=== PATIENT | female | born 1940 | race Caucasian/White ===

== ENCOUNTER 2018-02-08 18:50 | Inpatient (IN) ==
[2018-02-08] MEDS ORDERED: Naloxone 0.4 MG/ML INJ IVP PRN ×2 (23:55)
--- NOTE | 2018-02-09 00:05 | Internal Med History&Physical ---
Date of Encounter: 02/08/18 Time of Encounter: 23:00 Internal Medicine - H&P: HPI Chief complaint: Abdominal pain and vomiting Admitted From: Home Plans for Post Hospital Care: Home History of present illness: Ms. Og is a 77 year old female present to [facility] emergency room for nausea and vomiting and abdominal pain. Past medical history is significant for hypertension, rheumatoid arthritis. Patient said started from this afternoon patient suddenly started vomiting, vomiting was stomach content, no blood. Patient also started to have abdominal pain after vomiting. The pain located on epigastric area, radiates to the back. Patient denies fever, shortness of breath, or chest pain. Patient has one-time diarrhea this afternoon, after that no further diarrhea. In the [facility] emergency room, she was found elevated lipase and CT abdomen consistent with acute pancreatitis. Patient was transferred to our hospital for acute pancreatitis. Past Med Surg Social Fam HX - Past Medical History Medical history: COPD, hypertension, osteoporosis, RA Psychiatric history: no psych history - Past Surgical History Surgical History: cataract - Social History Smoking Status: Former smoker Smokeless Tobacco Status: No Alcohol use: none Drug use: none - Family History Mother History Unknown: Yes Internal Medicine - H&P: Meds Calcium Carbonate/Vitamin D3 [Calcium 600 with Vit D Chew Tb] 1 tab PO BID 06/01 [History] Denosumab [Prolia (For Outpatient Infusion)] 60 mg IJ Q6M 06/01/17 [History] Lisinopril [Zestril] 10 mg PO DAILY 06/01/17 [History] Hydroxychloroquine [Plaquenuil] 1.5 tab PO DAILY 07/17/17 [History] Sulfasalazine [Azulfidine] 500 mg PO BID 07/17/17 [History] Folic Acid 1 mg PO DAILY #30 tablet 01/18/18 [Rx] Adalimumab [Humira] 40 mg SQ Q2W 02/08/18 [History] Ferrous Sulfate [Iron] 325 mg PO BID 02/08/18 [History] 3 Allergy/AdvReac Type Severity Reaction Status Date / Time alendronate sodium Allergy Vomiting Verified 11/10/17 13:26 Penicillins [PCN] Allergy Anaphylaxis Verified 11/10/17 13:26 All Systems PM: A 10-system review of systems was performed and is negative for pertinent findings except as documented above in the HPI. - Constitutional Vitals: Temp Pulse Resp BP Pulse Ox 98.7 F 94 15 125/74 93 02/08/18 22:15 02/08/18 22:15 02/08/18 22:15 02/08/18 22:15 02/08/18 22:22 General appearance: Present: mild distress, A&O X 3, answers questions appropriately - Head Head exam: Present: atraumatic, normocephalic - Eye Eye exam: Present: PERRL, conjuntiva pink, sclera anicteric Pupils: Present: PERRL - Neck Neck exam general surgery: Present: supple, trachea midline. Absent: lymphadenopathy - Respiratory Respiratory exam: Present: CTAB. Absent: accessory muscle use, rales, rhonchi, wheezes - Cardiovascular Cardiovascular exam: Present: RRR, +S1, +S2. Absent: diastolic murmur, gallop, rubs, systolic murmur - GI/Abdominal GI/Abdominal exam: Present: normal bowel sounds, soft, no peritoneal signs. Absent: distended, tenderness - Extremities Exam Extremities exam: Present: warm, radial pulses palpable and symmetrical. Absent : calf tenderness, cyanotic, pedal edema - Neurological Exam Neurological exam: Present: CN II-XII intact, oriented X3, no focal deficits. Absent: pronater drift, facial droop, speech deficit - Skin Skin exam: Present: dry, intact Internal Med - H&P Results - EKG Data -: EKG Interpreted by Myself EKG shows normal: sinus rhythm Rate: tachycardia - Assessment and plan (1) Acute renal failure Current Visit: Yes Status: Acute Assessment and plan: Patient has severe nausea and vomiting. Her creatinine level is elevated from a normal baseline to 1.28. Consider acute renal failure, most likely due to dehydration. - Continue IV fluid to hydrate patient. Follow-up renal function. Qualifiers: Acute renal failure type: unspecified Qualified Code(s): N17.9 - Acute kidney failure, unspecified (2) Leukocytosis Current Visit: Yes Status: Acute Assessment and plan: Patient has elevated WBC to 20K, most likely reactive from acute pancreatitis and dehydration. However, patient has a mild elevated bilirubin, need to rule out acute cholangitis. Will order US liver to rule out gallstone/acute cholangitis. We will continue empirically antibiotic treatment with Cipro and Flagyl at this point. Qualifiers: Leukocytosis type: leukemoid reaction Qualified Code(s): D72.823 - Leukemoid reaction (3) Rheumatoid arthritis Current Visit: Yes Status: Acute Assessment and plan: Continue follow-up as outpatient Qualifiers: Rheumatoid arthritis location: unspecified site Rheumatoid factor presence : unspecified presence Qualified Code(s): M06.9 - Rheumatoid arthritis, unspecified (4) DVT prophylaxis Current Visit: Yes Status: Acute Assessment and plan: Heparin subcutaneously (5) Acute pancreatitis Current Visit: No Status: Acute Assessment and plan: Patient has acute onset abdominal pain with nausea vomiting. Elevated lipase and CT abdomen all suggest acute pancreatitis. - Place patient on nothing by mouth, IV fluid, pain medication and Zofran for nausea - Follow up lipase level - US liver to rule out gallstone - Lipid penal to rule out hypertriglyceridemia. - Patient denies alcohol use Qualifiers: Pancreatitis type: unspecified pancreatitis type Acute pancreatitis complication: no infection or necrosis Qualified Code(s): K85.90 - Acute pancreatitis without necrosis or infection, unspecified - Time Spent With Patient Total time spent is greater than 50% in coordination of care (as documented) at patient's floor/unit and/or counseling patient: 40 minutes Greater than 35 minutes
[2018-02-09] MEDS: OXYCODONE Oral CONC 10 MG/0.5 ML ORAL.SYG SL PRN ×4 (00:18→20:53)
[2018-02-09] MEDS: Ondansetron 4 MG/2 ML VIAL IVP PRN ×2 (00:19→04:20)
[2018-02-09] MEDS: 0.9 % Sodium Chloride 1,000 ML IVC SCH ×5 (00:23→18:10)
[2018-02-09] MEDS ORDERED: Potassium Chloride 40 MEQ, Lidocaine 1% 2 ML in D5% in Water 500 ML IVPB ONE (01:00)
[2018-02-09] MEDS ORDERED: *HR* FentaNYL (PF) 100 MCG/2 ML VIAL IVP ONE ×4 (01:53→14:13)
[2018-02-09] MEDS ORDERED: OXYCODONE Oral CONC 10 MG/0.5 ML ORAL.SYG SL PRN (04:33)
[2018-02-09] MEDS: *HR* Heparin 5,000 UNIT/ML VIAL SQ SCH ×2 (05:00→18:10)
[2018-02-09 06:06] LABS: Basophils % 0.2 %; Hematocrit 44.2 % (35.3-44.9); Immature Granulocytes % 0.4 % (0-4); Lymphocytes # 0.9 K/mcL (0.6-4.6); Lymphocytes % 4.4 %; Mean Corpuscular HGB Conc 31.7 g/dL (31.6-35.5); Mean Corpuscular Hemoglobin 30.1 pg (28.0-33.3); Mean Corpuscular Volume 95.1 fL (83.0-100.0); Mean Platelet Volume 10.7 fL (9.4-12.4); Monocytes # 1.4 K/mcL (0.0-1.3); Monocytes % 6.8 %; Neutrophils # 17.5 K/mcL (1.6-8.9); Platelet Count 152 K/mcL (140-400); Red Blood Count 4.65 M/mcL (3.82-4.97); Red Cell Distribution Width 16.5 % (11.5-14.5); Segmented Neutrophils % 88.2 %
[2018-02-09 06:20] LABS: Chol/HDL Ratio 2.7 (0-4.9)
[2018-02-09 06:33] LABS: BUN/Creatinine Ratio 18 (6-26); Blood Urea Nitrogen 18 mg/dL (8-23); Calcium 7.5 mg/dL (8.6-10.3); Carbon Dioxide 19 mEq/L (23-29); Chloride 111 mEq/L (98-107); Glucose 206 mg/dL (70-105); Lipase 1611 Units/L (11-82); Magnesium 1.5 mg/dL (1.6-2.6); Osmolality,Calculated 294 (280-300); Potassium 4.5 mEq/L (3.5-5.1); Sodium 138 mEq/L (136-145); eGFR For African Americans > 60 (> 60); eGFR For Non-African Americans 55 (> 60)
[2018-02-09] MEDS ORDERED: 0.9 % Sodium Chloride 1,000 ML IVC ONE ×2 (08:33→13:50)
--- NOTE | 2018-02-09 08:35 | Internal Med Progress Note ---
<Janel Yu - Last Filed: 02/09/18 13:35> Date of Encounter: 02/09/18 Time of Encounter: 08:30 - Assessment and plan (1) Acute pancreatitis Current Visit: No Status: Acute Assessment and plan: Patient has acute pancreatitis demonstrated by CT abdomen and elevated lipase. She had sudden onset abdominal pain with nausea and vomiting. Liver ultrasound demonstrated cholelithiasis with no evidence of acute cholecystitis. No alcohol use. No history of pancreatitis. Lipid panel WNL, calcium. Lipase 1611 (>1800) afebrile, tachycardic 110, WBC 19.9 (20.6) triglycerides 101 Ca 7.5 - NPO, IVF, Zofran for nausea -oxycodone for moderate pain and may add Dilaudid for severe pain since fentanyl and oxycodone are not helping much and she reported Dilaudid did help -recheck lipase, AST, ALT levels -G.I. consult with possible ERCP Qualifiers: Pancreatitis type: unspecified pancreatitis type Acute pancreatitis complication: no infection or necrosis Qualified Code(s): K85.90 - Acute pancreatitis without necrosis or infection, unspecified (2) Acute renal failure Current Visit: Yes Status: Acute Assessment and plan: Acute renal failure in setting of nausea, vomiting, dehydration. Most likely prerenal. Cr 0.98 (1.28) improving - Continue IVF -monitor Scr -avoid nephrotoxic agents Qualifiers: Acute renal failure type: unspecified Qualified Code(s): N17.9 - Acute kidney failure, unspecified (3) Leukocytosis Current Visit: Yes Status: Acute Assessment and plan: Patient has elevated WBC 19.9 (20.6), most likely secondary to acute pancreatitis and dehydration. Liver ultrasound demonstrated cholelithiasis without cholecystitis. Patient was empirically treated with Cipro and Flagyl due to concern of cholangitis. Qualifiers: Leukocytosis type: leukemoid reaction Qualified Code(s): D72.823 - Leukemoid reaction (4) Rheumatoid arthritis Current Visit: Yes Status: Acute Assessment and plan: Continue follow-up as outpatient Qualifiers: Rheumatoid arthritis location: unspecified site Rheumatoid factor presence : unspecified presence Qualified Code(s): M06.9 - Rheumatoid arthritis, unspecified (5) DVT prophylaxis Current Visit: Yes Status: Acute Assessment and plan: Heparin subcutaneously (6) Hypertension Current Visit: Yes Status: Acute Assessment and plan: History of hypertension controlled with lisinopril. blood pressure stable will hold blood pressure medication since NPO Qualifiers: Qualified Code(s): I10 - Essential (primary) hypertension - Time Spent With Patient Total time spent is greater than 50% in coordination of care (as documented) at patient's floor/unit and/or counseling patient: - Subjective Interval history: 77-year-old female past medical history of COPD, RA, hypertension who presented as a transfer from [place] ED due to acute pancreatitis demonstrated by CT. She presented initially complaining of 7 epigastric abdominal pain with nausea and vomiting. Upon my examination she is alert and oriented times 3 and appears uncomfortable. She reports her pain is not controlled and she feels nauseous. - Constitutional Vitals: Temp Pulse Resp BP Pulse Ox 98.6 F 110 18 110/67 91 02/09/18 06:36 02/09/18 06:36 02/09/18 06:36 02/09/18 06:36 02/09/18 06:36 General appearance: Present: mild distress, A&O X 3, answers questions appropriately Exam: Gen.: Vitals noted. No acute distress. AAOx3 HEENT: oropharynx clear, Normocephalic, atraumatic Neck: Supple. No adenopathy. Cardiac: RRR, no murmur, +S1/S2 Pulmonary: CTA bilaterally, no wheezes, rales or rhonchi, equal chest expansion Abdomen: soft, diffusely tender, Bowel sounds noted, no guarding Extremities: no BLE edema, nontender calf, no cyanosis or clubbing Neuro: A&Ox3, moves all extremities, no focal deficits Psych: Appropriate mood and behavior Internal Medicine: Result - Labs CBC & Chem 7: 02/09/18 05:37 02/09/18 05:37 Labs: Short CBC 02/09/18 Range/Units 05:37 WBC 19.9 H (4.3-11.1) K/mcL Hgb 14.0 (11.5-15.4) g/dL Hct 44.2 (35.3-44.9) % Plt Count 152 (140-400) K/mcL Neutrophils # 17.5 H (1.6-8.9) K/mcL BMP 02/09/18 05:37 Sodium 138 Potassium 4.5 D Chloride 111 H Carbon Dioxide 19 L BUN 18 Creatinine 0.98 Glucose 206 H Calcium 7.5 L - Impressions Impressions Liver Ultrasound 02/09/18 07:30 IMPRESSION: Findings consistent with pancreatitis. Cholelithiasis with no evidence for acute cholecystitis. D/ / Clark Lozada MD / Clark Lozada MD Interpreting Provider: Clark Lozada MD Consult Discharge Plan - Plan Referrals: Chau Cadena MD [Primary Care Provider] - <Quincy Zheng - Last Filed: 02/09/18 18:01> Date of Encounter: 02/09/18 - Assessment and plan (1) Acute pancreatitis Current Visit: No Status: Acute Qualifiers: Pancreatitis type: unspecified pancreatitis type Acute pancreatitis complication: no infection or necrosis Qualified Code(s): K85.90 - Acute pancreatitis without necrosis or infection, unspecified (2) Acute renal failure Current Visit: Yes Status: Acute Qualifiers: Acute renal failure type: unspecified Qualified Code(s): N17.9 - Acute kidney failure, unspecified (3) Leukocytosis Current Visit: Yes Status: Acute Qualifiers: Leukocytosis type: leukemoid reaction Qualified Code(s): D72.823 - Leukemoid reaction (4) Rheumatoid arthritis Current Visit: Yes Status: Acute Qualifiers: Rheumatoid arthritis location: unspecified site Rheumatoid factor presence : unspecified presence Qualified Code(s): M06.9 - Rheumatoid arthritis, unspecified (5) DVT prophylaxis Current Visit: Yes Status: Acute (6) Hypertension Current Visit: Yes Status: Acute Qualifiers: Qualified Code(s): I10 - Essential (primary) hypertension - Time Spent With Patient Total time spent is greater than 50% in coordination of care (as documented) at patient's floor/unit and/or counseling patient: - Constitutional Vitals: Temp Pulse Resp BP Pulse Ox 98.6 F 122 18 100/68 92 02/09/18 14:30 02/09/18 14:30 02/09/18 14:30 02/09/18 14:30 02/09/18 14:30 Internal Medicine: Result - Labs CBC & Chem 7: 02/09/18 05:37 02/09/18 05:37 Labs: Short CBC 02/09/18 Range/Units 05:37 WBC 19.9 H (4.3-11.1) K/mcL Hgb 14.0 (11.5-15.4) g/dL Hct 44.2 (35.3-44.9) % Plt Count 152 (140-400) K/mcL Neutrophils # 17.5 H (1.6-8.9) K/mcL BMP 02/09/18 05:37 Sodium 138 Potassium 4.5 D Chloride 111 H Carbon Dioxide 19 L BUN 18 Creatinine 0.98 Glucose 206 H Calcium 7.5 L Liver Function 02/09/18 Range/Units 11:57 Total Bilirubin 0.8 (0.3-1.0) mg/dL AST 69 H (13-39) Units/L ALT 91 H (7-52) Units/L - Impressions Impressions Liver Ultrasound 02/09/18 07:30 IMPRESSION: Findings consistent with pancreatitis. Cholelithiasis with no evidence for acute cholecystitis. D/ / Clark Lozada MD / Clark Lozada MD Interpreting Provider: Clark Lozada MD - Attending Attestation I performed a history and physical examination of the patient and discussed his/ her management with the resident. I reviewed the residents note and agree with the documented findings and plan of care.
[2018-02-09] MEDS: MetroNIDAZOLE 500 MG/100 ML 500 MG/100 ML BAG IVPB SCH ×3 (09:15→23:04)
[2018-02-09] MEDS ORDERED: *HR* FentaNYL (PF) 100 MCG/2 ML VIAL EP ONE (11:48)
[2018-02-09] MEDS: *HR* HYDROmorphone 2 MG/ML SYRINGE IVP PRN ×3 (14:44→23:02)
[2018-02-09] MEDS ORDERED: *HR* HYDROmorphone 2 MG/ML SYRINGE IVP PRN (15:25)
[2018-02-09 16:48] LABS: Bilirubin,Total 0.8 mg/dL (0.3-1.0)
[2018-02-10] MEDS: 0.9 % Sodium Chloride 1,000 ML IVC SCH (02:28)
[2018-02-10] MEDS: *HR* HYDROmorphone 2 MG/ML SYRINGE IVP PRN ×5 (04:08→22:01)
[2018-02-10 05:36] LABS: Nucleated Red Blood Cells 0.3 /100 WBC (0)
[2018-02-10 05:38] LABS: Hematocrit 39.6 % (35.3-44.9); Hemoglobin 12.3 g/dL (11.5-15.4); Mean Corpuscular HGB Conc 31.1 g/dL (31.6-35.5); Mean Corpuscular Hemoglobin 30.8 pg (28.0-33.3); Mean Platelet Volume 11.1 fL (9.4-12.4); Platelet Count 117 K/mcL (140-400); Red Cell Distribution Width 17.4 % (11.5-14.5)
[2018-02-10] MEDS: *HR* Heparin 5,000 UNIT/ML VIAL SQ SCH ×2 (05:50→17:50)
[2018-02-10 06:06] LABS: Lymphocytes # 3.7 K/mcL (0.6-4.6); Neutrophils # 22.8 K/mcL (1.6-8.9); Platelet Estimate Slight Decrease (Normal); Polychromasia 1+ (Not Present)
[2018-02-10 06:10] LABS: Anisocytosis 1+ (Not Present); Macrocytosis Present (Not Present)
[2018-02-10 07:15] LABS: Calcium 5.9 mg/dL (8.6-10.3); Potassium 4.7 mEq/L (3.5-5.1)
[2018-02-10] MEDS ORDERED: Calcium Gluconate 2,000 MG in D5% in Water 100 ML IVPB STA (07:27)
[2018-02-10] MEDS ORDERED: Calcium Gluconate 2,000 MG in 0.9 % Sodium Chloride 100 ML IVPB ONE ×2 (07:59→16:31)
--- NOTE | 2018-02-10 08:25 | Internal Med Progress Note ---
<Janel Yu - Last Filed: 02/10/18 08:22> Date of Encounter: 02/10/18 Time of Encounter: 08:15 - Assessment and plan (1) Acute pancreatitis Current Visit: No Status: Inactive Assessment and plan: Patient has acute pancreatitis demonstrated by CT abdomen and elevated lipase. She had sudden onset abdominal pain with nausea and vomiting. Liver ultrasound demonstrated cholelithiasis with no evidence of acute cholecystitis. No alcohol use. No history of pancreatitis. Lipid panel WNL, calcium. Lipase 1093 (>1800) afebrile, tachycardic 117, WBC 25.6 (20.6) triglycerides 101 Ca 7.5 -patient reports abdominal pain has improved but is still uncomfortable. Abdominal exam unchanged from yesterday: soft, diffusely tender, bowel sounds present - NPO, IVF, Zofran for nausea -oxycodone for moderate pain and may add Dilaudid for severe pain since fentanyl and oxycodone are not helping much and she reported Dilaudid did help -G.I. consulted, recommendations appreciated Qualifiers: Pancreatitis type: unspecified pancreatitis type Acute pancreatitis complication: no infection or necrosis Qualified Code(s): K85.90 - Acute pancreatitis without necrosis or infection, unspecified (2) Acute renal failure Current Visit: Yes Status: Acute Assessment and plan: Acute renal failure in setting of nausea, vomiting, dehydration. Most likely prerenal. Cr 1.59 (1.28) - Continue IVF -monitor Scr -avoid nephrotoxic agents Qualifiers: Acute renal failure type: unspecified Qualified Code(s): N17.9 - Acute kidney failure, unspecified (3) Leukocytosis Current Visit: Yes Status: Acute Assessment and plan: Patient has elevated WBC 25.6 (20.6), most likely secondary to acute pancreatitis and dehydration. Liver ultrasound demonstrated cholelithiasis without cholecystitis. -Patient was empirically treated with Cipro and Flagyl. Continue antibiotics -will continue to monitor Qualifiers: Leukocytosis type: leukemoid reaction Qualified Code(s): D72.823 - Leukemoid reaction (4) Hypocalcemia Current Visit: Yes Status: Acute Assessment and plan: Patient takes calcium supplements b.i.d. at home for hypocalcemia Calcium 5.9 -supplement calcium today and as needed -will continue to monitor (5) Hypertension Current Visit: Yes Status: Acute Assessment and plan: History of hypertension controlled with lisinopril. blood pressure stable will hold blood pressure medication since NPO Qualifiers: Qualified Code(s): I10 - Essential (primary) hypertension (6) Rheumatoid arthritis Current Visit: Yes Status: Acute Assessment and plan: Continue follow-up as outpatient Qualifiers: Rheumatoid arthritis location: unspecified site Rheumatoid factor presence : unspecified presence Qualified Code(s): M06.9 - Rheumatoid arthritis, unspecified (7) DVT prophylaxis Current Visit: Yes Status: Acute Assessment and plan: Heparin subcutaneously (8) Hypoxia Current Visit: Yes Status: Acute Assessment and plan: Likely secondary to fluid overload due to treatment with IVF for pancreatitis. But also in differential PE and ARDS. -SPO2 90% on 4L -patient denies chest pain, shortness of breath. -Decreased breath sounds bilaterally at bases. No lower extremity swelling. -Order CXR to evaluate for fluid overloaded. Consider if CXR normal then order chest CT and lower extremity Doppler's -Continue supplemental oxygen - Time Spent With Patient Total time spent is greater than 50% in coordination of care (as documented) at patient's floor/unit and/or counseling patient: - Subjective Interval history: 77-year-old female past medical history of COPD, RA, hypertension who presented as a transfer from [place] [facility] due to acute pancreatitis demonstrated by CT and elevated lipase. She presented initially complaining of sudden epigastric abdominal pain with nausea and vomiting. Upon my examination she is alert and oriented times 3 and appears uncomfortable but more comfortable than yesterday. She reports her pain is more tolerable. She admits to some nausea noted vomiting. She denies chest pain, shortness of breath, change in urination. - Constitutional Vitals: Temp Pulse Resp BP Pulse Ox 99.6 F 117 16 98/53 90 02/10/18 06:58 02/10/18 06:58 02/10/18 06:58 02/10/18 06:58 02/10/18 06:58 General appearance: Present: mild distress, A&O X 3, answers questions appropriately Exam: Gen.: Vitals noted. No acute distress. AAOx3 HEENT: oropharynx clear, Normocephalic, atraumatic Neck: Supple. No adenopathy. Cardiac: RRR, no murmur, +S1/S2 Pulmonary: decreased breath sounds at bases bilaterally, no wheezes, rales or rhonchi, equal chest expansion Abdomen: soft, diffusely tender, Bowel sounds noted, no guarding MSK: ROM intact, no joint swelling noted Extremities: no BLE edema, nontender calf, no cyanosis or clubbing Neuro: A&Ox3, moves all extremities, no focal deficits Psych: Appropriate mood and behavior Internal Medicine: Result - Labs CBC & Chem 7: 02/10/18 05:18 02/10/18 06:36 Labs: Short CBC 02/10/18 Range/Units 05:18 WBC 26.5 H (4.3-11.1) K/mcL Hgb 12.3 D (11.5-15.4) g/dL Hct 39.6 (35.3-44.9) % Plt Count 117 L (140-400) K/mcL Neutrophils # 22.8 H (1.6-8.9) K/mcL BMP 02/10/18 06:36 Sodium 135 L Potassium 4.7 Chloride 111 H Carbon Dioxide 19 L BUN 29 H Creatinine 1.59 H Glucose 134 H Calcium 5.9 L* Liver Function 02/09/18 Range/Units 11:57 Total Bilirubin 0.8 (0.3-1.0) mg/dL AST 69 H (13-39) Units/L ALT 91 H (7-52) Units/L Consult Discharge Plan - Plan Referrals: Chau Cadena MD [Primary Care Provider] - <[facility] lane - Last Filed: 02/10/18 12:43> Date of Encounter: 02/10/18 - Assessment and plan (1) Acute pancreatitis Current Visit: No Status: Inactive Qualifiers: Pancreatitis type: unspecified pancreatitis type Acute pancreatitis complication: no infection or necrosis Qualified Code(s): K85.90 - Acute pancreatitis without necrosis or infection, unspecified (2) Acute renal failure Current Visit: Yes Status: Acute Qualifiers: Acute renal failure type: unspecified Qualified Code(s): N17.9 - Acute kidney failure, unspecified (3) Leukocytosis Current Visit: Yes Status: Acute Qualifiers: Leukocytosis type: leukemoid reaction Qualified Code(s): D72.823 - Leukemoid reaction (4) Rheumatoid arthritis Current Visit: Yes Status: Acute Qualifiers: Rheumatoid arthritis location: unspecified site Rheumatoid factor presence : unspecified presence Qualified Code(s): M06.9 - Rheumatoid arthritis, unspecified (5) DVT prophylaxis Current Visit: Yes Status: Acute (6) Hypertension Current Visit: Yes Status: Acute Qualifiers: Qualified Code(s): I10 - Essential (primary) hypertension (7) Hypocalcemia Current Visit: Yes Status: Acute (8) Hypoxia Current Visit: Yes Status: Acute - Time Spent With Patient Total time spent is greater than 50% in coordination of care (as documented) at patient's floor/unit and/or counseling patient: - Constitutional Vitals: Temp Pulse Resp BP Pulse Ox 99.6 F 117 16 88/59 89 02/10/18 11:13 02/10/18 11:13 02/10/18 10:28 02/10/18 11:13 02/10/18 11:13 Internal Medicine: Result - Labs CBC & Chem 7: 02/10/18 05:18 02/10/18 06:36 Labs: Short CBC 02/10/18 Range/Units 05:18 WBC 26.5 H (4.3-11.1) K/mcL Hgb 12.3 D (11.5-15.4) g/dL Hct 39.6 (35.3-44.9) % Plt Count 117 L (140-400) K/mcL Neutrophils # 22.8 H (1.6-8.9) K/mcL BMP 02/10/18 06:36 Sodium 135 L Potassium 4.7 Chloride 111 H Carbon Dioxide 19 L BUN 29 H Creatinine 1.59 H Glucose 134 H Calcium 5.9 L* Liver Function 02/09/18 02/10/18 Range/Units 11:57 09:55 Total Bilirubin 0.8 1.3 H (0.3-1.0) mg/dL Direct Bilirubin 0.8 H (0.0-0.2) mg/dL AST 69 H 46 H (13-39) Units/L ALT 91 H 51 (7-52) Units/L Alkaline Phosphatase 45 (34-104) Units/L Albumin 2.8 L (3.5-5.7) g/dL - ABG Interpretation ABG results: ABG ABG pH 7.26 pH Units (7.32-7.45) L 02/10/18 10:31 ABG pCO2 37 mmHg (35-45) 02/10/18 10:31 ABG pO2 67 mmHg (85-104) L 02/10/18 10:31 ABG O2 Saturation 90 % (95-98) L 02/10/18 10:31 - Impressions Impressions Chest X-Ray 02/10/18 08:22 IMPRESSION: Small pleural effusions with associated airspace disease, atelectasis versus pneumonia. Findings are new from 02/08/2018. D/ / Clark Sabillon MD / Clark Sabillon MD Interpreting Provider: Clark Sabillon MD - Attending Attestation I performed a history and physical examination of the patient and discussed his/ her management with the resident. I reviewed the residents note and agree with the documented findings and plan of care. Patient continues to require more oxygen and takes only shallow breaths. Chest x-ray shows atelectasis bilaterally. Creatinine has worsened today to 1.59. Blood pressure last 88/50 with HR 117. 1. Acute pancreatitis - lactic acid 2.2, lipase is decreasing, pain is improving though patient still in sever pain. - Continue IV fluids, IV pain medication, symptomatic treatment, NPO. - IV fluids may need held. Patient having severe abdominal pain still but fluid overloaded - GI consulted, recommendations appreciated 2. Acute respiratory failure with hypoxia - Not on O2 at home, currently saturatiing 90% on 4 L O2. ABG consistent with respiratory acidosis also metabolic acidosis as well. - possibly from atelectasis, fluid overload. Chest x-ray today did show small pleural effusions with airspace disease. - Echocardiogram, rule out cardiac etiology - Continue incentive spirometry. - Consult Pulmonology 3. Non-anion gap metabolic acidosis 4. Acute renal failure May be contrast induced nephropathy, patient was given aggressive IV fluid hydration, will recheck. 5. Hypocalcemia - replace as needed 6. Leukocytosis Worsened today to 26k, was 19k. This is likely to pancreatitis. No signs of cholecystitis on liver ultrasound or CT abdomen/pelvis. Continue Cipro/ Flagyl
[2018-02-10] MEDS: MetroNIDAZOLE 500 MG/100 ML 500 MG/100 ML BAG IVPB SCH ×2 (09:48→17:01)
[2018-02-10 10:24] LABS: VBG Ionized Calcium 0.82 mmol/L (1.15-1.35)
[2018-02-10] MEDS: Levalbuterol Neb 1.25 MG/3 ML IH SCH ×3 (10:28→22:56)
[2018-02-10 10:29] LABS: Albumin 2.8 g/dL (3.5-5.7); Albumin/Globulin Ratio 1.4 (1.1-2.2); Bilirubin,Direct 0.8 mg/dL (0.0-0.2); Bilirubin,Indirect 0.5 mg/dL (0.0-1.2); Bilirubin,Total 1.3 mg/dL (0.3-1.0); Total Protein 4.8 g/dL (6.4-8.9)
[2018-02-10 10:35] LABS: ABG Base Excess -10 mEq/L (-2 to 3); ABG HCO3 17 mEq/L (21-27); ABG Oxygen Saturation 90 % (95-98); ABG PCO2 37 mmHg (35-45); ABG PH 7.26 pH Units (7.32-7.45); ABG PO2 67 mmHg (85-104); ABG TCO2 18 mEq/L (20-26)
[2018-02-10] MEDS ORDERED: 0.9 % Sodium Chloride 500 ML IVC ONE (11:53)
[2018-02-10] MEDS ORDERED: 0.9 % Sodium Chloride 500 ML ONE (12:21)
--- NOTE | 2018-02-10 14:27 | Gastroenterology Consult Note ---
<Bianka Reed - Last Filed: 02/10/18 14:20> Date of Encounter: 02/10/18 Time of Encounter: 11:20 - Assessment and plan (1) Acute pancreatitis Current Visit: Yes Status: Acute Assessment and plan: Pt presents with sudden onset of abdominal pain, nausea and vomiting. She has elevated lipase, and CT images consistent with acute pancreatitis. She also has elevated Wbc and persistent pain while NPO. Will order MRCP stat to rule out cholangitis. She may need ERCP dependent on MRCP results. Qualifiers: Pancreatitis type: unspecified pancreatitis type Acute pancreatitis complication: unspecified Qualified Code(s): K85.90 - Acute pancreatitis without necrosis or infection, unspecified - Time Spent With Patient Total time spent is greater than 50% in coordination of care (as documented) at patient's floor/unit and/or counseling patient: GI History of Present Illness - Data of Consult Patient: new to practice Consult date: 02/10/18 Requesting Physician: Elio Ayon MD - Consult Narrative Reason for consult: acute pancreatitis History of present illness: Ms. Og is a 77 year old female present to [place] emergency room for nausea and vomiting and abdominal pain. Past medical history is significant for hypertension, rheumatoid arthritis. Patient said started from this afternoon patient suddenly started vomiting, vomiting was stomach content, no blood. Patient also started to have abdominal pain after vomiting. The pain located on epigastric area, radiates to the back. Patient denies fever, shortness of breath, or chest pain. Patient has one-time diarrhea this afternoon, after that no further diarrhea. In the [place] emergency room, she was found elevated lipase and CT abdomen consistent with acute pancreatitis. Patient was transferred to our hospital for acute pancreatitis.RUQ ultrasound shows enlarged pancreas consistent with the patient' s known history pancreatitis. There is fluid seen around the liver consistent with ascites and the patient's known history of pancreatitis. Cholelithiasis no evidence of acute cholecystitis. She has been NPO and receiving IVF, cipro, flagyl, and pain medications. She has had persistant pain, and her WBC are 36, lipase 1093, and calcium 5.9 this am. She is on sulfasalazine, plaquenil, and humira at home for RA. EGD: denies Colon: 06/04 normal NSAIDS: denies Anticoagulation: heparin 0550 Past Med Surg Social Fam HX - Past Medical History Medical history: COPD, hypertension, osteoporosis, RA Psychiatric history: no psych history - Past Surgical History Surgical History: cataract - Social History Smoking Status: Former smoker Smokeless Tobacco Status: No Alcohol use: none Drug use: none - Family History Mother History Unknown: Yes Review of Systems: GI: as per [facility]: denies fever or chills EYES: denies yellow discoloration ENT: denies pain with swallowing or difficulty swallowing CARDIO: denies chest pain, palpitations RESP: Shortness of breath with exertion : denies change in color of urine NEURO: weakness HEME: Denies any bruising MS: chronic back and joint pain. DERM: denies rash or itching PSYCH: Denies history of anxiety or depression - Constitutional Vitals: Temp Pulse Resp BP Pulse Ox 99.6 F 118 22 110/72 88 02/10/18 11:13 02/10/18 13:09 02/10/18 13:09 02/10/18 13:09 02/10/18 13:09 Exam: CONSTITUTIONAL:~drowsy but able to answer questions,~HEAD:~normocephalic.~EYES:~ no jaundice.~NECK:~no obvious swelling.~HEART:~regular rate and rhythm, no murmurs.~LUNGS:~bilateral fair air entry.~ABDOMEN:~distended, soft, very tender , no masses palpable, no organomegaly.~RECTAL EXAM:~Deferred.~EXTREMITIES:~no clubbing, cyanosis or edema.~SKIN:~pallor noted, no stigmata of chronic liver disease.~NEUROLOGIC:~no obvious focal defect.~~~~ Results - Labs CBC & Chem 7: 02/10/18 05:18 02/10/18 06:36 Labs: Last Result Calcium 5.9 mg/dL (8.6-10.3) L* 02/10/18 06:36 Triglycerides 101 mg/dL (< 150) 02/09/18 05:37 Entire Visit Hgb 12.3 g/dL (11.5-15.4) D 02/10/18 05:18 Hct 39.6 % (35.3-44.9) 02/10/18 05:18 Total Bilirubin 1.3 mg/dL (0.3-1.0) H 02/10/18 09:55 AST 46 Units/L (13-39) H 02/10/18 09:55 ALT 51 Units/L (7-52) 02/10/18 09:55 Lipase 1093 Units/L (11-82) H 02/10/18 06:36 - ABG ABG results: ABG ABG pH 7.26 pH Units (7.32-7.45) L 02/10/18 10:31 ABG pCO2 37 mmHg (35-45) 02/10/18 10:31 ABG pO2 67 mmHg (85-104) L 02/10/18 10:31 ABG O2 Saturation 90 % (95-98) L 02/10/18 10:31 - Impressions Impressions Chest X-Ray 02/10/18 08:22 IMPRESSION: Small pleural effusions with associated airspace disease, atelectasis versus pneumonia. Findings are new from 02/08/2018. D/ / Clark Sabillon MD / Clark Sabillon MD Interpreting Provider: Clark Sabillon MD Consult Discharge Plan - Plan Referrals: Chau Cadena MD [Primary Care Provider] - <Hina Bhatt - Last Filed: 02/10/18 20:49> Date of Encounter: 02/10/18 Time of Encounter: 19:00 - Time Spent With Patient Total time spent is greater than 50% in coordination of care (as documented) at patient's floor/unit and/or counseling patient: GI History of Present Illness - Data of Consult Requesting Physician: Elio Ayon MD - Consult Narrative History of present illness: Ms. Og is a 77 year old female - Constitutional Vitals: Temp Pulse Resp BP Pulse Ox 99.4 F 120 24 106/68 94 02/10/18 16:48 02/10/18 16:48 02/10/18 16:48 02/10/18 16:48 02/10/18 16:48 Results - Labs CBC & Chem 7: 02/10/18 05:18 02/10/18 06:36 Labs: Last Result Calcium 5.9 mg/dL (8.6-10.3) L* 02/10/18 06:36 Triglycerides 101 mg/dL (< 150) 02/09/18 05:37 Entire Visit Hgb 12.3 g/dL (11.5-15.4) D 02/10/18 05:18 Hct 39.6 % (35.3-44.9) 02/10/18 05:18 Total Bilirubin 1.3 mg/dL (0.3-1.0) H 02/10/18 09:55 AST 46 Units/L (13-39) H 02/10/18 09:55 ALT 51 Units/L (7-52) 02/10/18 09:55 Lipase 1093 Units/L (11-82) H 02/10/18 06:36 - ABG ABG results: ABG ABG pH 7.26 pH Units (7.32-7.45) L 02/10/18 10:31 ABG pCO2 37 mmHg (35-45) 02/10/18 10:31 ABG pO2 67 mmHg (85-104) L 02/10/18 10:31 ABG O2 Saturation 90 % (95-98) L 02/10/18 10:31 - Impressions Impressions Chest X-Ray 02/10/18 08:22 IMPRESSION: Small pleural effusions with associated airspace disease, atelectasis versus pneumonia. Findings are new from 02/08/2018. D/ / Clark Sabillon MD / Clark Sabillon MD Interpreting Provider: Clark Sabillon MD Abdomen MRI 02/10/18 09:41 IMPRESSION: 1. This evaluation is moderately limited due to motion, as well as artifact related to body habitus. 2. Pleural effusions, ascites and anasarca are identified. 3. Moderate mesenteric fat stranding around the pancreas. 4. No focal signal abnormality related to the pancreatic parenchyma ; however, this finding is considered limited in sensitivity. 5. Cholelithiasis 6. No obvious choledocholithiasis; however, MRCP images suffer from motion degradation. Dilation of the biliary tree noted with the common bile duct measuring up to 8 mm. Pancreatic duct is not dilated. D/ / Max Barnes / Max Barnes Interpreting Provider: Max Barnes - Attending Attestation I have personally performed a face to face evaluation on this patient. I have reviewed and agree with the care plan. History and Exam by me shows: Patient seen at the bedside currently she has a mask in place. Per patient her abdominal pain is better controlled. Assessment patient with gallstone pancreatitis with pleural effusion/ respiratory distress. MRCP is negative for any CBD obstruction. Recommendation: Pain control IV fluid.
--- NOTE | 2018-02-10 16:07 | Pulmonology Consult Note ---
Date of Encounter: 02/10/18 Time of Encounter: 13:00 Assessment and Plan (1) Acute pancreatitis Status: Acute Patient was evaluated and I suspect her hypoxia is multifactorial mainly from splinting and atelectasis from abdominal pain and encouraged her to participate in the incentive spirometry and pleural effusion is expected with patients with pancreatitis. However reviewing her MRI of her abdomen and the pancreatic findings this is of concern especially with white cell count increasing and electrolytes abnormalities mainly calcium. I have discussed with the primary team for GI consultation and consider transferring patients to [facility]. Limit fluid resuscitation as long as blood pressure is stable and no evidence of hypoperfusion. Patient is being covered with antibiotics appropriately. Patient has history of smoking and bronchodilators is reasonable. Thank you very much for consultation we will continue follow-up. Qualifiers: Pancreatitis type: unspecified pancreatitis type Acute pancreatitis complication: unspecified Qualified Code(s): K85.90 - Acute pancreatitis without necrosis or infection, unspecified (2) Atelectasis of both lungs Status: Acute (3) Hypoxia Status: Acute (4) Rheumatoid arthritis Status: Chronic Qualifiers: Rheumatoid arthritis location: unspecified site Rheumatoid factor presence : unspecified presence Qualified Code(s): M06.9 - Rheumatoid arthritis, unspecified (5) Acute kidney injury Status: Acute History of Present Illness Consult date: 02/10/18 Requesting physician: Quincy Zheng Reason for consult: other (Pancreatitis) Chief complaint: Abdominal pain and nausea and vomiting History of present illness: This is pleasant 77-year-old female with past medical history significant for smoking and she has been transferred from [place] emergency room for nausea and vomiting and abdominal pain and she was diagnosed with pancreatitis. Patient started to have more shortness of breath and requiring oxygen and pulmonary was consult that for evaluation. Patient was evaluated in the presence of her daughter at the bedside. Patient also has history of rheumatoid arthritis. Patient has poor appetite now and she continued to have abdominal pains which radiate to her back and denies any fever or chest pain. Patient has no constipation. Patient had evidence of pleural effusion and atelectasis on the images. Past Med Surg Social Fam HX - Past Medical History Medical history: COPD, hypertension, osteoporosis, RA Psychiatric history: no psych history - Past Surgical History Surgical History: cataract - Social History Smoking Status: Former smoker Smokeless Tobacco Status: No Alcohol use: none Drug use: none - Family History Mother History Unknown: Yes Medications and Allergies Calcium Carbonate/Vitamin D3 [Calcium 600 with Vit D Chew Tb] 1 tab PO BID 06/01 [History] Denosumab [Prolia (For Outpatient Infusion)] 60 mg IJ Q6M 06/01/17 [History] Lisinopril [Zestril] 10 mg PO DAILY 06/01/17 [History] Hydroxychloroquine [Plaquenuil] 300 mg PO [id number] 07/17/17 [History] Sulfasalazine [Azulfidine] 1,000 mg PO BID 07/17/17 [History] Folic Acid 1 mg PO DAILY #30 tablet 01/18/18 [Rx] Adalimumab [Humira] 40 mg SQ Q2W 02/08/18 [History] Ferrous Sulfate [Iron] 325 mg PO BID 02/08/18 [History] Hydroxychloroquine [Plaquenuil] 400 mg PO SUSA 02/09/18 [History] 3 Allergy/AdvReac Type Severity Reaction Status Date / Time alendronate sodium Allergy Vomiting Verified 11/10/17 13:26 Penicillins [PCN] Allergy Anaphylaxis Verified 11/10/17 13:26 All Systems: The remainder of the systems were reviewed and are negative Physical Examination Vital Signs: Vital Signs, Last 4 Hours Pulse Resp BP Pulse Ox 02/10/18 13:09 118 22 110/72 88 General appearance: appears uncomfortable Eyes: nonicteric ENT: oropharynx dry Mallampati (class): 3 Neck: supple Effort: mildly labored Auscultation: bilateral: diminished breath sounds (Mainly in the bases) Percussion: bilateral: dull Cardiovascular: regular rate and rhythm Gastrointestinal: hypoactive bowel sounds, tender Extremities: no cyanosis, edema normal mental status, non-focal exam mood appropriate Results - Laboratory Findings CBC and BMP: 02/10/18 05:18 02/10/18 06:36 ABG ABG pH 7.26 pH Units (7.32-7.45) L 02/10/18 10:31 ABG pCO2 37 mmHg (35-45) 02/10/18 10:31 ABG pO2 67 mmHg (85-104) L 02/10/18 10:31 ABG O2 Saturation 90 % (95-98) L 02/10/18 10:31 Abnormal lab findings: Abnormal lab results WBC 26.5 K/mcL (4.3-11.1) H 02/10/18 05:18 MCHC 31.1 g/dL (31.6-35.5) L 02/10/18 05:18 RDW 17.4 % (11.5-14.5) H 02/10/18 05:18 Plt Count 117 K/mcL (140-400) L 02/10/18 05:18 Band Neutrophils % 6.0 % (0-4) H 02/10/18 05:18 Neutrophils # 22.8 K/mcL (1.6-8.9) H 02/10/18 05:18 Nucleated RBCs/100 WBC 0.3 /100 WBC (0) H 02/10/18 05:18 Platelet Estimate Slight Decrease (Normal) L 02/10/18 05:18 Polychromasia 1+ (Not Present) A 02/10/18 05:18 Anisocytosis 1+ (Not Present) A 02/10/18 05:18 Macrocytosis Present (Not Present) A 02/10/18 05:18 ABG pH 7.26 pH Units (7.32-7.45) L 02/10/18 10:31 ABG pO2 67 mmHg (85-104) L 02/10/18 10:31 ABG HCO3 17 mEq/L (21-27) L 02/10/18 10:31 ABG Total CO2 18 mEq/L (20-26) L 02/10/18 10:31 ABG O2 Saturation 90 % (95-98) L 02/10/18 10:31 ABG Base Excess -10 mEq/L (-2 to 3) L 02/10/18 10:31 Sodium 135 mEq/L (136-145) L 02/10/18 06:36 Chloride 111 mEq/L (98-107) H 02/10/18 06:36 Carbon Dioxide 19 mEq/L (23-29) L 02/10/18 06:36 BUN 29 mg/dL (8-23) H 02/10/18 06:36 Creatinine 1.59 mg/dL (0.60-1.20) H 02/10/18 06:36 Est GFR ( Amer) 38 (> 60) L 02/10/18 06:36 Est GFR (Non-Af Amer) 31 (> 60) L 02/10/18 06:36 Glucose 134 mg/dL (70-105) H 02/10/18 06:36 POC Glucose 107 mg/dL (70-99) H 02/10/18 11:14 Calcium 5.9 mg/dL (8.6-10.3) L* 02/10/18 06:36 Venous Ioniz Calcium 0.82 mmol/L (1.15-1.35) L 02/10/18 10:18 Magnesium 1.5 mg/dL (1.6-2.6) L 02/09/18 05:37 Total Bilirubin 1.3 mg/dL (0.3-1.0) H 02/10/18 09:55 Direct Bilirubin 0.8 mg/dL (0.0-0.2) H 02/10/18 09:55 AST 46 Units/L (13-39) H 02/10/18 09:55 Serum Total Protein 4.8 g/dL (6.4-8.9) L 02/10/18 09:55 Albumin 2.8 g/dL (3.5-5.7) L 02/10/18 09:55 Globulin 2.0 g/dL (2.4-3.5) L 02/10/18 09:55 HDL Cholesterol 62 mg/dL (40-59) H 02/09/18 05:37 Lipase 1093 Units/L (11-82) H 02/10/18 06:36 - Diagnostic Findings Chest x-ray: report reviewed, image reviewed - Clinical Findings Intake & Output: Intake & Output 02/10/18 02/10/18 02/10/18 07:59 15:59 23:59 Intake Total 1100 / 1100 500 / 500 Output Total 0 / 0 350 / 350 Balance 1100 / 1100 150 / 150 Weight 94.2 kg Consult Discharge Plan - Plan Referrals: Chau Cadena MD [Primary Care Provider] -
[2018-02-10] MEDS: Ringers Solution, Lactated 1,000 ML IVC SCH (17:01)
[2018-02-10 23:54] LABS: ABG Base Excess -11 mEq/L (-2 to 3); ABG HCO3 17 mEq/L (21-27); ABG Oxygen Saturation 96 % (95-98); ABG PCO2 49 mmHg (35-45); ABG PH 7.15 pH Units (7.32-7.45); ABG PO2 105 mmHg (85-104); ABG TCO2 19 mEq/L (20-26); Blood Gas Modality NIV
[2018-02-11] MEDS: MetroNIDAZOLE 500 MG/100 ML 500 MG/100 ML BAG IVPB SCH ×4 (00:29→23:55)
[2018-02-11 01:51] LABS: ABG Base Excess -9 mEq/L (-2 to 3); ABG HCO3 18 mEq/L (21-27); ABG Oxygen Saturation 98 % (95-98); ABG PCO2 41 mmHg (35-45); ABG PH 7.25 pH Units (7.32-7.45); ABG PO2 124 mmHg (85-104); ABG TCO2 19 mEq/L (20-26); Blood Gas Modality NIV
[2018-02-11] MEDS: *HR* HYDROmorphone 2 MG/ML SYRINGE IVP PRN ×2 (03:11→19:55)
[2018-02-11] MEDS: Levalbuterol Neb 1.25 MG/3 ML IH SCH ×4 (04:13→23:50)
[2018-02-11 04:57] LABS: Basophils % 0.1 %; Hematocrit 31.5 % (35.3-44.9); Immature Granulocytes % 1.4 % (0-4); Lymphocytes # 0.7 K/mcL (0.6-4.6); Mean Corpuscular HGB Conc 31.4 g/dL (31.6-35.5); Mean Corpuscular Volume 98.7 fL (83.0-100.0); Mean Platelet Volume 10.9 fL (9.4-12.4); Monocytes # 1.4 K/mcL (0.0-1.3); Monocytes % 9.5 %; Neutrophils # 12.3 K/mcL (1.6-8.9); Nucleated Red Blood Cells 0.3 /100 WBC (0); Platelet Count 113 K/mcL (140-400); Red Blood Count 3.19 M/mcL (3.82-4.97); Red Cell Distribution Width 17.6 % (11.5-14.5)
[2018-02-11 05:00] LABS: Hemoglobin 9.9 g/dL (11.5-15.4)
[2018-02-11 05:18] LABS: Calcium 6.1 mg/dL (8.6-10.3); Potassium 4.9 mEq/L (3.5-5.1)
[2018-02-11 05:19] LABS: VBG HCO3 19 mEq/L (21-27); VBG PCO2 53 mmHg (41-51); VBG PH 7.17 pH Units (7.32-7.42); VBG PO2 80 mmHg (25-50)
[2018-02-11] MEDS ORDERED: Ringers Solution, Lactated 500 ML IVC ONE (05:27)
[2018-02-11] MEDS: *HR* Heparin 5,000 UNIT/ML VIAL SQ SCH ×2 (05:42→17:43)
[2018-02-11] MEDS: Ringers Solution, Lactated 1,000 ML IVC SCH ×2 (05:43→16:35)
[2018-02-11 05:53] LABS: Platelet Estimate Slight Decrease (Normal)
[2018-02-11 05:54] LABS: Polychromasia 1+ (Not Present)
--- NOTE | 2018-02-11 08:04 | Internal Med Progress Note ---
<Janel Yu - Last Filed: 02/11/18 13:56> Date of Encounter: 02/11/18 Time of Encounter: 07:45 - Assessment and plan (1) Acute pancreatitis Current Visit: No Status: Inactive Assessment and plan: Patient has acute pancreatitis demonstrated by CT abdomen and elevated lipase. She had sudden onset abdominal pain with nausea and vomiting. Liver ultrasound demonstrated cholelithiasis with no evidence of acute cholecystitis. No alcohol use. No history of pancreatitis. Lipid panel WNL, calcium. Lipase 342 (>1800) afebrile, tachycardic 102 WBC 14.6 (25.6) Ca 6.1 BUN 46 -patient reports abdominal pain has improved and is clinically improving. Abdominal exam unchanged from yesterday: soft, diffusely tender, bowel sounds present -MRCP demonstrated pleural effusions, ascites, anasarca. No CBD obstruction. -Gastroenterology recommends pain control and IV fluids since no CBD obstruction. -High risk due to Reynold criteria 7 -NPO, Zofran for nausea -hold fluids due to pleural effusions and hypoxia, give fluids if hypotensive -dilaudid for pain management -pulmonology consulted and recommendations are appreciated. Recommendations are lux cath for accurate I&O. incentive spirometry. Supplemental oxygen. -if patient worsens may transferred to [facility] -will closely monitor Qualifiers: Pancreatitis type: unspecified pancreatitis type Acute pancreatitis complication: no infection or necrosis Qualified Code(s): K85.90 - Acute pancreatitis without necrosis or infection, unspecified (2) Acute renal failure Current Visit: No Status: Acute Assessment and plan: Acute renal failure in setting of nausea, vomiting, dehydration. Most likely prerenal. Cr 1.68 (1.59) -lux cath for strict I&O -monitor Scr -avoid nephrotoxic agents -consult nephrology about treatment of ТАТЬЯНА, recommendations are appreciated Qualifiers: Acute renal failure type: unspecified Qualified Code(s): N17.9 - Acute kidney failure, unspecified (3) Leukocytosis Current Visit: No Status: Acute Assessment and plan: Patient has elevated WBC 14.6 (25.6), most likely secondary to acute pancreatitis and dehydration. Liver ultrasound demonstrated cholelithiasis without cholecystitis. -Patient was empirically treated with Cipro and Flagyl Day 3. Continue antibiotics -will continue to monitor Qualifiers: Leukocytosis type: leukemoid reaction Qualified Code(s): D72.823 - Leukemoid reaction (4) Hypocalcemia Current Visit: No Status: Acute Assessment and plan: Patient takes calcium supplements b.i.d. at home for hypocalcemia Calcium 6.1 improving -supplement calcium today and as needed -will continue to monitor (5) Hypertension Current Visit: No Status: Acute Qualifiers: Qualified Code(s): I10 - Essential (primary) hypertension (6) Rheumatoid arthritis Current Visit: No Status: Chronic Qualifiers: Rheumatoid arthritis location: unspecified site Rheumatoid factor presence : unspecified presence Qualified Code(s): M06.9 - Rheumatoid arthritis, unspecified (7) DVT prophylaxis Current Visit: No Status: Acute (8) Hypoxia Current Visit: No Status: Acute Assessment and plan: Likely secondary to fluid overload due to treatment with IVF for pancreatitis. But also in differential PE and ARDS. -SPO2 90% on 4L -patient denies chest pain, shortness of breath. -Decreased breath sounds bilaterally at bases. No lower extremity swelling. -Order CXR to evaluate for fluid overloaded. Consider if CXR normal then order chest CT and lower extremity Doppler's -Continue supplemental oxygen - Time Spent With Patient Total time spent is greater than 50% in coordination of care (as documented) at patient's floor/unit and/or counseling patient: - Subjective Interval history: 77-year-old female past medical history of COPD, RA, hypertension who presented as a transfer from [place] ED due to acute pancreatitis demonstrated by CT and elevated lipase. She presented initially complaining of sudden epigastric abdominal pain with nausea and vomiting. Upon my examination she is alert and oriented times 3 and appears uncomfortable but more comfortable than yesterday. She reports her pain has improved from yesterday. She is required supplemental oxygen due to hypoxia and IV fluids due to hypotension. She reports shortness of breath when exerting herself. She denies chest pain, nausea , vomiting, change in urination. - Constitutional Vitals: Temp Pulse Resp BP Pulse Ox 97.8 F 102 11 73/43 96 02/11/18 00:07 02/11/18 00:07 02/11/18 04:13 02/11/18 04:13 02/11/18 04:13 General appearance: Present: mild distress, A&O X 3, answers questions appropriately Exam: Gen.: Vitals noted. No acute distress. AAOx3 HEENT: oropharynx clear, Normocephalic, atraumatic Cardiac: RRR, no murmur, +S1/S2 Pulmonary: decreased breath sounds bilaterally, + bilateral wheezes and rales Abdomen: soft, tender, Bowel sounds noted, no guarding Back: Nontender throughout. ) Left lower quadrant tender MSK: ROM intact, no joint swelling noted Extremities: no BLE edema, nontender calf, no cyanosis or clubbing Neuro: A&Ox3, moves all extremities, no focal deficits Psych: Appropriate mood and behavior Internal Medicine: Result - Labs CBC & Chem 7: 02/11/18 12:00 02/11/18 12:00 Labs: Short CBC 02/11/18 Range/Units 04:48 WBC 14.6 H (4.3-11.1) K/mcL Hgb 9.9 L D (11.5-15.4) g/dL Hct 31.5 L (35.3-44.9) % Plt Count 113 L (140-400) K/mcL Neutrophils # 12.3 H (1.6-8.9) K/mcL BMP 02/11/18 04:48 Sodium 136 Potassium 4.9 Chloride 110 H Carbon Dioxide 20 L BUN 46 H Creatinine 1.68 H Glucose 99 Calcium 6.1 L Liver Function 02/10/18 Range/Units 09:55 Total Bilirubin 1.3 H (0.3-1.0) mg/dL Direct Bilirubin 0.8 H (0.0-0.2) mg/dL AST 46 H (13-39) Units/L ALT 51 (7-52) Units/L Alkaline Phosphatase 45 (34-104) Units/L Albumin 2.8 L (3.5-5.7) g/dL - ABG Interpretation ABG results: ABG ABG pH 7.25 pH Units (7.32-7.45) L 02/11/18 01:48 ABG pCO2 41 mmHg (35-45) 02/11/18 01:48 ABG pO2 124 mmHg (85-104) H 02/11/18 01:48 ABG O2 Saturation 98 % (95-98) 02/11/18 01:48 - Impressions Impressions Chest X-Ray 02/10/18 08:22 IMPRESSION: Small pleural effusions with associated airspace disease, atelectasis versus pneumonia. Findings are new from 02/08/2018. D/ / Clark Sabillon MD / Clark Sabillon MD Interpreting Provider: Clark Sabillon MD Abdomen MRI 02/10/18 09:41 IMPRESSION: 1. This evaluation is moderately limited due to motion, as well as artifact related to body habitus. 2. Pleural effusions, ascites and anasarca are identified. 3. Moderate mesenteric fat stranding around the pancreas. 4. No focal signal abnormality related to the pancreatic parenchyma ; however, this finding is considered limited in sensitivity. 5. Cholelithiasis 6. No obvious choledocholithiasis; however, MRCP images suffer from motion degradation. Dilation of the biliary tree noted with the common bile duct measuring up to 8 mm. Pancreatic duct is not dilated. D/ / Max Barnes / Max Barnes Interpreting Provider: Max Barnes Consult Discharge Plan - Plan Referrals: Chau Cadena MD [Primary Care Provider] - 02/19/18 9:00 am <Quincy Zheng - Last Filed: 02/11/18 17:10> Date of Encounter: 02/11/18 - Assessment and plan (1) Acute pancreatitis Current Visit: No Status: Inactive Qualifiers: Pancreatitis type: unspecified pancreatitis type Acute pancreatitis complication: no infection or necrosis Qualified Code(s): K85.90 - Acute pancreatitis without necrosis or infection, unspecified (2) Acute renal failure Current Visit: No Status: Acute Qualifiers: Acute renal failure type: unspecified Qualified Code(s): N17.9 - Acute kidney failure, unspecified (3) Leukocytosis Current Visit: No Status: Acute Qualifiers: Leukocytosis type: leukemoid reaction Qualified Code(s): D72.823 - Leukemoid reaction (4) Rheumatoid arthritis Current Visit: No Status: Chronic Qualifiers: Rheumatoid arthritis location: unspecified site Rheumatoid factor presence : unspecified presence Qualified Code(s): M06.9 - Rheumatoid arthritis, unspecified (5) DVT prophylaxis Current Visit: No Status: Acute (6) Hypertension Current Visit: No Status: Acute Qualifiers: Qualified Code(s): I10 - Essential (primary) hypertension (7) Hypocalcemia Current Visit: No Status: Acute (8) Hypoxia Current Visit: No Status: Acute - Time Spent With Patient Total time spent is greater than 50% in coordination of care (as documented) at patient's floor/unit and/or counseling patient: - Constitutional Vitals: Temp Pulse Resp BP Pulse Ox 98.8 F 106 24 120/58 94 02/11/18 15:50 02/11/18 15:50 02/11/18 16:25 02/11/18 15:50 02/11/18 16:25 Internal Medicine: Result - Labs CBC & Chem 7: 02/11/18 12:00 02/11/18 12:00 Labs: Short CBC 02/11/18 02/11/18 Range/Units 04:48 12:00 WBC 14.6 H 13.0 H (4.3-11.1) K/mcL Hgb 9.9 L D 9.9 L (11.5-15.4) g/dL Hct 31.5 L 31.1 L (35.3-44.9) % Plt Count 113 L 117 L (140-400) K/mcL Neutrophils # 12.3 H 10.9 H (1.6-8.9) K/mcL BMP 02/11/18 02/11/18 04:48 12:00 Sodium 136 138 Potassium 4.9 4.2 Chloride 110 H 109 H Carbon Dioxide 20 L 21 L BUN 46 H 46 H Creatinine 1.68 H 1.32 H Glucose 99 108 H Calcium 6.1 L 6.6 L Liver Function 02/11/18 02/11/18 Range/Units 04:48 12:00 Total Bilirubin 0.7 0.7 (0.3-1.0) mg/dL Direct Bilirubin 0.3 H (0.0-0.2) mg/dL AST 41 H 39 (13-39) Units/L ALT 38 38 (7-52) Units/L Alkaline Phosphatase 43 48 (34-104) Units/L Albumin 2.5 L 2.7 L (3.5-5.7) g/dL Urine 04/26/18 Range/Units 15:51 Urine Color Yellow (Yellow) Urine Clarity Clear (Clear) Urine pH 5.5 (5.0-8.0) pH Units Ur Specific [place] 1.024 (1.010-1.025) Urine Protein 30 H (Neg-Trace) mg/dL Urine Glucose (UA) Normal (Normal) mg/dL - ABG Interpretation ABG results: ABG ABG pH 7.31 pH Units (7.32-7.45) L 02/11/18 11:02 ABG pCO2 42 mmHg (35-45) 02/11/18 11:02 ABG pO2 62 mmHg (85-104) L 02/11/18 11:02 ABG O2 Saturation 89 % (95-98) L 02/11/18 11:02 - Impressions Impressions Echocardiogram 02/11/18 09:04 Impressions: Technically sub-optimal due to poor echocardiographic windows. LVEF 70%. Normal LV chamber size, wall thickness and function. Mild left ventricular diastolic dysfunction. Right ventricle was not well visualized. Function is grossly normal. No evidence of pulmonary hypertension. No significant valvular dysfunction. Left Ventricular Wall Motion: Rest Echo Findings All wall segments showed normal motion. Findings: Study Quality * Technically sub-optimal due to poor echocardiographic windows. ECG Findings * Sinus tachycardia. Left Ventricle * LVEF 70%. * Normal LV chamber size, wall thickness and function. * Mild left ventricular diastolic dysfunction. Right Ventricle * Right ventricle was not well visualized. Function is grossly normal. Left Atrium * Left atrium is not well visualized. Right Atrium * Right atrium is not well visualized. Interatrial Septum * Interatrial septum not well evaluated. Aortic Valve * Aortic valve not well visualized. * No aortic regurgitation. * No aortic stenosis. Mitral Valve * Mitral valve not well visualized. * No mitral regurgitation. * No mitral stenosis. Tricuspid Valve * Tricuspid valve not well visualized. * Trace tricuspid regurgitation. * No evidence of pulmonary hypertension. Pulmonic Valve * Pulmonic valve not well visualized. Aorta * Normally sized aortic root. Pericardium * The pericardium appears normal. IVC * Normal IVC dimensions and inspiratory collapse. Pulmonary Artery * Pulmonary artery not well visualized. - Attending Attestation I performed a history and physical examination of the patient and discussed his/ her management with the resident. I reviewed the residents note and agree with the documented findings and plan of care. Clinically improving. Had acidosis which repeat labs showing improvement after sodium bicarbinate. Hypotension improved. Discussed case with Pulm/Critical Care, if patient worsens will transfer to [facility].
[2018-02-11] MEDS ORDERED: Calcium Gluconate 2,000 MG in 0.9 % Sodium Chloride 100 ML IVPB ONE (08:14)
[2018-02-11 08:47] LABS: Albumin 2.5 g/dL (3.5-5.7); Albumin/Globulin Ratio 1.1 (1.1-2.2); Bilirubin,Direct 0.3 mg/dL (0.0-0.2); Bilirubin,Indirect 0.4 mg/dL (0.0-1.2); Bilirubin,Total 0.7 mg/dL (0.3-1.0); Globulin 2.3 g/dL (2.4-3.5); Total Protein 4.8 g/dL (6.4-8.9)
--- NOTE | 2018-02-11 09:32 | Pulmonology Progress Note ---
Date of Encounter: 02/11/18 Time of Encounter: 08:00 Assessment and Plan (1) Acute pancreatitis Current Visit: No Status: Acute Discussed with primary team regarding acute pancreatitis for this patient and since clinically she is feeling better and her oxygen needs is less will continue current treatment. Add Symbicort to the current treatment with history of smoking in the past. Gentle hydration and to Chow catheter will be indicated to have close monitoring her urine output. Also we have discussed a low threshold for transferring care to [facility] if her condition deteriorate. We will continue monitoring and she needs a follow-up labs today. Qualifiers: Pancreatitis type: unspecified pancreatitis type Acute pancreatitis complication: unspecified Qualified Code(s): K85.90 - Acute pancreatitis without necrosis or infection, unspecified (2) Atelectasis of both lungs Current Visit: No Status: Acute (3) Hypoxia Current Visit: No Status: Acute (4) Rheumatoid arthritis Current Visit: No Status: Chronic Qualifiers: Rheumatoid arthritis location: unspecified site Rheumatoid factor presence : unspecified presence Qualified Code(s): M06.9 - Rheumatoid arthritis, unspecified (5) Acute kidney injury Current Visit: No Status: Acute Subjective Principal diagnosis: Acute pancreatitis Interval history: Patient is feeling better this morning and her pain has improved and tolerating ice chips Objective PUL Vital signs: Last Vital Signs Temp 99.2 F 02/11/18 08:10 Pulse 108 02/11/18 08:10 Resp 23 02/11/18 08:10 BP 98/63 02/11/18 08:10 Pulse Ox 85 02/11/18 08:10 General appearance: no acute distress Eyes: nonicteric ENT: oropharynx dry Neck: supple Effort: mildly labored Auscultation: bilateral: diminished breath sounds Percussion: bilateral: dull Cardiovascular: regular rate and rhythm Gastrointestinal: soft, tender (However this has improved) Extremities: no cyanosis normal mental status, non-focal exam mood appropriate Results - Laboratory Findings CBC and BMP: 02/11/18 04:48 02/11/18 04:48 ABG ABG pH 7.25 pH Units (7.32-7.45) L 02/11/18 01:48 ABG pCO2 41 mmHg (35-45) 02/11/18 01:48 ABG pO2 124 mmHg (85-104) H 02/11/18 01:48 ABG O2 Saturation 98 % (95-98) 02/11/18 01:48 Abnormal lab findings: Abnormal lab results WBC 14.6 K/mcL (4.3-11.1) H 02/11/18 04:48 RBC 3.19 M/mcL (3.82-4.97) L 02/11/18 04:48 Hgb 9.9 g/dL (11.5-15.4) L D 02/11/18 04:48 Hct 31.5 % (35.3-44.9) L 02/11/18 04:48 MCHC 31.4 g/dL (31.6-35.5) L 02/11/18 04:48 RDW 17.6 % (11.5-14.5) H 02/11/18 04:48 Plt Count 113 K/mcL (140-400) L 02/11/18 04:48 Band Neutrophils % 6.0 % (0-4) H 02/10/18 05:18 Neutrophils # 12.3 K/mcL (1.6-8.9) H 02/11/18 04:48 Monocytes # 1.4 K/mcL (0.0-1.3) H 02/11/18 04:48 Nucleated RBCs/100 WBC 0.3 /100 WBC (0) H 02/11/18 04:48 Platelet Estimate Slight Decrease (Normal) L 02/11/18 04:48 Polychromasia 1+ (Not Present) A 02/11/18 04:48 Anisocytosis 1+ (Not Present) A 02/10/18 05:18 Macrocytosis Present (Not Present) A 02/10/18 05:18 ABG pH 7.25 pH Units (7.32-7.45) L 02/11/18 01:48 ABG pO2 124 mmHg (85-104) H 02/11/18 01:48 ABG HCO3 18 mEq/L (21-27) L 02/11/18 01:48 ABG Total CO2 19 mEq/L (20-26) L 02/11/18 01:48 ABG Base Excess -9 mEq/L (-2 to 3) L 02/11/18 01:48 VBG pH 7.17 pH Units (7.32-7.42) L* 02/11/18 05:07 VBG pCO2 53 mmHg (41-51) H 02/11/18 05:07 VBG pO2 80 mmHg (25-50) H 02/11/18 05:07 VBG HCO3 19 mEq/L (21-27) L 02/11/18 05:07 Chloride 110 mEq/L (98-107) H 02/11/18 04:48 Carbon Dioxide 20 mEq/L (23-29) L 02/11/18 04:48 BUN 46 mg/dL (8-23) H 02/11/18 04:48 Creatinine 1.68 mg/dL (0.60-1.20) H 02/11/18 04:48 Est GFR ( Amer) 36 (> 60) L 02/11/18 04:48 Est GFR (Non-Af Amer) 30 (> 60) L 02/11/18 04:48 BUN/Creatinine Ratio 27 (6-26) H 02/11/18 04:48 Calcium 6.1 mg/dL (8.6-10.3) L 02/11/18 04:48 Venous Ioniz Calcium 0.82 mmol/L (1.15-1.35) L 02/10/18 10:18 Magnesium 1.5 mg/dL (1.6-2.6) L 02/09/18 05:37 Direct Bilirubin 0.3 mg/dL (0.0-0.2) H 02/11/18 04:48 AST 41 Units/L (13-39) H 02/11/18 04:48 Serum Total Protein 4.8 g/dL (6.4-8.9) L 02/11/18 04:48 Albumin 2.5 g/dL (3.5-5.7) L 02/11/18 04:48 Globulin 2.3 g/dL (2.4-3.5) L 02/11/18 04:48 HDL Cholesterol 62 mg/dL (40-59) H 02/09/18 05:37 Lipase 342 Units/L (11-82) H 02/11/18 04:48 - Clinical Findings Intake & Output: Intake & Output 02/10/18 02/11/18 02/11/18 23:59 07:59 15:59 Intake Total 340 / 340 1200 / 1200 Output Total 200 / 200 1000 / 1000 Balance 140 / 140 1200 / 1200 -1000 / -1000 Consult Discharge Plan - Plan Referrals: Chau Cadena MD [Primary Care Provider] - 02/19/18 9:00 am
[2018-02-11] MEDS ORDERED: Perflutren Lipid Microsphere 1.3 ML in 0.9 % Sodium Chloride 8.7 ML IVP ONE (09:40)
[2018-02-11] MEDS: Budesonide/Formoterol 160/4.5 MDI IH SCH ×2 (10:57→23:50)
[2018-02-11 11:06] LABS: ABG Base Excess -5 mEq/L (-2 to 3); ABG HCO3 21 mEq/L (21-27); ABG Oxygen Saturation 89 % (95-98); ABG PCO2 42 mmHg (35-45); ABG PH 7.31 pH Units (7.32-7.45); ABG PO2 62 mmHg (85-104); ABG TCO2 22 mEq/L (20-26)
[2018-02-11 12:24] LABS: Hematocrit 31.1 % (35.3-44.9); Hemoglobin 9.9 g/dL (11.5-15.4); Immature Platelets 4.1 % (1.1-6.1); Mean Corpuscular HGB Conc 31.8 g/dL (31.6-35.5); Mean Corpuscular Hemoglobin 30.7 pg (28.0-33.3); Mean Corpuscular Volume 96.6 fL (83.0-100.0); Mean Platelet Volume 10.5 fL (9.4-12.4); Nucleated Red Blood Cells 0.2 /100 WBC (0); Platelet Count 117 K/mcL (140-400); Red Blood Count 3.22 M/mcL (3.82-4.97); Red Cell Distribution Width 17.3 % (11.5-14.5)
[2018-02-11 12:39] LABS: Albumin 2.7 g/dL (3.5-5.7); Albumin/Globulin Ratio 1.3 (1.1-2.2); Bilirubin,Total 0.7 mg/dL (0.3-1.0); Calcium 6.6 mg/dL (8.6-10.3); Globulin 2.1 g/dL (2.4-3.5); Potassium 4.2 mEq/L (3.5-5.1); Total Protein 4.8 g/dL (6.4-8.9)
[2018-02-11 12:41] LABS: Neutrophils # 10.9 K/mcL (1.6-8.9)
[2018-02-11 12:42] LABS: Platelet Estimate Slight Decrease (Normal)
[2018-02-11 12:45] LABS: Basophilic Stippling 2+ (Not Present)
--- NOTE | 2018-02-11 15:35 | Gastroenterology Progress Note ---
<Bianka Reed - Last Filed: 02/11/18 15:32> Date of Encounter: 02/11/18 Time of Encounter: 10:15 - Assessment and plan (1) Acute pancreatitis Current Visit: No Status: Acute Assessment and plan: MRCP did not show obstruction. Lipase is improved, pain is improved. Continue nPO and IVF. Monitor fluid volumes status. Qualifiers: Pancreatitis type: unspecified pancreatitis type Acute pancreatitis complication: unspecified Qualified Code(s): K85.90 - Acute pancreatitis without necrosis or infection, unspecified - Time Spent With Patient Total time spent is greater than 50% in coordination of care (as documented) at patient's floor/unit and/or counseling patient: - Subjective Interval history: 77 year old female with acute pancreatitis. MRCP did not show obstruction. WBC is improved to 14.6. She was moved to due to hypoxia and placed on bipap overnight. She states her nausea and abdominal pain are improved this morning. She denies fever or chills. - Constitutional Vitals: Temp Pulse Resp BP Pulse Ox 100.0 F H 111 16 116/56 92 02/11/18 11:28 02/11/18 11:28 02/11/18 11:09 02/11/18 11:28 02/11/18 11:28 Exam: CONSTITUTIONAL:~alert, no acute distress.~HEAD:~normocephalic.~EYES:~no jaundice.~NECK:~no obvious swelling.~HEART:~regular rate and rhythm, no murmurs. ~LUNGS:~bilateral fair air entry.~ABDOMEN:~ tender upper quadrants, obese, softly distended.~RECTAL EXAM:~Deferred.~EXTREMITIES:~no clubbing, cyanosis, 1+ ble edema.~SKIN:~pallor noted, no stigmata of chronic liver disease.~NEUROLOGIC: ~no obvious focal defect.~~~~ Results - Labs CBC & Chem 7: 02/11/18 12:00 02/11/18 12:00 Labs: Last Result Calcium 6.6 mg/dL (8.6-10.3) L 02/11/18 12:00 Triglycerides 101 mg/dL (< 150) 02/09/18 05:37 Entire Visit Hgb 9.9 g/dL (11.5-15.4) L 02/11/18 12:00 Hct 31.1 % (35.3-44.9) L 02/11/18 12:00 Total Bilirubin 0.7 mg/dL (0.3-1.0) 02/11/18 12:00 AST 39 Units/L (13-39) 02/11/18 12:00 ALT 38 Units/L (7-52) 02/11/18 12:00 Lipase 342 Units/L (11-82) H 02/11/18 04:48 - ABG ABG results: ABG ABG pH 7.31 pH Units (7.32-7.45) L 02/11/18 11:02 ABG pCO2 42 mmHg (35-45) 02/11/18 11:02 ABG pO2 62 mmHg (85-104) L 02/11/18 11:02 ABG O2 Saturation 89 % (95-98) L 02/11/18 11:02 - Impressions Impressions Echocardiogram 02/11/18 09:04 Impressions: Technically sub-optimal due to poor echocardiographic windows. LVEF 70%. Normal LV chamber size, wall thickness and function. Mild left ventricular diastolic dysfunction. Right ventricle was not well visualized. Function is grossly normal. No evidence of pulmonary hypertension. No significant valvular dysfunction. Left Ventricular Wall Motion: Rest Echo Findings All wall segments showed normal motion. Findings: Study Quality * Technically sub-optimal due to poor echocardiographic windows. ECG Findings * Sinus tachycardia. Left Ventricle * LVEF 70%. * Normal LV chamber size, wall thickness and function. * Mild left ventricular diastolic dysfunction. Right Ventricle * Right ventricle was not well visualized. Function is grossly normal. Left Atrium * Left atrium is not well visualized. Right Atrium * Right atrium is not well visualized. Interatrial Septum * Interatrial septum not well evaluated. Aortic Valve * Aortic valve not well visualized. * No aortic regurgitation. * No aortic stenosis. Mitral Valve * Mitral valve not well visualized. * No mitral regurgitation. * No mitral stenosis. Tricuspid Valve * Tricuspid valve not well visualized. * Trace tricuspid regurgitation. * No evidence of pulmonary hypertension. Pulmonic Valve * Pulmonic valve not well visualized. Aorta * Normally sized aortic root. Pericardium * The pericardium appears normal. IVC * Normal IVC dimensions and inspiratory collapse. Pulmonary Artery * Pulmonary artery not well visualized. Consult Discharge Plan - Plan Referrals: Chau Cadena MD [Primary Care Provider] - 02/19/18 9:00 am <Hina Bhatt - Last Filed: 02/11/18 18:43> Date of Encounter: 02/11/18 Time of Encounter: 18:00 - Time Spent With Patient Total time spent is greater than 50% in coordination of care (as documented) at patient's floor/unit and/or counseling patient: - Constitutional Vitals: Temp Pulse Resp BP Pulse Ox 98.8 F 106 24 120/58 94 02/11/18 15:50 02/11/18 15:50 02/11/18 16:25 02/11/18 15:50 02/11/18 16:25 Results - Labs CBC & Chem 7: 02/11/18 12:00 02/11/18 12:00 Labs: Last Result Calcium 6.6 mg/dL (8.6-10.3) L 02/11/18 12:00 Triglycerides 101 mg/dL (< 150) 02/09/18 05:37 Entire Visit Hgb 9.9 g/dL (11.5-15.4) L 02/11/18 12:00 Hct 31.1 % (35.3-44.9) L 02/11/18 12:00 Total Bilirubin 0.7 mg/dL (0.3-1.0) 02/11/18 12:00 AST 39 Units/L (13-39) 02/11/18 12:00 ALT 38 Units/L (7-52) 02/11/18 12:00 Lipase 342 Units/L (11-82) H 02/11/18 04:48 - ABG ABG results: ABG ABG pH 7.31 pH Units (7.32-7.45) L 02/11/18 11:02 ABG pCO2 42 mmHg (35-45) 02/11/18 11:02 ABG pO2 62 mmHg (85-104) L 02/11/18 11:02 ABG O2 Saturation 89 % (95-98) L 02/11/18 11:02 - Impressions Impressions Echocardiogram 02/11/18 09:04 Impressions: Technically sub-optimal due to poor echocardiographic windows. LVEF 70%. Normal LV chamber size, wall thickness and function. Mild left ventricular diastolic dysfunction. Right ventricle was not well visualized. Function is grossly normal. No evidence of pulmonary hypertension. No significant valvular dysfunction. Left Ventricular Wall Motion: Rest Echo Findings All wall segments showed normal motion. Findings: Study Quality * Technically sub-optimal due to poor echocardiographic windows. ECG Findings * Sinus tachycardia. Left Ventricle * LVEF 70%. * Normal LV chamber size, wall thickness and function. * Mild left ventricular diastolic dysfunction. Right Ventricle * Right ventricle was not well visualized. Function is grossly normal. Left Atrium * Left atrium is not well visualized. Right Atrium * Right atrium is not well visualized. Interatrial Septum * Interatrial septum not well evaluated. Aortic Valve * Aortic valve not well visualized. * No aortic regurgitation. * No aortic stenosis. Mitral Valve * Mitral valve not well visualized. * No mitral regurgitation. * No mitral stenosis. Tricuspid Valve * Tricuspid valve not well visualized. * Trace tricuspid regurgitation. * No evidence of pulmonary hypertension. Pulmonic Valve * Pulmonic valve not well visualized. Aorta * Normally sized aortic root. Pericardium * The pericardium appears normal. IVC * Normal IVC dimensions and inspiratory collapse. Pulmonary Artery * Pulmonary artery not well visualized. Retroperitoneum Ultrasound 02/11/18 17:30 IMPRESSION: Unremarkable ultrasound of the kidneys and urinary bladder before postvoid residual of 75 cc. D/ / Julito Gilbert MD / Julito Gilbert MD Interpreting Provider: Julito Gilbert MD - Attending Attestation I have personally performed a face to face evaluation on this patient. I have reviewed and agree with the care plan. History and Exam by me shows: Pt seen, still in respiratory distress but per patient her abdominal pain is better than yesterday. Patient with gallstone pancreatitis MRCP negative for any CBD obstruction LFTs improving white count is improving. Continue IV fluid nothing by mouth for now
--- NOTE | 2018-02-11 15:47 | Nephrology Consult Note ---
Date of Encounter: 02/11/18 Time of Encounter: 15:37 Assessment and Plan (1) Acute kidney injury Current Visit: No Status: Acute Due to recent IV contrast, home medications, and pancreatitis. Will order ultrasounds, urine levels, and CPK for workoup. Continue LR @ 75. Avoid nephrotoxins. (2) Acute pancreatitis Current Visit: No Status: Acute Per primary team. Qualifiers: Pancreatitis type: unspecified pancreatitis type Acute pancreatitis complication: unspecified Qualified Code(s): K85.90 - Acute pancreatitis without necrosis or infection, unspecified (3) Metabolic acidosis Current Visit: Yes Status: Acute Dilutional due to large amount of IV fluid. Anion gap is 8. Will monitor. History of Present Illness - Reason for Consult Consult date: 02/11/18 Acute Kidney Injury - History of Present Illness Mrs. Lugo is a 77 year old female admitted to hospital for pancreatitis. PMH : RA and HTN. Nephrology on board to manage worsening ТАТЬЯНА. Many factors contribute to ТАТЬЯНА including IV contrast, home medications, and pancreatitis. She has not seen any other nephrologists in the past, and never had any kidney issues. Denies any family history of kidney issues. Chronic use of NSAIDS. Admits to Nausea/Vomiting/Diarrhea. Is a former smoker, quit 2 years ago. Past Med Surg Social Fam HX - Past Medical History Medical history: COPD, hypertension, osteoporosis, RA Psychiatric history: no psych history - Past Surgical History Surgical History: cataract - Social History Smoking Status: Former smoker Smokeless Tobacco Status: No Alcohol use: none Drug use: none - Family History Mother History Unknown: Yes Medications and Allergies Calcium Carbonate/Vitamin D3 [Calcium 600 with Vit D Chew Tb] 1 tab PO BID 06/01 [History] Denosumab [Prolia (For Outpatient Infusion)] 60 mg IJ Q6M 06/01/17 [History] Lisinopril [Zestril] 10 mg PO DAILY 06/01/17 [History] Hydroxychloroquine [Plaquenuil] 300 mg PO [id number] 07/17/17 [History] Sulfasalazine [Azulfidine] 1,000 mg PO BID 07/17/17 [History] Folic Acid 1 mg PO DAILY #30 tablet 01/18/18 [Rx] Adalimumab [Humira] 40 mg SQ Q2W 02/08/18 [History] Ferrous Sulfate [Iron] 325 mg PO BID 02/08/18 [History] Hydroxychloroquine [Plaquenuil] 400 mg PO SUSA 02/09/18 [History] 3 Allergy/AdvReac Type Severity Reaction Status Date / Time alendronate sodium Allergy Vomiting Verified 11/10/17 13:26 Penicillins [PCN] Allergy Anaphylaxis Verified 11/10/17 13:26 Review of Systems Constitutional: anorexia, fever(s), no chills, no night sweats, no weakness Cardiovascular: dyspnea, no chest pain Respiratory: no cough Gastrointestinal: change in bowel habits, diarrhea Exam - Vital Signs Vital signs: Initial Vital Signs Temp Pulse Resp BP Pulse Ox 98.7 F 94 15 125/74 93 02/08/18 22:15 02/08/18 22:15 02/08/18 22:15 02/08/18 22:15 02/08/18 22:15 Vital Signs - Last 8 Hours Temp Pulse Resp BP Pulse Ox 02/11/18 11:28 100.0 F H 111 116/56 92 02/11/18 11:09 16 94 02/11/18 08:10 99.2 F 108 23 98/63 85 Intake and Output 02/10/18 02/11/18 02/11/18 23:59 07:59 15:59 Intake Total 340 / 340 1200 / 1200 120 / 120 Output Total 200 / 200 1500 / 1500 Balance 140 / 140 1200 / 1200 -1380 / -1380 Intake: IV Fluids 340 / 340 1200 / 1200 120 / 120 Lactated Ringers 1,000 ML @ 75 1000 / 1000 mls/hr IVC .[id number] [facility] Rx#: [id number] Calcium Gluconate 2,000 MG In 0 240 / 240 120 / 120 .9 % Sodium Chloride 100 ML @ 220 mls/hr IVPB ONCE ONE Rx#: [id number] Cipro Premix 200 MG/100 ML 200 100 / 100 mg In 100 ml @ 100 mls/hr IVPB Q12HR [facility] Rx#:[id number] Flagyl Premix 500 MG/100 ML 500 100 / 100 100 / 100 mg In 100 ml @ 100 mls/hr IVPB Q8HR [facility] Rx#:[id number] Oral 0 / 0 Output: Urine 200 / 200 75 / 75 Catheter 1425 / 1425 Urethral (Chow) 500 / 500 Other: Meal Dinner NPO Percent of Meal Consumed 0% Blood Glucose* 96 84 100 - General Appearance General appearance: well-developed, well-nourished, fatigue EENT: ATNC, hearing intact, vision intact Neck: supple Respiratory: wheezing Cardiology: no edema, normal S1, normal S2 Gastrointestinal: normoactive bowel sounds, no tenderness (with light palpation. ), distended Integumentary: no rash, warm and dry Neurologic: alert and oriented x3 Psychiatric: mood/affect appropriate Results - Lab Results 02/11/18 12:00 02/11/18 12:00 Most recent lab results ABG pH 7.31 pH Units (7.32-7.45) L 02/11/18 11:02 ABG pCO2 42 mmHg (35-45) 02/11/18 11:02 ABG pO2 62 mmHg (85-104) L 02/11/18 11:02 ABG HCO3 21 mEq/L (21-27) 02/11/18 11:02 ABG O2 Saturation 89 % (95-98) L 02/11/18 11:02 Calcium 6.6 mg/dL (8.6-10.3) L 02/11/18 12:00 Magnesium 1.5 mg/dL (1.6-2.6) L 02/09/18 05:37 Consult Discharge Plan - Plan Referrals: Chau Cadena MD [Primary Care Provider] - 02/19/18 9:00 am
[2018-02-11 16:07] LABS: Bilirubin,Urine Negative (Negative); Blood,Urine Small (Negative); Clarity,Urine Clear (Clear); Color,Urine Yellow (Yellow); Glucose,Urine (UA) Normal (Normal); Ketones,Urine 15 mg/dL (Negative); Leukocyte Esterase,Urine Trace (Negative); Nitrite,Urine Negative (Negative); PH,Urine 5.5 pH Units (5.0-8.0); Protein,Urine 30 mg/dL (Neg-Trace); Specific Gravity,Urine 1.024 (1.010-1.025); Urobilinogen,Urine Normal (Normal)
[2018-02-11 16:33] LABS: Creatinine,Urine 69 mg/dL; Sodium, Urine < 10.0 mEq/L
[2018-02-11 17:21] LABS: Squamous Epithelial Cell,Urine Few per lpf (None-Few)
[2018-02-11 17:22] LABS: Bacteria,Urine Few per hpf (None-Few); RBC,Urine 0-3 per hpf (0-3); WBC,Urine 0-3 per hpf (0-3)
[2018-02-11] MEDS: OXYCODONE Oral CONC 10 MG/0.5 ML ORAL.SYG SL PRN (18:42)
[2018-02-12] MEDS: Levalbuterol Neb 1.25 MG/3 ML IH SCH ×4 (04:31→23:08)
[2018-02-12 04:46] LABS: Basophils % 0.2 %; Hematocrit 31.3 % (35.3-44.9); Hemoglobin 9.8 g/dL (11.5-15.4); Immature Granulocytes % 0.7 % (0-4); Lymphocytes # 0.6 K/mcL (0.6-4.6); Lymphocytes % 4.4 %; Mean Corpuscular HGB Conc 31.3 g/dL (31.6-35.5); Mean Corpuscular Hemoglobin 30.3 pg (28.0-33.3); Mean Corpuscular Volume 96.9 fL (83.0-100.0); Mean Platelet Volume 10.5 fL (9.4-12.4); Monocytes # 1.2 K/mcL (0.0-1.3); Monocytes % 9.7 %; Neutrophils # 10.9 K/mcL (1.6-8.9); Nucleated Red Blood Cells 0.2 /100 WBC (0); Platelet Count 118 K/mcL (140-400); Red Blood Count 3.23 M/mcL (3.82-4.97); Red Cell Distribution Width 17.2 % (11.5-14.5)
[2018-02-12 05:02] LABS: BUN/Creatinine Ratio 42 (6-26); Blood Urea Nitrogen 34 mg/dL (8-23); Calcium 6.2 mg/dL (8.6-10.3); Carbon Dioxide 21 mEq/L (23-29); Chloride 109 mEq/L (98-107); Glucose 97 mg/dL (70-105); Lipase 84 Units/L (11-82); Osmolality,Calculated 294 (280-300); Potassium 4.3 mEq/L (3.5-5.1); Sodium 138 mEq/L (136-145); eGFR For African Americans > 60 (> 60); eGFR For Non-African Americans > 60 (> 60)
[2018-02-12 05:56] LABS: Anisocytosis 1+ (Not Present)
[2018-02-12 05:58] LABS: Smudge Cells Present (Not Present)
[2018-02-12 05:59] LABS: Platelet Estimate Slight Decrease (Normal)
[2018-02-12] MEDS: *HR* Heparin 5,000 UNIT/ML VIAL SQ SCH ×2 (06:52→17:48)
[2018-02-12] MEDS: Ringers Solution, Lactated 1,000 ML IVC SCH (06:52)
[2018-02-12 07:02] LABS: ANA IgG by ELISA NONE DETECTED (None Detected)
[2018-02-12 07:21] LABS: Immunoglobulin G Subclass 1 306 mg/dL (240-1118); Immunoglobulin G Subclass 2 142 mg/dL (124-549); Immunoglobulin G Subclass 3 36 mg/dL (21-134); Immunoglobulin G Subclass 4 56 mg/dL (1-123)
[2018-02-12] MEDS ORDERED: Calcium Gluconate 2,000 MG in 0.9 % Sodium Chloride 100 ML IVPB ONE ×2 (07:33→13:31)
[2018-02-12] MEDS ORDERED: Furosemide 20 MG/2 ML VIAL IVP ONE (07:44)
[2018-02-12] MEDS ORDERED: Calcium Gluconate 2,000 MG in D5% in Water 100 ML IVPB ONE (07:45)
[2018-02-12] MEDS: MetroNIDAZOLE 500 MG/100 ML 500 MG/100 ML BAG IVPB SCH ×2 (07:46→16:20)
[2018-02-12] MEDS ORDERED: Levalbuterol Neb 1.25 MG/3 ML IH PRN (07:59)
[2018-02-12] MEDS ORDERED: Levalbuterol Neb 1.25 MG/3 ML ONE (08:04)
[2018-02-12] MEDS ORDERED: *HR* HYDROcodone/Acet 5/325 mg TABLET PO PRN (08:59)
--- NOTE | 2018-02-12 09:00 | Internal Med Progress Note ---
Date of Encounter: 02/12/18 Time of Encounter: 08:35 - Assessment and plan (1) Acute pancreatitis Current Visit: No Status: Inactive Assessment and plan: Patient has acute pancreatitis demonstrated by CT abdomen and elevated lipase. She had sudden onset abdominal pain with nausea and vomiting. Liver ultrasound demonstrated cholelithiasis with no evidence of acute cholecystitis. No alcohol use. No history of pancreatitis. Lipid panel WNL, calcium. Lipase 84 (>1800) afebrile, tachycardic 105 WBC 12.8 (25.6) Ca 6.1 BUN 46 -MRCP demonstrated pleural effusions, ascites, anasarca. No CBD obstruction. -Gastroenterology recommends pain control and IV fluids since no CBD obstruction. Also recommend surgery consultation for possible cholecystectomy once stable. -High risk due to [place] criteria 7 -patient is clinically improving. She reports abdominal pain has improved and has not required pain medication. Abdominal exam is soft, minimally tender, bowel sounds present -Gastroenterology started clear liquid diet - Zofran for nausea -will consult surgery for possible cholecystectomy once patient is stable -hold fluids due to pleural effusions and hypoxia, give fluids if hypotensive -de-escalate pain medication since she is no longer in acute severe pain, [place] and/or oxycodone for pain -pulmonology consulted and recommendations are appreciated. Recommendations are lux cath for accurate I&O. incentive spirometry. Supplemental oxygen. -if patient worsens may transferred to [facility] -will closely monitor Qualifiers: Pancreatitis type: unspecified pancreatitis type Acute pancreatitis complication: no infection or necrosis Qualified Code(s): K85.90 - Acute pancreatitis without necrosis or infection, unspecified (2) Acute renal failure Current Visit: No Status: Acute Assessment and plan: Acute renal failure in setting of nausea, vomiting, dehydration. Also secondary to recent CT scan with contrast. Most likely prerenal. Cr 0.81 (1.59) improving I/O: 4860/ 6100. Balance of 2360 renal ultrasound demonstrating normal kidneys and bladder -lux cath for strict I&O -monitor Scr -avoid nephrotoxic agents -consult nephrology about treatment of ТАТЬЯНА, recommendations are appreciated. Nephrology recommends Qualifiers: Acute renal failure type: unspecified Qualified Code(s): N17.9 - Acute kidney failure, unspecified (3) Hypoxia Current Visit: No Status: Acute Assessment and plan: Improving. Likely secondary to fluid overload due to treatment with IVF for pancreatitis. But also in differential PE and ARDS. CXR 02/10/2018: small pleural effusions with associated airspace disease indicating atelectasis vs pneumonia -SPO2 97% on 4L -patient reports shortness of breath. -Decreased breath sounds bilaterally and rales at bases. -Continue supplemental oxygen (4) Leukocytosis Current Visit: No Status: Acute Assessment and plan: Improving WBC 12.8 (25.6), most likely secondary to acute pancreatitis and dehydration. Liver ultrasound demonstrated cholelithiasis without cholecystitis. -Patient was empirically treated with Cipro and Flagyl Day 3. Continue antibiotics -will continue to monitor Qualifiers: Leukocytosis type: leukemoid reaction Qualified Code(s): D72.823 - Leukemoid reaction (5) Hypocalcemia Current Visit: No Status: Acute Assessment and plan: Patient takes calcium supplements b.i.d. at home for hypocalcemia Calcium 6.2 improving -supplement calcium today and as needed -will continue to monitor (6) Hypertension Current Visit: No Status: Acute Assessment and plan: History of hypertension controlled with lisinopril. blood pressure stable will hold home medications due to variable blood pressure Qualifiers: Qualified Code(s): I10 - Essential (primary) hypertension (7) Rheumatoid arthritis Current Visit: No Status: Chronic Assessment and plan: Continue follow-up as outpatient -holding home medications Qualifiers: Rheumatoid arthritis location: unspecified site Rheumatoid factor presence : unspecified presence Qualified Code(s): M06.9 - Rheumatoid arthritis, unspecified (8) DVT prophylaxis Current Visit: No Status: Acute Assessment and plan: Heparin subcutaneously - Time Spent With Patient Total time spent is greater than 50% in coordination of care (as documented) at patient's floor/unit and/or counseling patient: - Subjective Interval history: 77-year-old female past medical history of COPD, RA, hypertension who presented as a transfer from [place] [facility] due to acute pancreatitis demonstrated by CT and elevated lipase. She presented initially complaining of sudden epigastric abdominal pain with nausea and vomiting. Upon my examination she is alert and oriented times 3 and appears comfortable in no acute distress. She reports her pain has improved markedly in there is only minimal tenderness. She still requires supplemental oxygen. She has shortness of breath. She denies chest pain, nausea, vomiting, change in urination. She is having bowel movements. - Constitutional Vitals: Temp Pulse Resp BP Pulse Ox 98.3 F 112 18 117/67 94 02/12/18 07:12 02/12/18 07:12 02/12/18 07:12 02/12/18 07:12 02/12/18 07:12 General appearance: Present: mild distress, A&O X 3, answers questions appropriately Exam: Gen.: Vitals noted. No acute distress. AAOx3 HEENT: oropharynx clear, Normocephalic, atraumatic Neck: Supple. No adenopathy. Cardiac: RRR, no murmur, +S1/S2 Pulmonary: decreased breath sounds bilaterally, + rales and wheezing, no rhonchi , equal chest expansion Abdomen: soft, minimal tender epigastric, Bowel sounds noted, no guarding MSK: no joint swelling noted Extremities: +1 BLE pitting edema, nontender calf, no cyanosis or clubbing Neuro: A&Ox3, moves all extremities, no focal deficits Psych: Appropriate mood and behavior Internal Medicine: Result - Labs CBC & Chem 7: 02/12/18 04:20 02/12/18 04:20 Labs: Short CBC 02/11/18 02/12/18 Range/Units 12:00 04:20 WBC 13.0 H 12.8 H (4.3-11.1) K/mcL Hgb 9.9 L 9.8 L (11.5-15.4) g/dL Hct 31.1 L 31.3 L (35.3-44.9) % Plt Count 117 L 118 L (140-400) K/mcL Neutrophils # 10.9 H 10.9 H (1.6-8.9) K/mcL BMP 02/11/18 02/12/18 12:00 04:20 Sodium 138 138 Potassium 4.2 4.3 Chloride 109 H 109 H Carbon Dioxide 21 L 21 L BUN 46 H 34 H Creatinine 1.32 H 0.81 Glucose 108 H 97 Calcium 6.6 L 6.2 L Liver Function 02/11/18 Range/Units 12:00 Total Bilirubin 0.7 (0.3-1.0) mg/dL AST 39 (13-39) Units/L ALT 38 (7-52) Units/L Alkaline Phosphatase 48 (34-104) Units/L Albumin 2.7 L (3.5-5.7) g/dL Urine 02/11/18 Range/Units 15:51 Urine Color Yellow (Yellow) Urine Clarity Clear (Clear) Urine pH 5.5 (5.0-8.0) pH Units Ur Specific [place] 1.024 (1.010-1.025) Urine Protein 30 H (Neg-Trace) mg/dL Urine Glucose (UA) Normal (Normal) mg/dL - ABG Interpretation ABG results: ABG ABG pH 7.31 pH Units (7.32-7.45) L 02/11/18 11:02 ABG pCO2 42 mmHg (35-45) 02/11/18 11:02 ABG pO2 62 mmHg (85-104) L 02/11/18 11:02 ABG O2 Saturation 89 % (95-98) L 02/11/18 11:02 - Impressions Impressions Echocardiogram 02/11/18 09:04 Impressions: Technically sub-optimal due to poor echocardiographic windows. LVEF 70%. Normal LV chamber size, wall thickness and function. Mild left ventricular diastolic dysfunction. Right ventricle was not well visualized. Function is grossly normal. No evidence of pulmonary hypertension. No significant valvular dysfunction. Left Ventricular Wall Motion: Rest Echo Findings All wall segments showed normal motion. Findings: Study Quality * Technically sub-optimal due to poor echocardiographic windows. ECG Findings * Sinus tachycardia. Left Ventricle * LVEF 70%. * Normal LV chamber size, wall thickness and function. * Mild left ventricular diastolic dysfunction. Right Ventricle * Right ventricle was not well visualized. Function is grossly normal. Left Atrium * Left atrium is not well visualized. Right Atrium * Right atrium is not well visualized. Interatrial Septum * Interatrial septum not well evaluated. Aortic Valve * Aortic valve not well visualized. * No aortic regurgitation. * No aortic stenosis. Mitral Valve * Mitral valve not well visualized. * No mitral regurgitation. * No mitral stenosis. Tricuspid Valve * Tricuspid valve not well visualized. * Trace tricuspid regurgitation. * No evidence of pulmonary hypertension. Pulmonic Valve * Pulmonic valve not well visualized. Aorta * Normally sized aortic root. Pericardium * The pericardium appears normal. IVC * Normal IVC dimensions and inspiratory collapse. Pulmonary Artery * Pulmonary artery not well visualized. Retroperitoneum Ultrasound 02/11/18 17:30 IMPRESSION: Unremarkable ultrasound of the kidneys and urinary bladder before postvoid residual of 75 cc. D/ / Julito Gilbert MD / Julito Gilbert MD Interpreting Provider: Julito Gilbert MD Consult Discharge Plan - Plan Referrals: Chau Cadena MD [Primary Care Provider] - 02/19/18 9:00 am
[2018-02-12] MEDS ORDERED: Ringers Solution, Lactated 1,000 ML IVC SCH (09:15)
--- NOTE | 2018-02-12 09:46 | Pulmonology Progress Note ---
Date of Encounter: 02/12/18 Time of Encounter: 07:55 Assessment and Plan (1) Acute pancreatitis Current Visit: No Status: Acute Discussed with primary team regarding acute pancreatitis for this patient and since clinically she is feeling better and her oxygen needs is less will continue current treatment. Add Symbicort to the current treatment with history of smoking in the past. Gentle hydration and to Chow catheter will be indicated to have close monitoring her urine output. Also we have discussed a low threshold for transferring care to [facility] if her condition deteriorate. We will continue monitoring and she needs a follow-up labs today. 02/12 the this seems to be stable Qualifiers: Pancreatitis type: unspecified pancreatitis type Acute pancreatitis complication: unspecified Qualified Code(s): K85.90 - Acute pancreatitis without necrosis or infection, unspecified (2) Atelectasis of both lungs Current Visit: No Status: Acute Patient is doing her best with incentive spirometry and encouraged her to continue (3) Hypoxia Current Visit: No Status: Acute Noninvasive ventilation and there is evidence of bronchospasm with wheezing and at when necessary bronchodilators. I suspect also there is volume overload from previous fluid administration. A trial of gentle diuresis and holding IV fluid for now. (4) Rheumatoid arthritis Current Visit: No Status: Chronic Qualifiers: Rheumatoid arthritis location: unspecified site Rheumatoid factor presence : unspecified presence Qualified Code(s): M06.9 - Rheumatoid arthritis, unspecified (5) Acute kidney injury Current Visit: No Status: Acute Subjective Principal diagnosis: Acute pancreatitis Interval history: Patient was having shortness of breath needed basis ventilation, however she is feeling slightly better now Objective PUL Vital signs: Last Vital Signs Temp 98.3 F 02/12/18 07:12 Pulse 112 02/12/18 07:12 Resp 20 02/12/18 08:06 BP 117/67 02/12/18 08:06 Pulse Ox 89 02/12/18 08:06 General appearance: appears uncomfortable Eyes: nonicteric ENT: oropharynx dry Neck: supple Effort: mildly labored Auscultation: bilateral: wheezes, rales Percussion: bilateral: not dull Cardiovascular: regular rate and rhythm Gastrointestinal: normoactive bowel sounds, non-distended Extremities: no cyanosis, edema normal mental status, non-focal exam mood appropriate Results - Laboratory Findings CBC and BMP: 02/12/18 04:20 02/12/18 04:20 ABG ABG pH 7.31 pH Units (7.32-7.45) L 02/11/18 11:02 ABG pCO2 42 mmHg (35-45) 02/11/18 11:02 ABG pO2 62 mmHg (85-104) L 02/11/18 11:02 ABG O2 Saturation 89 % (95-98) L 02/11/18 11:02 Abnormal lab findings: Abnormal lab results WBC 12.8 K/mcL (4.3-11.1) H 02/12/18 04:20 RBC 3.23 M/mcL (3.82-4.97) L 02/12/18 04:20 Hgb 9.8 g/dL (11.5-15.4) L 02/12/18 04:20 Hct 31.3 % (35.3-44.9) L 02/12/18 04:20 MCHC 31.3 g/dL (31.6-35.5) L 02/12/18 04:20 RDW 17.2 % (11.5-14.5) H 02/12/18 04:20 Plt Count 118 K/mcL (140-400) L 02/12/18 04:20 Neutrophils # 10.9 K/mcL (1.6-8.9) H 02/12/18 04:20 Nucleated RBCs/100 WBC 0.2 /100 WBC (0) H 02/12/18 04:20 Smudge Cells Present (Not Present) A 02/12/18 04:20 Platelet Estimate Slight Decrease (Normal) L 02/12/18 04:20 Polychromasia 1+ (Not Present) A 02/11/18 04:48 Basophilic Stippling 2+ (Not Present) A 02/11/18 12:00 Anisocytosis 1+ (Not Present) A 02/12/18 04:20 Macrocytosis Present (Not Present) A 02/10/18 05:18 ABG pH 7.31 pH Units (7.32-7.45) L 02/11/18 11:02 ABG pO2 62 mmHg (85-104) L 02/11/18 11:02 ABG O2 Saturation 89 % (95-98) L 02/11/18 11:02 ABG Base Excess -5 mEq/L (-2 to 3) L 02/11/18 11:02 VBG pH 7.17 pH Units (7.32-7.42) L* 02/11/18 05:07 VBG pCO2 53 mmHg (41-51) H 02/11/18 05:07 VBG pO2 80 mmHg (25-50) H 02/11/18 05:07 VBG HCO3 19 mEq/L (21-27) L 02/11/18 05:07 Chloride 109 mEq/L (98-107) H 02/12/18 04:20 Carbon Dioxide 21 mEq/L (23-29) L 02/12/18 04:20 BUN 34 mg/dL (8-23) H 02/12/18 04:20 BUN/Creatinine Ratio 42 (6-26) H 02/12/18 04:20 Calcium 6.2 mg/dL (8.6-10.3) L 02/12/18 04:20 Venous Ioniz Calcium 0.82 mmol/L (1.15-1.35) L 02/10/18 10:18 Magnesium 1.5 mg/dL (1.6-2.6) L 02/09/18 05:37 Direct Bilirubin 0.3 mg/dL (0.0-0.2) H 02/11/18 04:48 Creatine Kinase 1305 Units/L (30-223) H 02/11/18 16:30 Serum Total Protein 4.8 g/dL (6.4-8.9) L 02/11/18 12:00 Albumin 2.7 g/dL (3.5-5.7) L 02/11/18 12:00 Globulin 2.1 g/dL (2.4-3.5) L 02/11/18 12:00 HDL Cholesterol 62 mg/dL (40-59) H 02/09/18 05:37 Lipase 84 Units/L (11-82) H 02/12/18 04:20 Urine Protein 30 mg/dL (Neg-Trace) H 02/11/18 15:51 Urine Ketones 15 mg/dL (Negative) H 02/11/18 15:51 Urine Blood Small (Negative) H 02/11/18 15:51 Ur Leukocyte Esterase Trace (Negative) H 02/11/18 15:51 Ur Culture Indicated? YES (NO) A 02/11/18 15:51 - Clinical Findings Intake & Output: Intake & Output 02/11/18 02/12/18 02/12/18 23:59 07:59 15:59 Intake Total 1100 / 1100 1250 / 1250 Output Total 850 / 850 600 / 600 200 / 200 Balance 250 / 250 650 / 650 -200 / -200 Consult Discharge Plan - Plan Referrals: Chau Cadena MD [Primary Care Provider] - 02/19/18 9:00 am
[2018-02-12] MEDS: Budesonide/Formoterol 160/4.5 MDI IH SCH ×2 (10:29→23:08)
--- NOTE | 2018-02-12 10:46 | Gastroenterology Progress Note ---
<Bianka Reed - Last Filed: 02/12/18 10:43> Date of Encounter: 02/12/18 Time of Encounter: 09:10 - Assessment and plan (1) Acute pancreatitis Current Visit: No Status: Acute Assessment and plan: MRCP did not show obstruction. Pain and nausea are improved. Repeat LFTs. iVFs stopped due to increased shortness of breath. Will attempt clear liquid diet, advance slowly as tolerated. Would recommend surgical consult for possible cholecystectomy once pt is stable. Qualifiers: Pancreatitis type: unspecified pancreatitis type Acute pancreatitis complication: unspecified Qualified Code(s): K85.90 - Acute pancreatitis without necrosis or infection, unspecified - Time Spent With Patient Total time spent is greater than 50% in coordination of care (as documented) at patient's floor/unit and/or counseling patient: - Subjective Interval history: Pt is awake in bed. She has some increased dyspnea this morning. IVF have been stopped and she has received lasix. She states abdominal pain is improved. She denies nausea or vomiting. - Constitutional Vitals: Temp Pulse Resp BP Pulse Ox 98.3 F 112 20 117/67 96 02/12/18 07:12 02/12/18 07:12 02/12/18 10:33 02/12/18 08:06 02/12/18 10:33 Exam: CONSTITUTIONAL:~alert, no acute distress.~HEAD:~normocephalic.~EYES:~no jaundice.~NECK:~no obvious swelling.~HEART:~regular rate and rhythm, no murmurs. ~LUNGS:~bilateral fair air entry, wheezes noted bilaterally, accessory muscle use.~ABDOMEN:~softly distended, tender to upper quadrants, no masses pulpable, no organomegaly.~RECTAL EXAM:~Deferred.~EXTREMITIES:~no clubbing, cyanosis, 1+ blE edema.~SKIN:~no stigmata of chronic liver disease.~NEUROLOGIC:~no obvious focal defect.~~~~ Results - Labs CBC & Chem 7: 02/12/18 04:20 02/12/18 04:20 Labs: Last Result Calcium 6.2 mg/dL (8.6-10.3) L 02/12/18 04:20 Triglycerides 101 mg/dL (< 150) 02/09/18 05:37 Entire Visit Hgb 9.8 g/dL (11.5-15.4) L 02/12/18 04:20 Hct 31.3 % (35.3-44.9) L 02/12/18 04:20 Total Bilirubin 0.7 mg/dL (0.3-1.0) 02/11/18 12:00 AST 39 Units/L (13-39) 02/11/18 12:00 ALT 38 Units/L (7-52) 02/11/18 12:00 Lipase 84 Units/L (11-82) H 02/12/18 04:20 - ABG ABG results: ABG ABG pH 7.31 pH Units (7.32-7.45) L 02/11/18 11:02 ABG pCO2 42 mmHg (35-45) 02/11/18 11:02 ABG pO2 62 mmHg (85-104) L 02/11/18 11:02 ABG O2 Saturation 89 % (95-98) L 02/11/18 11:02 - Impressions Impressions Echocardiogram 02/11/18 09:04 Impressions: Technically sub-optimal due to poor echocardiographic windows. LVEF 70%. Normal LV chamber size, wall thickness and function. Mild left ventricular diastolic dysfunction. Right ventricle was not well visualized. Function is grossly normal. No evidence of pulmonary hypertension. No significant valvular dysfunction. Left Ventricular Wall Motion: Rest Echo Findings All wall segments showed normal motion. Findings: Study Quality * Technically sub-optimal due to poor echocardiographic windows. ECG Findings * Sinus tachycardia. Left Ventricle * LVEF 70%. * Normal LV chamber size, wall thickness and function. * Mild left ventricular diastolic dysfunction. Right Ventricle * Right ventricle was not well visualized. Function is grossly normal. Left Atrium * Left atrium is not well visualized. Right Atrium * Right atrium is not well visualized. Interatrial Septum * Interatrial septum not well evaluated. Aortic Valve * Aortic valve not well visualized. * No aortic regurgitation. * No aortic stenosis. Mitral Valve * Mitral valve not well visualized. * No mitral regurgitation. * No mitral stenosis. Tricuspid Valve * Tricuspid valve not well visualized. * Trace tricuspid regurgitation. * No evidence of pulmonary hypertension. Pulmonic Valve * Pulmonic valve not well visualized. Aorta * Normally sized aortic root. Pericardium * The pericardium appears normal. IVC * Normal IVC dimensions and inspiratory collapse. Pulmonary Artery * Pulmonary artery not well visualized. Retroperitoneum Ultrasound 02/11/18 17:30 IMPRESSION: Unremarkable ultrasound of the kidneys and urinary bladder before postvoid residual of 75 cc. D/ / Julito Gilbert MD / Julito Gilbert MD Interpreting Provider: Julito Gilbert MD Consult Discharge Plan - Plan Referrals: Chau Cadena MD [Primary Care Provider] - 02/19/18 9:00 am <ChuyadrianHina - Last Filed: 02/12/18 13:11> Date of Encounter: 02/12/18 Time of Encounter: 09:00 - Time Spent With Patient Total time spent is greater than 50% in coordination of care (as documented) at patient's floor/unit and/or counseling patient: - Constitutional Vitals: Temp Pulse Resp BP Pulse Ox 98.3 F 105 18 134/76 97 02/12/18 11:16 02/12/18 11:16 02/12/18 11:16 02/12/18 11:16 02/12/18 11:16 Results - Labs CBC & Chem 7: 02/12/18 04:20 02/12/18 04:20 Labs: Last Result Calcium 6.2 mg/dL (8.6-10.3) L 02/12/18 04:20 Triglycerides 101 mg/dL (< 150) 02/09/18 05:37 Entire Visit Hgb 9.8 g/dL (11.5-15.4) L 02/12/18 04:20 Hct 31.3 % (35.3-44.9) L 02/12/18 04:20 Total Bilirubin 0.5 mg/dL (0.3-1.0) 02/12/18 04:20 AST 33 Units/L (13-39) 02/12/18 04:20 ALT 33 Units/L (7-52) 02/12/18 04:20 Lipase 84 Units/L (11-82) H 02/12/18 04:20 - ABG ABG results: ABG ABG pH 7.31 pH Units (7.32-7.45) L 02/11/18 11:02 ABG pCO2 42 mmHg (35-45) 02/11/18 11:02 ABG pO2 62 mmHg (85-104) L 02/11/18 11:02 ABG O2 Saturation 89 % (95-98) L 02/11/18 11:02 - Impressions Impressions Echocardiogram 02/11/18 09:04 Impressions: Technically sub-optimal due to poor echocardiographic windows. LVEF 70%. Normal LV chamber size, wall thickness and function. Mild left ventricular diastolic dysfunction. Right ventricle was not well visualized. Function is grossly normal. No evidence of pulmonary hypertension. No significant valvular dysfunction. Left Ventricular Wall Motion: Rest Echo Findings All wall segments showed normal motion. Findings: Study Quality * Technically sub-optimal due to poor echocardiographic windows. ECG Findings * Sinus tachycardia. Left Ventricle * LVEF 70%. * Normal LV chamber size, wall thickness and function. * Mild left ventricular diastolic dysfunction. Right Ventricle * Right ventricle was not well visualized. Function is grossly normal. Left Atrium * Left atrium is not well visualized. Right Atrium * Right atrium is not well visualized. Interatrial Septum * Interatrial septum not well evaluated. Aortic Valve * Aortic valve not well visualized. * No aortic regurgitation. * No aortic stenosis. Mitral Valve * Mitral valve not well visualized. * No mitral regurgitation. * No mitral stenosis. Tricuspid Valve * Tricuspid valve not well visualized. * Trace tricuspid regurgitation. * No evidence of pulmonary hypertension. Pulmonic Valve * Pulmonic valve not well visualized. Aorta * Normally sized aortic root. Pericardium * The pericardium appears normal. IVC * Normal IVC dimensions and inspiratory collapse. Pulmonary Artery * Pulmonary artery not well visualized. Retroperitoneum Ultrasound 02/11/18 17:30 IMPRESSION: Unremarkable ultrasound of the kidneys and urinary bladder before postvoid residual of 75 cc. D/ / Julito Gilbert MD / Julito Gilbert MD Interpreting Provider: Julito Gilbert MD - Attending Attestation I have personally performed a face to face evaluation on this patient. I have reviewed and agree with the care plan. History and Exam by me shows: Patient seen at the bedside. Abdominal pain is better. Breathing is also better today. Patient with gallstone pancreatitis. Recommendation: Gentle hydration. Will start clear. Patient will need her gallbladder removed after being stable clinically and respiratory anna
[2018-02-12 11:14] LABS: Alanine Aminotransferase 33 Units/L (7-52); Albumin 2.8 g/dL (3.5-5.7); Albumin/Globulin Ratio 1.3 (1.1-2.2); Alkaline Phosphatase 49 Units/L (34-104); Aspartate Amino Transferase 33 Units/L (13-39); Bilirubin,Direct 0.2 mg/dL (0.0-0.2); Bilirubin,Indirect 0.3 mg/dL (0.0-1.2); Bilirubin,Total 0.5 mg/dL (0.3-1.0); Globulin 2.2 g/dL (2.4-3.5)
--- NOTE | 2018-02-12 14:23 | Nephrology Progress Note ---
Date of Encounter: 02/12/18 Time of Encounter: 14:21 - Assessment and Plan (1) Acute kidney injury Current Visit: No Status: Acute Patient with acute kidney injury this injury is secondary to dehydration from pancreatitis. Her renal functions returned to normal. I will sign off. Please feel free to reconsult if renal function worsens or if there are any other concerns. Subjective Principal diagnosis: Acute pancreatitis Interval history: Patient seen. Family is at her bedside. She reports that she is feeling better. Objective - Vital Signs Vital signs: Vital Signs Temp Pulse Resp BP Pulse Ox 02/12/18 11:16 98.3 F 105 18 134/76 97 02/12/18 10:33 20 96 02/12/18 08:06 20 117/67 89 02/12/18 07:12 98.3 F 112 18 117/67 94 02/12/18 05:05 26 125/59 94 02/12/18 04:31 20 93 02/12/18 03:33 98.4 F 108 19 125/59 92 02/12/18 03:30 97 02/11/18 23:30 97 02/11/18 22:34 97.9 F 101 16 116/52 93 02/11/18 20:37 98.3 F 111 16 112/57 95 02/11/18 19:50 104 02/11/18 16:25 24 94 02/11/18 15:50 98.8 F 106 25 120/58 93 Intake and Output 02/11/18 02/12/18 02/12/18 23:59 07:59 15:59 Intake Total 1100 / 1100 1250 / 1250 0 / 0 Output Total 850 / 850 600 / 600 2450 / 2450 Balance 250 / 250 650 / 650 -2450 / -2450 Intake: IV Fluids 1100 / 1100 1200 / 1200 Lactated Ringers 1,000 ML @ 75 1000 / 1000 1000 / 1000 mls/hr IVC .[id number] GRETA Rx#: [id number] Cipro Premix 200 MG/100 ML 200 100 / 100 mg In 100 ml @ 100 mls/hr IVPB Q12HR GRETA Rx#:[id number] Flagyl Premix 500 MG/100 ML 500 100 / 100 100 / 100 mg In 100 ml @ 100 mls/hr IVPB Q8HR GRETA Rx#:[id number] Oral 50 / 50 0 / 0 Output: Urine 200 / 200 1600 / 1600 Catheter 850 / 850 400 / 400 850 / 850 Urethral (Chow) 500 / 500 150 / 150 Other: Meal Lunch Percent of Meal Consumed 0% Stool Size Moderate Copious Stool Consistency loose Stool Characteristics Normal for Patient Stool Color Green Brown Yellow # Bowel Movements 1 # Bowel Movement Diapers 1 1 Blood Glucose* 111 99 157 - General Appearance General appearance: Present: well-developed, well-nourished EENT: Present: ATNC Neurologic: Present: alert and oriented x3 Psychiatric: Present: mood/affect appropriate - Lab 02/12/18 04:20 02/12/18 04:20 Most recent lab results ABG pH 7.31 pH Units (7.32-7.45) L 02/11/18 11:02 ABG pCO2 42 mmHg (35-45) 02/11/18 11:02 ABG pO2 62 mmHg (85-104) L 02/11/18 11:02 ABG HCO3 21 mEq/L (21-27) 02/11/18 11:02 ABG O2 Saturation 89 % (95-98) L 02/11/18 11:02 Calcium 6.2 mg/dL (8.6-10.3) L 02/12/18 04:20 Magnesium 1.5 mg/dL (1.6-2.6) L 02/09/18 05:37 Urine Creatinine 69 mg/dL 02/11/18 15:51 Urine Sodium < 10.0 mEq/L 02/11/18 15:51 Consult Discharge Plan - Plan Referrals: Chau Cadena MD [Primary Care Provider] - 02/19/18 9:00 am
--- NOTE | 2018-02-12 15:01 | General Surgery Consult Note ---
<Cherrie Pro Ketan - Last Filed: 02/12/18 15:51> Date of Encounter: 02/12/18 Time of Encounter: 14:51 Assessment and Plan (1) Cholelithiasis Current Visit: Yes Status: Acute -CT abd pelvis 02/08/2018 findings consistent with acute pancreatitis. No pancreatic pseudo-assist seen. Otherwise no acute abnormality seen in the abdomen and pelvis. -02/10/2018 MRCP did note cholelithiasis but did not not show obstruction. No evidence of choledocolithiasis. Noteable acute pancreatitis, ARF, hypoxia, leukocytosis, management per primary team. -Patient will need to recover from her acute conditions (pancreatitis and ТАТЬЯНА) No surgical intervention this admission. Pt can follow-up in the office with Dr. Quinn in 4-6 weeks to discuss interval cholecystectomy as an outpatient ( @0820). Thank you for allowing us to participate in Ms. Og's care. Surgery will sign off at this time. Please reconsult if questions or needs arise, Qualifiers: Cholelithiasis location: gallbladder Cholecystitis presence: without cholecystitis Biliary obstruction: without biliary obstruction Qualified Code(s): K80.20 - Calculus of gallbladder without cholecystitis without obstruction (2) SOB (shortness of breath) Current Visit: Yes Status: Acute Pt is SOB at rest. Speaking 1-2 word sentences. RN notified. Pt states this is similar to her SOB earlier and was relieved by lasix. Management per primary team. History of Present Illness Consult date: 02/12/18 (Dr. Eliud Quinn) Reason for consult: gallstones Requesting physician: Janel Yu History of present illness: Maria D is a 77-year-old female who presents for abdominal discomfort. She was noted to have acute pancreatitis per imaging and laboratory studies. No obstruction was identified. During this admission she was also noted to have an acute kidney injury, acute respiratory failure, and leukocytosis. She has been evaluated by nephrology, pulmonology, and gastroenterology. Surgery has been asked to evaluate this patient for possible cholecystectomy. She presented on 02/08/2018 for complaints of a one day history of abdominal discomfort, nausea, and vomiting. She denied fever, chills, changes in bowel habits, alcohol use, or bloody vomiting/feces. She was supported with discomfort management, IVF, and imaging. Her WBC has decreased to 12.8 and lipase decreased to 84. Her IVFs had to be stopped due to acute SOB and she has been given lasix. Presently, she states her nausea and pain are improving, she is being trialed on clear liquids. Her daughter is at bedside and participates in the subjective review. Patient states she is short of breath and is reluctant to participate in conversation. Past Med Surg Social Fam HX - Past Medical History Medical history: COPD, hypertension, osteoporosis, RA Psychiatric history: no psych history - Past Surgical History Surgical History: cataract - Social History Smoking Status: Former smoker Smokeless Tobacco Status: No Alcohol use: none Drug use: none - Family History Mother History Unknown: Yes Medications and Allergies Calcium Carbonate/Vitamin D3 [Calcium 600 with Vit D Chew Tb] 1 tab PO BID 06/01 [History] Denosumab [Prolia (For Outpatient Infusion)] 60 mg IJ Q6M 06/01/17 [History] Lisinopril [Zestril] 10 mg PO DAILY 06/01/17 [History] Hydroxychloroquine [Plaquenuil] 300 mg PO [id number] 07/17/17 [History] Sulfasalazine [Azulfidine] 1,000 mg PO BID 07/17/17 [History] Folic Acid 1 mg PO DAILY #30 tablet 01/18/18 [Rx] Adalimumab [Humira] 40 mg SQ Q2W 02/08/18 [History] Ferrous Sulfate [Iron] 325 mg PO BID 02/08/18 [History] Hydroxychloroquine [Plaquenuil] 400 mg PO SUSA 02/09/18 [History] 3 Allergy/AdvReac Type Severity Reaction Status Date / Time alendronate sodium Allergy Vomiting Verified 11/10/17 13:26 Penicillins [PCN] Allergy Anaphylaxis Verified 11/10/17 13:26 Review of Systems All systems PM: reviewed and no additional remarkable complaints except as stated All systems PM: The remainder of the systems were reviewed and are negative General Surgery Exam Initial Vital Signs Temp Pulse Resp BP Pulse Ox 98.7 F 94 15 125/74 93 02/08/18 22:15 02/08/18 22:15 02/08/18 22:15 02/08/18 22:15 02/08/18 22:15 VITAL SIGNS: Reviewed. See [facility] GENERAL: In mild apparent distress, able to speak in 1-2 word sentences. HEENT: [Normocephalic, atraumatic, pupils are equal and reactive, extraocular motions intact, oropharynx is pink and moist, there is some JVD noted.] CHEST/RESPIRATORY: The thorax is free from signs of trauma. Lung sounds: [SOB at rest and is only able to speak in 1-2 word sentences.] CARDIAC: [Regular rate and rhythm. ] VASCULAR: [No Edema. 2+ peripheral pulses.] ABDOMEN: [ soft, nontender, hypoactive bowel sounds ] MUSCULOSKELETAL: [ROM not evaluated.] NEUROLOGIC EXAM: [Alert and oriented x 3. Labored speech given respirations. Follows commands.] PSYCHIATRIC: [Mood normal.] SKIN: [No rash or lesions.] Exam Initial Vital Signs Temp Pulse Resp BP Pulse Ox 98.7 F 94 15 125/74 93 02/08/18 22:15 02/08/18 22:15 02/08/18 22:15 02/08/18 22:15 02/08/18 22:15 Results - Labs 02/12/18 04:20 02/12/18 04:20 Abnormal lab results WBC 12.8 K/mcL (4.3-11.1) H 02/12/18 04:20 RBC 3.23 M/mcL (3.82-4.97) L 02/12/18 04:20 Hgb 9.8 g/dL (11.5-15.4) L 02/12/18 04:20 Hct 31.3 % (35.3-44.9) L 02/12/18 04:20 MCHC 31.3 g/dL (31.6-35.5) L 02/12/18 04:20 RDW 17.2 % (11.5-14.5) H 02/12/18 04:20 Plt Count 118 K/mcL (140-400) L 02/12/18 04:20 Neutrophils # 10.9 K/mcL (1.6-8.9) H 02/12/18 04:20 Nucleated RBCs/100 WBC 0.2 /100 WBC (0) H 02/12/18 04:20 Smudge Cells Present (Not Present) A 02/12/18 04:20 Platelet Estimate Slight Decrease (Normal) L 02/12/18 04:20 Polychromasia 1+ (Not Present) A 02/11/18 04:48 Basophilic Stippling 2+ (Not Present) A 02/11/18 12:00 Anisocytosis 1+ (Not Present) A 02/12/18 04:20 Macrocytosis Present (Not Present) A 02/10/18 05:18 ABG pH 7.31 pH Units (7.32-7.45) L 02/11/18 11:02 ABG pO2 62 mmHg (85-104) L 02/11/18 11:02 ABG O2 Saturation 89 % (95-98) L 02/11/18 11:02 ABG Base Excess -5 mEq/L (-2 to 3) L 02/11/18 11:02 VBG pH 7.17 pH Units (7.32-7.42) L* 02/11/18 05:07 VBG pCO2 53 mmHg (41-51) H 02/11/18 05:07 VBG pO2 80 mmHg (25-50) H 02/11/18 05:07 VBG HCO3 19 mEq/L (21-27) L 02/11/18 05:07 Chloride 109 mEq/L (98-107) H 02/12/18 04:20 Carbon Dioxide 21 mEq/L (23-29) L 02/12/18 04:20 BUN 34 mg/dL (8-23) H 02/12/18 04:20 BUN/Creatinine Ratio 42 (6-26) H 02/12/18 04:20 Calcium 6.2 mg/dL (8.6-10.3) L 02/12/18 04:20 Venous Ioniz Calcium 0.82 mmol/L (1.15-1.35) L 02/10/18 10:18 Magnesium 1.5 mg/dL (1.6-2.6) L 02/09/18 05:37 Creatine Kinase 1305 Units/L (30-223) H 02/11/18 16:30 Serum Total Protein 5.0 g/dL (6.4-8.9) L 02/12/18 04:20 Albumin 2.8 g/dL (3.5-5.7) L 02/12/18 04:20 Globulin 2.2 g/dL (2.4-3.5) L 02/12/18 04:20 HDL Cholesterol 62 mg/dL (40-59) H 02/09/18 05:37 Lipase 84 Units/L (11-82) H 02/12/18 04:20 Urine Protein 30 mg/dL (Neg-Trace) H 02/11/18 15:51 Urine Ketones 15 mg/dL (Negative) H 02/11/18 15:51 Urine Blood Small (Negative) H 02/11/18 15:51 Ur Leukocyte Esterase Trace (Negative) H 02/11/18 15:51 Ur Culture Indicated? YES (NO) A 02/11/18 15:51 Diabetes panel 02/12/18 Range/Units 04:20 Sodium 138 (136-145) mEq/L Potassium 4.3 (3.5-5.1) mEq/L Chloride 109 H (98-107) mEq/L Carbon Dioxide 21 L (23-29) mEq/L BUN 34 H (8-23) mg/dL Creatinine 0.81 (0.60-1.20) mg/dL Glucose 97 (70-105) mg/dL Calcium 6.2 L (8.6-10.3) mg/dL AST 33 (13-39) Units/L ALT 33 (7-52) Units/L Alkaline Phosphatase 49 (34-104) Units/L Albumin 2.8 L (3.5-5.7) g/dL Calcium panel 02/12/18 Range/Units 04:20 Calcium 6.2 L (8.6-10.3) mg/dL Albumin 2.8 L (3.5-5.7) g/dL Pituitary panel 02/12/18 Range/Units 04:20 Sodium 138 (136-145) mEq/L Potassium 4.3 (3.5-5.1) mEq/L Chloride 109 H (98-107) mEq/L Carbon Dioxide 21 L (23-29) mEq/L BUN 34 H (8-23) mg/dL Creatinine 0.81 (0.60-1.20) mg/dL Glucose 97 (70-105) mg/dL Calcium 6.2 L (8.6-10.3) mg/dL Adrenal panel 02/12/18 Range/Units 04:20 Sodium 138 (136-145) mEq/L Potassium 4.3 (3.5-5.1) mEq/L Chloride 109 H (98-107) mEq/L Carbon Dioxide 21 L (23-29) mEq/L BUN 34 H (8-23) mg/dL Creatinine 0.81 (0.60-1.20) mg/dL Glucose 97 (70-105) mg/dL Calcium 6.2 L (8.6-10.3) mg/dL Total Bilirubin 0.5 (0.3-1.0) mg/dL AST 33 (13-39) Units/L ALT 33 (7-52) Units/L Alkaline Phosphatase 49 (34-104) Units/L Albumin 2.8 L (3.5-5.7) g/dL All other labs normal. - Imaging CT scan - abdomen: report reviewed CT scan - pelvis: report reviewed US - kidney/bladder: report reviewed Consult Discharge Plan - Plan Referrals: Chau Cadena MD [Primary Care Provider] - 02/19/18 9:00 am Eliud Quinn MD [Partnered Physician] - 03/12/18 8:15 am <Eliud Quinn - Last Filed: 02/12/18 18:57> Date of Encounter: 02/12/18 Review of Systems All systems PM: The remainder of the systems were reviewed and are negative General Surgery Exam Initial Vital Signs Temp Pulse Resp BP Pulse Ox 98.7 F 94 15 125/74 93 02/08/18 22:15 02/08/18 22:15 02/08/18 22:15 02/08/18 22:15 02/08/18 22:15 Exam Initial Vital Signs Temp Pulse Resp BP Pulse Ox 98.7 F 94 15 125/74 93 02/08/18 22:15 02/08/18 22:15 02/08/18 22:15 02/08/18 22:15 02/08/18 22:15 Results - Labs 02/12/18 04:20 02/12/18 04:20 Abnormal lab results WBC 12.8 K/mcL (4.3-11.1) H 02/12/18 04:20 RBC 3.23 M/mcL (3.82-4.97) L 02/12/18 04:20 Hgb 9.8 g/dL (11.5-15.4) L 02/12/18 04:20 Hct 31.3 % (35.3-44.9) L 02/12/18 04:20 MCHC 31.3 g/dL (31.6-35.5) L 02/12/18 04:20 RDW 17.2 % (11.5-14.5) H 02/12/18 04:20 Plt Count 118 K/mcL (140-400) L 02/12/18 04:20 Neutrophils # 10.9 K/mcL (1.6-8.9) H 02/12/18 04:20 Nucleated RBCs/100 WBC 0.2 /100 WBC (0) H 02/12/18 04:20 Smudge Cells Present (Not Present) A 02/12/18 04:20 Platelet Estimate Slight Decrease (Normal) L 02/12/18 04:20 Polychromasia 1+ (Not Present) A 02/11/18 04:48 Basophilic Stippling 2+ (Not Present) A 02/11/18 12:00 Anisocytosis 1+ (Not Present) A 02/12/18 04:20 Macrocytosis Present (Not Present) A 02/10/18 05:18 ABG pH 7.31 pH Units (7.32-7.45) L 02/11/18 11:02 ABG pO2 62 mmHg (85-104) L 02/11/18 11:02 ABG O2 Saturation 89 % (95-98) L 02/11/18 11:02 ABG Base Excess -5 mEq/L (-2 to 3) L 02/11/18 11:02 VBG pH 7.17 pH Units (7.32-7.42) L* 02/11/18 05:07 VBG pCO2 53 mmHg (41-51) H 02/11/18 05:07 VBG pO2 80 mmHg (25-50) H 02/11/18 05:07 VBG HCO3 19 mEq/L (21-27) L 02/11/18 05:07 Chloride 109 mEq/L (98-107) H 02/12/18 04:20 Carbon Dioxide 21 mEq/L (23-29) L 02/12/18 04:20 BUN 34 mg/dL (8-23) H 02/12/18 04:20 BUN/Creatinine Ratio 42 (6-26) H 02/12/18 04:20 POC Glucose 157 mg/dL (70-99) H 02/12/18 11:16 Calcium 6.2 mg/dL (8.6-10.3) L 02/12/18 04:20 Venous Ioniz Calcium 0.82 mmol/L (1.15-1.35) L 02/10/18 10:18 Magnesium 1.5 mg/dL (1.6-2.6) L 02/09/18 05:37 Creatine Kinase 1305 Units/L (30-223) H 02/11/18 16:30 Serum Total Protein 5.0 g/dL (6.4-8.9) L 02/12/18 04:20 Albumin 2.8 g/dL (3.5-5.7) L 02/12/18 04:20 Globulin 2.2 g/dL (2.4-3.5) L 02/12/18 04:20 HDL Cholesterol 62 mg/dL (40-59) H 02/09/18 05:37 Lipase 84 Units/L (11-82) H 02/12/18 04:20 Urine Protein 30 mg/dL (Neg-Trace) H 02/11/18 15:51 Urine Ketones 15 mg/dL (Negative) H 02/11/18 15:51 Urine Blood Small (Negative) H 02/11/18 15:51 Ur Leukocyte Esterase Trace (Negative) H 02/11/18 15:51 Ur Culture Indicated? YES (NO) A 02/11/18 15:51 Diabetes panel 02/12/18 Range/Units 04:20 Sodium 138 (136-145) mEq/L Potassium 4.3 (3.5-5.1) mEq/L Chloride 109 H (98-107) mEq/L Carbon Dioxide 21 L (23-29) mEq/L BUN 34 H (8-23) mg/dL Creatinine 0.81 (0.60-1.20) mg/dL Glucose 97 (70-105) mg/dL Calcium 6.2 L (8.6-10.3) mg/dL AST 33 (13-39) Units/L ALT 33 (7-52) Units/L Alkaline Phosphatase 49 (34-104) Units/L Albumin 2.8 L (3.5-5.7) g/dL Calcium panel 02/12/18 Range/Units 04:20 Calcium 6.2 L (8.6-10.3) mg/dL Albumin 2.8 L (3.5-5.7) g/dL Pituitary panel 02/12/18 Range/Units 04:20 Sodium 138 (136-145) mEq/L Potassium 4.3 (3.5-5.1) mEq/L Chloride 109 H (98-107) mEq/L Carbon Dioxide 21 L (23-29) mEq/L BUN 34 H (8-23) mg/dL Creatinine 0.81 (0.60-1.20) mg/dL Glucose 97 (70-105) mg/dL Calcium 6.2 L (8.6-10.3) mg/dL Adrenal panel 02/12/18 Range/Units 04:20 Sodium 138 (136-145) mEq/L Potassium 4.3 (3.5-5.1) mEq/L Chloride 109 H (98-107) mEq/L Carbon Dioxide 21 L (23-29) mEq/L BUN 34 H (8-23) mg/dL Creatinine 0.81 (0.60-1.20) mg/dL Glucose 97 (70-105) mg/dL Calcium 6.2 L (8.6-10.3) mg/dL Total Bilirubin 0.5 (0.3-1.0) mg/dL AST 33 (13-39) Units/L ALT 33 (7-52) Units/L Alkaline Phosphatase 49 (34-104) Units/L Albumin 2.8 L (3.5-5.7) g/dL All other labs normal. - Attending Attestation I have personally performed a face to face evaluation on this patient. I have reviewed and agree with the care plan. History and Exam by me shows: The patient is seen and evaluated. Her abdominal examination is negative. She appears to have had an episode of gallstone pancreatitis. Her abdominal pain is resolved and her lipase has normalized. She continues to have a slight leukocytosis. Unfortunately, she has tremendous breathing problems and other comorbid conditions. I would recommend that she receive further treatment prior to cholecystectomy area I would prefer that we perform cholecystectomy during the convalescent period after this hospital admission, however, if her condition changes in this is related to gallstone pancreatitis recurrence she may require cholecystectomy prior to discharge. My preference is medical treatment of comorbid conditions at this point Eliud Quinn MD FACS
[2018-02-12] MEDS: OXYCODONE Oral CONC 10 MG/0.5 ML ORAL.SYG SL PRN (16:35)
[2018-02-12] MEDS ORDERED: Furosemide 40 MG/4 ML VIAL IVP ONE (17:44)
[2018-02-13] MEDS: MetroNIDAZOLE 500 MG/100 ML 500 MG/100 ML BAG IVPB SCH ×3 (00:09→15:28)
[2018-02-13 04:06] LABS: Basophils % 0.2 %; Hematocrit 30.3 % (35.3-44.9); Hemoglobin 9.7 g/dL (11.5-15.4); Lymphocytes # 0.7 K/mcL (0.6-4.6); Lymphocytes % 5.9 %; Mean Corpuscular Hemoglobin 30.7 pg (28.0-33.3); Mean Corpuscular Volume 95.9 fL (83.0-100.0); Mean Platelet Volume 10.3 fL (9.4-12.4); Monocytes # 1.5 K/mcL (0.0-1.3); Monocytes % 12.4 %; Neutrophils # 9.8 K/mcL (1.6-8.9); Nucleated Red Blood Cells 0.6 /100 WBC (0); Platelet Count 120 K/mcL (140-400); Red Blood Count 3.16 M/mcL (3.82-4.97); Segmented Neutrophils % 79.5 %
[2018-02-13] MEDS: Levalbuterol Neb 1.25 MG/3 ML IH SCH ×4 (04:18→21:45)
[2018-02-13 04:33] LABS: BUN/Creatinine Ratio 31 (6-26); Blood Urea Nitrogen 20 mg/dL (8-23); Calcium 6.5 mg/dL (8.6-10.3); Carbon Dioxide 26 mEq/L (23-29); Chloride 106 mEq/L (98-107); Glucose 120 mg/dL (70-105); Lipase 45 Units/L (11-82); Osmolality,Calculated 288 (280-300); Potassium 3.5 mEq/L (3.5-5.1); Sodium 137 mEq/L (136-145); eGFR For African Americans > 60 (> 60); eGFR For Non-African Americans > 60 (> 60)
[2018-02-13] MEDS: *HR* Heparin 5,000 UNIT/ML VIAL SQ SCH ×2 (05:54→18:01)
[2018-02-13] MEDS ORDERED: methylPREDNISolone 125 MG/2 ML VIAL ONE (06:17)
[2018-02-13] MEDS: methylPREDNISolone 125 MG/2 ML VIAL IVP SCH ×2 (06:22→15:29)
[2018-02-13] MEDS ORDERED: Furosemide 20 MG/2 ML VIAL IVP ONE (07:24)
[2018-02-13] MEDS ORDERED: Calcium Gluconate 2,000 MG in 0.9 % Sodium Chloride 100 ML IVPB ONE (07:32)
--- NOTE | 2018-02-13 07:58 | Pulmonology Progress Note ---
<Thaddeus Starkey - Last Filed: 02/13/18 08:25> Date of Encounter: 02/13/18 Time of Encounter: 07:56 Assessment and Plan (1) Hypoxia Current Visit: No Status: Acute Improved this time. Patient on nasal cannula this morning 4 L saturating 95%. Continue Xopenex, Symbicort as well as Solu-Medrol. Chest x-ray reviewed with continued left pleural effusion. Plan to add Precedex today to improve toleration of NIPPV (2) Atelectasis of both lungs Current Visit: No Status: Acute Likely secondary to splinting from abdominal pain secondary to pancreatitis. Continue incentive spirometry. NIPPV as tolerated. (3) Acute pancreatitis Current Visit: No Status: Resolved As per primary team. Lipase is normal this morning. Abdominal exam without peritoneal features. Continue IV fluids as per primary team with close I/Os monitoring. Qualifiers: Pancreatitis type: unspecified pancreatitis type Acute pancreatitis complication: unspecified Qualified Code(s): K85.90 - Acute pancreatitis without necrosis or infection, unspecified Subjective Principal diagnosis: Acute pancreatitis Interval history: No acute events overnight. Review 24 hour vitals with intermittent tachypnea. Patient reports she feels tired this morning. Family at bedside updated on plan for patient's care. Objective PUL Vital signs: Last Vital Signs Temp 97.7 F 02/13/18 00:03 Pulse 105 02/13/18 00:03 Resp 16 02/13/18 04:13 BP 135/72 02/13/18 00:03 Pulse Ox 93 02/13/18 04:13 General appearance: other (Mild respiratory distress) Eyes: nonicteric ENT: oropharynx dry Effort: mildly labored Auscultation: bilateral: diminished breath sounds, wheezes (Faint end expiratory wheezing) Cardiovascular: other (Tachycardic. Regular rhythm.) Gastrointestinal: soft, non-distended Integumentary: normal Extremities: no cyanosis, other (Mild 1+ bilateral lower extremity pitting edema ) Musculoskeletal: no deformities normal mental status, non-focal exam mood appropriate Results - Laboratory Findings CBC and BMP: 02/13/18 03:46 02/13/18 03:46 ABG ABG pH 7.31 pH Units (7.32-7.45) L 02/11/18 11:02 ABG pCO2 42 mmHg (35-45) 02/11/18 11:02 ABG pO2 62 mmHg (85-104) L 02/11/18 11:02 ABG O2 Saturation 89 % (95-98) L 02/11/18 11:02 Abnormal lab findings: Abnormal lab results WBC 12.3 K/mcL (4.3-11.1) H 02/13/18 03:46 RBC 3.16 M/mcL (3.82-4.97) L 02/13/18 03:46 Hgb 9.7 g/dL (11.5-15.4) L 02/13/18 03:46 Hct 30.3 % (35.3-44.9) L 02/13/18 03:46 RDW 17.0 % (11.5-14.5) H 02/13/18 03:46 Plt Count 120 K/mcL (140-400) L 02/13/18 03:46 Neutrophils # 9.8 K/mcL (1.6-8.9) H 02/13/18 03:46 Monocytes # 1.5 K/mcL (0.0-1.3) H 02/13/18 03:46 Nucleated RBCs/100 WBC 0.6 /100 WBC (0) H 02/13/18 03:46 Smudge Cells Present (Not Present) A 02/12/18 04:20 Platelet Estimate Slight Decrease (Normal) L 02/12/18 04:20 Polychromasia 1+ (Not Present) A 02/11/18 04:48 Basophilic Stippling 2+ (Not Present) A 02/11/18 12:00 Anisocytosis 1+ (Not Present) A 02/12/18 04:20 Macrocytosis Present (Not Present) A 02/10/18 05:18 ABG pH 7.31 pH Units (7.32-7.45) L 02/11/18 11:02 ABG pO2 62 mmHg (85-104) L 02/11/18 11:02 ABG O2 Saturation 89 % (95-98) L 02/11/18 11:02 ABG Base Excess -5 mEq/L (-2 to 3) L 02/11/18 11:02 VBG pH 7.17 pH Units (7.32-7.42) L* 02/11/18 05:07 VBG pCO2 53 mmHg (41-51) H 02/11/18 05:07 VBG pO2 80 mmHg (25-50) H 02/11/18 05:07 VBG HCO3 19 mEq/L (21-27) L 02/11/18 05:07 BUN/Creatinine Ratio 31 (6-26) H 02/13/18 03:46 Glucose 120 mg/dL (70-105) H 02/13/18 03:46 POC Glucose 115 mg/dL (70-99) H 02/12/18 17:25 Calcium 6.5 mg/dL (8.6-10.3) L 02/13/18 03:46 Venous Ioniz Calcium 0.82 mmol/L (1.15-1.35) L 02/10/18 10:18 Magnesium 1.5 mg/dL (1.6-2.6) L 02/09/18 05:37 Creatine Kinase 1305 Units/L (30-223) H 02/11/18 16:30 Serum Total Protein 5.0 g/dL (6.4-8.9) L 02/12/18 04:20 Albumin 2.8 g/dL (3.5-5.7) L 02/12/18 04:20 Globulin 2.2 g/dL (2.4-3.5) L 02/12/18 04:20 HDL Cholesterol 62 mg/dL (40-59) H 02/09/18 05:37 Urine Protein 30 mg/dL (Neg-Trace) H 02/11/18 15:51 Urine Ketones 15 mg/dL (Negative) H 02/11/18 15:51 Urine Blood Small (Negative) H 02/11/18 15:51 Ur Leukocyte Esterase Trace (Negative) H 02/11/18 15:51 Ur Culture Indicated? YES (NO) A 02/11/18 15:51 - Microbiology Findings Microbiology Findings: Microbiology, Last 48 Hours 02/11/18 15:51 Urine Culture - Preliminary Urine,Clean Catch No growth. - Clinical Findings Intake & Output: Intake & Output 02/12/18 02/12/18 02/13/18 15:59 23:59 07:59 Intake Total 100 / 100 200 / 200 450 / 450 Output Total 2550 / 2550 1650 / 1650 300 / 300 Balance -2450 / -2450 -1450 / -1450 150 / 150 Weight 94.4 kg Consult Discharge Plan - Plan Referrals: Eliud Quinn MD [Partnered Physician] - 03/12/18 8:15 am Chau Cadena MD [Primary Care Provider] - 02/19/18 9:00 am <BeccaKellenjohn John - Last Filed: 02/13/18 08:42> Date of Encounter: 02/13/18 Assessment and Plan (1) Acute pancreatitis Current Visit: No Status: Resolved Qualifiers: Pancreatitis type: unspecified pancreatitis type Acute pancreatitis complication: unspecified Qualified Code(s): K85.90 - Acute pancreatitis without necrosis or infection, unspecified (2) Atelectasis of both lungs Current Visit: No Status: Acute (3) Hypoxia Current Visit: No Status: Acute (4) Rheumatoid arthritis Current Visit: No Status: Chronic Qualifiers: Rheumatoid arthritis location: unspecified site Rheumatoid factor presence : unspecified presence Qualified Code(s): M06.9 - Rheumatoid arthritis, unspecified (5) Acute kidney injury Current Visit: No Status: Acute Objective PUL Vital signs: Last Vital Signs Temp 97.7 F 02/13/18 00:03 Pulse 105 02/13/18 00:03 Resp 16 02/13/18 04:13 BP 135/72 02/13/18 00:03 Pulse Ox 93 02/13/18 04:13 Results - Laboratory Findings CBC and BMP: 02/13/18 03:46 02/13/18 03:46 ABG ABG pH 7.31 pH Units (7.32-7.45) L 02/11/18 11:02 ABG pCO2 42 mmHg (35-45) 02/11/18 11:02 ABG pO2 62 mmHg (85-104) L 02/11/18 11:02 ABG O2 Saturation 89 % (95-98) L 02/11/18 11:02 Abnormal lab findings: Abnormal lab results WBC 12.3 K/mcL (4.3-11.1) H 02/13/18 03:46 RBC 3.16 M/mcL (3.82-4.97) L 02/13/18 03:46 Hgb 9.7 g/dL (11.5-15.4) L 02/13/18 03:46 Hct 30.3 % (35.3-44.9) L 02/13/18 03:46 RDW 17.0 % (11.5-14.5) H 02/13/18 03:46 Plt Count 120 K/mcL (140-400) L 02/13/18 03:46 Neutrophils # 9.8 K/mcL (1.6-8.9) H 02/13/18 03:46 Monocytes # 1.5 K/mcL (0.0-1.3) H 02/13/18 03:46 Nucleated RBCs/100 WBC 0.6 /100 WBC (0) H 02/13/18 03:46 Smudge Cells Present (Not Present) A 02/12/18 04:20 Platelet Estimate Slight Decrease (Normal) L 02/12/18 04:20 Polychromasia 1+ (Not Present) A 02/11/18 04:48 Basophilic Stippling 2+ (Not Present) A 02/11/18 12:00 Anisocytosis 1+ (Not Present) A 02/12/18 04:20 Macrocytosis Present (Not Present) A 02/10/18 05:18 ABG pH 7.31 pH Units (7.32-7.45) L 02/11/18 11:02 ABG pO2 62 mmHg (85-104) L 02/11/18 11:02 ABG O2 Saturation 89 % (95-98) L 02/11/18 11:02 ABG Base Excess -5 mEq/L (-2 to 3) L 02/11/18 11:02 VBG pH 7.17 pH Units (7.32-7.42) L* 02/11/18 05:07 VBG pCO2 53 mmHg (41-51) H 02/11/18 05:07 VBG pO2 80 mmHg (25-50) H 02/11/18 05:07 VBG HCO3 19 mEq/L (21-27) L 02/11/18 05:07 BUN/Creatinine Ratio 31 (6-26) H 02/13/18 03:46 Glucose 120 mg/dL (70-105) H 02/13/18 03:46 POC Glucose 115 mg/dL (70-99) H 02/12/18 17:25 Calcium 6.5 mg/dL (8.6-10.3) L 02/13/18 03:46 Venous Ioniz Calcium 0.82 mmol/L (1.15-1.35) L 02/10/18 10:18 Magnesium 1.5 mg/dL (1.6-2.6) L 02/09/18 05:37 Creatine Kinase 1305 Units/L (30-223) H 02/11/18 16:30 Serum Total Protein 5.0 g/dL (6.4-8.9) L 02/12/18 04:20 Albumin 2.8 g/dL (3.5-5.7) L 02/12/18 04:20 Globulin 2.2 g/dL (2.4-3.5) L 02/12/18 04:20 HDL Cholesterol 62 mg/dL (40-59) H 02/09/18 05:37 Urine Protein 30 mg/dL (Neg-Trace) H 02/11/18 15:51 Urine Ketones 15 mg/dL (Negative) H 02/11/18 15:51 Urine Blood Small (Negative) H 02/11/18 15:51 Ur Leukocyte Esterase Trace (Negative) H 02/11/18 15:51 Ur Culture Indicated? YES (NO) A 02/11/18 15:51 - Microbiology Findings Microbiology Findings: Microbiology, Last 48 Hours 02/11/18 15:51 Urine Culture - Preliminary Urine,Clean Catch No growth. - Clinical Findings Intake & Output: Intake & Output 02/12/18 02/13/18 02/13/18 23:59 07:59 15:59 Intake Total 200 / 200 450 / 450 Output Total 1650 / 1650 300 / 300 Balance -1450 / -1450 150 / 150 Weight 94.4 kg - Attending Attestation I examined this patient and my medical decision-making was reviewed with the Resident Physician. I agree with the documented findings, disposition and treatment plan as described except to the extent set forth below. Patient seen and examined. Labs, radiology, chart personally reviewed. 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 Systemic steroid added. Explained to patient and the family condition worsen she will need to invasive mechanical ventilation. Does not tolerate, we will transfer patient to ICU. Cardiovascular: stable GI: Nutrition per dietary and GI prophylaxis per routine Heme: DVT prophylaxis per routine ID: Continue antibiotics and plan to de-escalation Renal; urine out put and renal funtion reviewed Endorcine: blood glucose is monitored Lines: all lines checked and no evidence of infections Skin: skin care to prevent pressure ulcers per nursing routine care I spent 32 min of Critical Care time with this patient. It involved decision making of high complexity to assess, manipulate, and support vital organ system failure and/or to prevent further life threatening deterioration of the patient' s condition. The time involved in the performance of separately reportable procedures was not counted toward critical care time.
--- NOTE | 2018-02-13 09:09 | Internal Med Progress Note ---
<Janel Yu - Last Filed: 02/13/18 09:06> Date of Encounter: 02/13/18 Time of Encounter: 09:00 - Assessment and plan (1) Acute pancreatitis Current Visit: No Status: Inactive Assessment and plan: Patient has acute pancreatitis demonstrated by CT abdomen and elevated lipase. She had sudden onset abdominal pain with nausea and vomiting. Liver ultrasound demonstrated cholelithiasis with no evidence of acute cholecystitis. No alcohol use. No history of pancreatitis. Lipid panel WNL, calcium. Lipase 84 (>1800) afebrile, tachycardic 105 WBC 12.3 (25.6) Ca 6.5 -MRCP demonstrated pleural effusions, ascites, anasarca. No CBD obstruction. -Gastroenterology recommends pain control and IV fluids since no CBD obstruction. Also recommend surgery consultation for possible cholecystectomy once stable. -Surgery will follow up outpatient in 4-6 weeks to discuss cholecystectomy patient is stable from ТАТЬЯНА and pancreatitis. Appointment is on 03/12/2018 at 8: 20 AM per surgery note. -High risk due to [place] criteria 7 -patient is clinically improving. She reports abdominal pain has improved his only tender to palpation. Abdominal exam is soft, minimally tender, bowel sounds present, non-peritoneal. -Gastroenterology started clear liquid diet, patient is tolerating well. - Zofran for nausea -Cipro and Flagyl Day 5 -hold fluids due to pleural effusions and hypoxia, give fluids if hypotensive -[place] and/or oxycodone for pain -if patient worsens may transferred to [facility] -will closely monitor Qualifiers: Pancreatitis type: unspecified pancreatitis type Acute pancreatitis complication: no infection or necrosis Qualified Code(s): K85.90 - Acute pancreatitis without necrosis or infection, unspecified (2) Hypoxia Current Visit: No Status: Acute Assessment and plan: Improving. Likely secondary to fluid overload due to treatment with IVF for pancreatitis. Along with splinting due to abdominal pain. CXR 02/10/2018: small pleural effusions with associated airspace disease indicating atelectasis vs pneumonia CXR 02/13/2018: stable by basilar airspace disease and left pleural effusion on BiPAP SPO2 96 -patient reports shortness of breath. -Bilateral diffuse wheezing and rales at bases -pulmonology consulted and recommendations are appreciated. Recommendations are lux cath for accurate I&O. incentive spirometry. Supplemental oxygen, -patient has received multiple doses of Lasix. Will continue to give Lasix for the pleural effusion and hypoxia -Solu-Medrol added due to wheezing with history of COPD -Continue supplemental oxygen (3) Acute renal failure Current Visit: No Status: Acute Assessment and plan: Resolved Acute renal failure in setting of nausea, vomiting, dehydration. Also secondary to recent CT scan with contrast. Most likely prerenal. Cr 0.64 (1.59) improving I/O: 9210/ 8350 Balance 860. Appropriate urine output renal ultrasound demonstrating normal kidneys and bladder -lux cath for strict I&O -monitor Scr -avoid nephrotoxic agents -consult nephrology about treatment of ТАТЬЯНА, recommendations are appreciated. Nephrology recommends avoid nephrotoxic Qualifiers: Acute renal failure type: unspecified Qualified Code(s): N17.9 - Acute kidney failure, unspecified (4) Leukocytosis Current Visit: No Status: Acute Assessment and plan: Improving WBC 12.3 (25.6), most likely secondary to acute pancreatitis and dehydration. Liver ultrasound demonstrated cholelithiasis without cholecystitis. -Patient was empirically treated with Cipro and Flagyl Day 5. Continue antibiotics -will continue to monitor Qualifiers: Leukocytosis type: leukemoid reaction Qualified Code(s): D72.823 - Leukemoid reaction (5) Hypocalcemia Current Visit: No Status: Acute Assessment and plan: Patient takes calcium supplements b.i.d. at home for hypocalcemia Calcium 6.5 improving -supplement calcium today and as needed -restart patient home calcium supplements -will continue to monitor (6) Hypertension Current Visit: No Status: Acute Assessment and plan: History of hypertension controlled with lisinopril. blood pressure stable will hold home medications due to variable blood pressure Qualifiers: Qualified Code(s): I10 - Essential (primary) hypertension (7) Rheumatoid arthritis Current Visit: No Status: Chronic Assessment and plan: Continue follow-up as outpatient -holding home medications Qualifiers: Rheumatoid arthritis location: unspecified site Rheumatoid factor presence : unspecified presence Qualified Code(s): M06.9 - Rheumatoid arthritis, unspecified (8) COPD (chronic obstructive pulmonary disease) Current Visit: Yes Status: Acute Assessment and plan: History of COPD. -continue symbicort -xopenex -requiring supplemental oxygen and BiPAP Qualifiers: Qualified Code(s): J44.9 - Chronic obstructive pulmonary disease, unspecified (9) DVT prophylaxis Current Visit: No Status: Acute Assessment and plan: Heparin subcutaneously - Time Spent With Patient Total time spent is greater than 50% in coordination of care (as documented) at patient's floor/unit and/or counseling patient: - Subjective Interval history: 77-year-old female past medical history of COPD, RA, hypertension who presented as a transfer from [place] ED due to acute pancreatitis demonstrated by CT and elevated lipase. She presented initially complaining of sudden epigastric abdominal pain with nausea and vomiting. Upon my examination she is alert and oriented times 3 and is on BiPAP. She reports continued shortness of breath. She reports her pain has improved markedly in there is only minimal tenderness to palpation. She denies chest pain, nausea, vomiting, change in urination. - Constitutional Vitals: Temp Pulse Resp BP Pulse Ox 97.9 F 100 21 123/71 96 02/13/18 08:15 02/13/18 08:15 02/13/18 08:15 02/13/18 08:15 02/13/18 08:15 General appearance: Present: mild distress, A&O X 3, answers questions appropriately Exam: Gen.: Vitals noted. No acute distress. AAOx3 HEENT: oropharynx clear, Normocephalic, atraumatic Cardiac: RRR, no murmur, +S1/S2 Pulmonary: + bilaterally wheezesand rales, no rhonchi, equal chest expansion Abdomen: soft, minimal epigastric tender, Bowel sounds noted, no guarding MSK: no joint swelling noted Extremities: + BLE edema, nontender calf, no cyanosis or clubbing Neuro: A&Ox3, moves all extremities, no focal deficits Psych: Appropriate mood and behavior Internal Medicine: Result - Labs CBC & Chem 7: 02/13/18 03:46 02/13/18 03:46 Labs: Short CBC 02/13/18 Range/Units 03:46 WBC 12.3 H (4.3-11.1) K/mcL Hgb 9.7 L (11.5-15.4) g/dL Hct 30.3 L (35.3-44.9) % Plt Count 120 L (140-400) K/mcL Neutrophils # 9.8 H (1.6-8.9) K/mcL BMP 02/12/18 02/13/18 04:20 03:46 Sodium 138 137 Potassium 4.3 3.5 Chloride 109 H 106 Carbon Dioxide 21 L 26 BUN 34 H 20 Creatinine 0.81 0.64 Glucose 97 120 H Calcium 6.2 L 6.5 L Liver Function 02/12/18 Range/Units 04:20 Total Bilirubin 0.5 (0.3-1.0) mg/dL Direct Bilirubin 0.2 (0.0-0.2) mg/dL AST 33 (13-39) Units/L ALT 33 (7-52) Units/L Alkaline Phosphatase 49 (34-104) Units/L Albumin 2.8 L (3.5-5.7) g/dL - ABG Interpretation ABG results: ABG ABG pH 7.31 pH Units (7.32-7.45) L 02/11/18 11:02 ABG pCO2 42 mmHg (35-45) 02/11/18 11:02 ABG pO2 62 mmHg (85-104) L 02/11/18 11:02 ABG O2 Saturation 89 % (95-98) L 02/11/18 11:02 - Impressions Impressions Chest X-Ray 02/13/18 06:10 IMPRESSION: Stable bibasilar airspace disease and left pleural effusion. D/ / Malachi Gloria MD / Malachi Gloria MD Interpreting Provider: Malachi Gloria MD Consult Discharge Plan - Plan Referrals: Eliud Quinn MD [Partnered Physician] - 03/12/18 8:15 am Chau Cadena MD [Primary Care Provider] - 02/19/18 9:00 am <Quincy Zehng - Last Filed: 02/14/18 16:35> Date of Encounter: 02/14/18 - Assessment and plan (1) Acute pancreatitis Current Visit: No Status: Inactive Qualifiers: Pancreatitis type: unspecified pancreatitis type Acute pancreatitis complication: no infection or necrosis Qualified Code(s): K85.90 - Acute pancreatitis without necrosis or infection, unspecified (2) Acute renal failure Current Visit: No Status: Acute Qualifiers: Acute renal failure type: unspecified Qualified Code(s): N17.9 - Acute kidney failure, unspecified (3) Leukocytosis Current Visit: No Status: Acute Qualifiers: Leukocytosis type: leukemoid reaction Qualified Code(s): D72.823 - Leukemoid reaction (4) Rheumatoid arthritis Current Visit: No Status: Chronic Qualifiers: Rheumatoid arthritis location: unspecified site Rheumatoid factor presence : unspecified presence Qualified Code(s): M06.9 - Rheumatoid arthritis, unspecified (5) DVT prophylaxis Current Visit: No Status: Acute (6) Hypertension Current Visit: No Status: Acute Qualifiers: Qualified Code(s): I10 - Essential (primary) hypertension (7) Hypocalcemia Current Visit: No Status: Acute (8) Hypoxia Current Visit: No Status: Acute (9) COPD (chronic obstructive pulmonary disease) Current Visit: Yes Status: Acute Qualifiers: Qualified Code(s): J44.9 - Chronic obstructive pulmonary disease, unspecified (10) Diarrhea Current Visit: Yes Status: Acute Qualifiers: Qualified Code(s): R19.7 - Diarrhea, unspecified - Time Spent With Patient Total time spent is greater than 50% in coordination of care (as documented) at patient's floor/unit and/or counseling patient: - Constitutional Vitals: Temp Pulse Resp BP Pulse Ox 98.5 F 91 22 143/73 94 02/14/18 11:50 02/14/18 11:50 02/14/18 11:50 02/14/18 11:50 02/14/18 13:10 Internal Medicine: Result - Labs CBC & Chem 7: 02/14/18 03:09 02/14/18 03:09 Labs: Short CBC 02/14/18 Range/Units 03:09 WBC 9.3 (4.3-11.1) K/mcL Hgb 9.2 L (11.5-15.4) g/dL Hct 29.6 L (35.3-44.9) % Plt Count 121 L (140-400) K/mcL Neutrophils # 8.2 (1.6-8.9) K/mcL BMP 02/14/18 03:09 Sodium 140 Potassium 3.8 Chloride 107 Carbon Dioxide 28 BUN 21 Creatinine 0.62 Glucose 152 H Calcium 6.5 L - ABG Interpretation ABG results: ABG ABG pH 7.31 pH Units (7.32-7.45) L 02/11/18 11:02 ABG pCO2 42 mmHg (35-45) 02/11/18 11:02 ABG pO2 62 mmHg (85-104) L 02/11/18 11:02 ABG O2 Saturation 89 % (95-98) L 02/11/18 11:02 - Attending Attestation I performed a history and physical examination of the patient and discussed his/ her management with the resident. I reviewed the residents note and agree with the documented findings and plan of care.
[2018-02-13] MEDS: Budesonide/Formoterol 160/4.5 MDI IH SCH ×2 (11:06→21:47)
[2018-02-13] MEDS: Dexmedetomidine HCl 400 MCG/100 ML MLS IVC SCH (14:54)
[2018-02-14] MEDS: MetroNIDAZOLE 500 MG/100 ML 500 MG/100 ML BAG IVPB SCH ×3 (00:03→16:49)
[2018-02-14] MEDS: methylPREDNISolone 125 MG/2 ML VIAL IVP SCH ×3 (00:03→16:48)
[2018-02-14 03:34] LABS: Hematocrit 29.6 % (35.3-44.9); Hemoglobin 9.2 g/dL (11.5-15.4); Mean Corpuscular HGB Conc 31.1 g/dL (31.6-35.5); Mean Corpuscular Hemoglobin 29.7 pg (28.0-33.3); Mean Corpuscular Volume 95.5 fL (83.0-100.0); Mean Platelet Volume 10.4 fL (9.4-12.4); Nucleated Red Blood Cells 0.8 /100 WBC (0); Platelet Count 121 K/mcL (140-400); Red Cell Distribution Width 16.8 % (11.5-14.5)
[2018-02-14 03:45] LABS: BUN/Creatinine Ratio 34 (6-26); Blood Urea Nitrogen 21 mg/dL (8-23); Calcium 6.5 mg/dL (8.6-10.3); Carbon Dioxide 28 mEq/L (23-29); Chloride 107 mEq/L (98-107); Glucose 152 mg/dL (70-105); Osmolality,Calculated 296 (280-300); Potassium 3.8 mEq/L (3.5-5.1); Sodium 140 mEq/L (136-145); eGFR For African Americans > 60 (> 60); eGFR For Non-African Americans > 60 (> 60)
[2018-02-14] MEDS: Levalbuterol Neb 1.25 MG/3 ML IH SCH ×4 (03:52→21:22)
[2018-02-14 03:55] LABS: Lymphocytes # 0.9 K/mcL (0.6-4.6); Monocytes # 0.2 K/mcL (0.0-1.3); Neutrophils # 8.2 K/mcL (1.6-8.9)
[2018-02-14] MEDS: Dexmedetomidine HCl 400 MCG/100 ML MLS IVC SCH (05:33)
[2018-02-14] MEDS: *HR* Heparin 5,000 UNIT/ML VIAL SQ SCH ×2 (05:39→16:49)
[2018-02-14] MEDS ORDERED: Calcium Gluconate 2,000 MG in 0.9 % Sodium Chloride 100 ML IVPB ONE (07:19)
--- NOTE | 2018-02-14 08:17 | Internal Med Progress Note ---
<Janel Yu - Last Filed: 02/14/18 11:54> Date of Encounter: 02/14/18 Time of Encounter: 08:14 - Assessment and plan (1) Acute pancreatitis Current Visit: No Status: Inactive Assessment and plan: Patient has acute pancreatitis demonstrated by CT abdomen and elevated lipase. She had sudden onset abdominal pain with nausea and vomiting. Liver ultrasound demonstrated cholelithiasis with no evidence of acute cholecystitis. No alcohol use. No history of pancreatitis. Lipid panel WNL, calcium. Lipase 84 (>1800) afebrile, tachycardic 105 WBC 12.3 (25.6) Ca 6.5 -MRCP demonstrated pleural effusions, ascites, anasarca. No CBD obstruction. -Gastroenterology recommends pain control and IV fluids since no CBD obstruction. Also recommend surgery consultation for possible cholecystectomy once stable. -Surgery will follow up outpatient in 4-6 weeks to discuss cholecystectomy patient is stable from ТАТЬЯНА and pancreatitis. Appointment is on 03/12/2018 at 8: 20 AM per surgery note. -High risk due to Reynold criteria 7 -patient is clinically improving. She reports abdominal pain has improved his only tender to palpation. Abdominal exam is soft, minimally tender, bowel sounds present, non-peritoneal. -Gastroenterology started clear liquid diet, patient is tolerating well, started soft diet today and will increase is tolerated - Zofran for nausea -Cipro and Flagyl Day 6, -hold fluids due to pleural effusions and hypoxia, give fluids if hypotensive -[place] and/or oxycodone for pain -if patient worsens may transferred to [facility] -will closely monitor Qualifiers: Pancreatitis type: unspecified pancreatitis type Acute pancreatitis complication: no infection or necrosis Qualified Code(s): K85.90 - Acute pancreatitis without necrosis or infection, unspecified (2) Hypoxia Current Visit: No Status: Acute Assessment and plan: Improving. Likely secondary to fluid overload due to treatment with IVF for pancreatitis. Along with splinting due to abdominal pain. CXR 02/10/2018: small pleural effusions with associated airspace disease indicating atelectasis vs pneumonia CXR 02/13/2018: stable by basilar airspace disease and left pleural effusion nasal cannula SPO2 95 -patient reports improvement of shortness of breath and wheezing - Improved from yesterday. Decreased breath sounds bilaterally. No wheezing and rales at bases. -pulmonology consulted and recommendations are appreciated. Recommendations are lux cath for accurate I&O. incentive spirometry. Supplemental oxygen, -patient has received multiple doses of Lasix for the pleural effusion -Solu-Medrol day 2 -Continue supplemental oxygen (3) Acute renal failure Current Visit: No Status: Acute Assessment and plan: Resolved Acute renal failure in setting of nausea, vomiting, dehydration. Also secondary to recent CT scan with contrast. Most likely prerenal. Cr 0.62 (1.59) improving I/O: 97161/10917 Balance -220. Appropriate urine output renal ultrasound demonstrating normal kidneys and bladder -lux cath for strict I&O -monitor Scr -avoid nephrotoxic agents -consult nephrology about treatment of ТАТЬЯНА, recommendations are appreciated. Nephrology recommends avoid nephrotoxic Qualifiers: Acute renal failure type: unspecified Qualified Code(s): N17.9 - Acute kidney failure, unspecified (4) Leukocytosis Current Visit: No Status: Acute Assessment and plan: Improving WBC 12.3 (25.6), most likely secondary to acute pancreatitis and dehydration. Liver ultrasound demonstrated cholelithiasis without cholecystitis. -Patient was empirically treated with Cipro and Flagyl Day 5. Continue antibiotics -will continue to monitor Qualifiers: Leukocytosis type: leukemoid reaction Qualified Code(s): D72.823 - Leukemoid reaction (5) Hypocalcemia Current Visit: No Status: Acute Assessment and plan: Patient takes calcium supplements b.i.d. at home for hypocalcemia Calcium 6.5 improving -supplement calcium today and as needed -restart patient home calcium supplements -will continue to monitor (6) Hypertension Current Visit: No Status: Acute Assessment and plan: History of hypertension controlled with lisinopril. blood pressure stable will hold home medications due to variable blood pressure Qualifiers: Qualified Code(s): I10 - Essential (primary) hypertension (7) Rheumatoid arthritis Current Visit: No Status: Chronic Assessment and plan: Continue follow-up as outpatient -holding home medications Qualifiers: Rheumatoid arthritis location: unspecified site Rheumatoid factor presence : unspecified presence Qualified Code(s): M06.9 - Rheumatoid arthritis, unspecified (8) COPD (chronic obstructive pulmonary disease) Current Visit: Yes Status: Acute Assessment and plan: History of COPD. -continue symbicort -xopenex -requiring supplemental oxygen and BiPAP Qualifiers: Qualified Code(s): J44.9 - Chronic obstructive pulmonary disease, unspecified (9) DVT prophylaxis Current Visit: No Status: Acute Assessment and plan: Heparin subcutaneously (10) Diarrhea Current Visit: Yes Status: Acute Assessment and plan: Her nurse reported diarrhea 4x yesterday that was liquid. She tested C.diff negative. She is on flagyl which is likely cause. -gave imodium and diarrhea is improving Qualifiers: Qualified Code(s): R19.7 - Diarrhea, unspecified - Time Spent With Patient Total time spent is greater than 50% in coordination of care (as documented) at patient's floor/unit and/or counseling patient: - Subjective Interval history: 77-year-old female past medical history of COPD, RA, hypertension who presented as a transfer from [place] [facility] due to acute pancreatitis demonstrated by CT and elevated lipase. She presented initially complaining of sudden epigastric abdominal pain with nausea and vomiting. Upon my examination she is alert and oriented times 3 in no acute distress on nasal cannula. She reports improvement and shortness of breath and wheezing. She reports she no longer has abdominal pain. She tolerated clear liquid diet well and believes that she is ready to start a soft diet. Her nurse reported yesterday she had diarrhea that tested negative for c.diff. The diarrhea is improving. She denies chest pain, nausea, vomiting, change in urination. - Constitutional Vitals: Temp Pulse Resp BP Pulse Ox 97.8 F 94 18 122/66 95 02/14/18 05:08 02/14/18 05:08 02/14/18 05:08 02/14/18 05:08 02/14/18 05:08 General appearance: Present: mild distress, A&O X 3, answers questions appropriately Exam: Gen.: Vitals noted. No acute distress. AAOx3 HEENT: oropharynx clear, Normocephalic, atraumatic Cardiac: RRR, no murmur, +S1/S2 Pulmonary: decreased breath sounds bilaterally, no wheezes, rales or rhonchi, equal chest expansion Abdomen: soft, minimal epigastric tender, Bowel sounds noted, no guarding MSK: no joint swelling noted Extremities: no BLE edema, nontender calf, no cyanosis or clubbing Neuro: A&Ox3, moves all extremities, no focal deficits Psych: Appropriate mood and behavior Internal Medicine: Result - Labs CBC & Chem 7: 02/14/18 03:09 02/14/18 03:09 Labs: Short CBC 02/14/18 Range/Units 03:09 WBC 9.3 (4.3-11.1) K/mcL Hgb 9.2 L (11.5-15.4) g/dL Hct 29.6 L (35.3-44.9) % Plt Count 121 L (140-400) K/mcL Neutrophils # 8.2 (1.6-8.9) K/mcL BMP 02/14/18 03:09 Sodium 140 Potassium 3.8 Chloride 107 Carbon Dioxide 28 BUN 21 Creatinine 0.62 Glucose 152 H Calcium 6.5 L - ABG Interpretation ABG results: ABG ABG pH 7.31 pH Units (7.32-7.45) L 02/11/18 11:02 ABG pCO2 42 mmHg (35-45) 02/11/18 11:02 ABG pO2 62 mmHg (85-104) L 02/11/18 11:02 ABG O2 Saturation 89 % (95-98) L 02/11/18 11:02 Consult Discharge Plan - Plan Referrals: Eliud Quinn MD [Partnered Physician] - 03/12/18 8:15 am Chau Cadena MD [Primary Care Provider] - 02/19/18 9:00 am <Quincy Zheng - Last Filed: 02/14/18 16:36> Date of Encounter: 02/14/18 - Assessment and plan (1) Acute pancreatitis Current Visit: No Status: Inactive Qualifiers: Pancreatitis type: unspecified pancreatitis type Acute pancreatitis complication: no infection or necrosis Qualified Code(s): K85.90 - Acute pancreatitis without necrosis or infection, unspecified (2) Acute renal failure Current Visit: No Status: Acute Qualifiers: Acute renal failure type: unspecified Qualified Code(s): N17.9 - Acute kidney failure, unspecified (3) Leukocytosis Current Visit: No Status: Acute Qualifiers: Leukocytosis type: leukemoid reaction Qualified Code(s): D72.823 - Leukemoid reaction (4) Rheumatoid arthritis Current Visit: No Status: Chronic Qualifiers: Rheumatoid arthritis location: unspecified site Rheumatoid factor presence : unspecified presence Qualified Code(s): M06.9 - Rheumatoid arthritis, unspecified (5) DVT prophylaxis Current Visit: No Status: Acute (6) Hypertension Current Visit: No Status: Acute Qualifiers: Qualified Code(s): I10 - Essential (primary) hypertension (7) Hypocalcemia Current Visit: No Status: Acute (8) Hypoxia Current Visit: No Status: Acute (9) COPD (chronic obstructive pulmonary disease) Current Visit: Yes Status: Acute Qualifiers: Qualified Code(s): J44.9 - Chronic obstructive pulmonary disease, unspecified (10) Diarrhea Current Visit: Yes Status: Acute Qualifiers: Qualified Code(s): R19.7 - Diarrhea, unspecified - Time Spent With Patient Total time spent is greater than 50% in coordination of care (as documented) at patient's floor/unit and/or counseling patient: - Constitutional Vitals: Temp Pulse Resp BP Pulse Ox 98.5 F 91 22 143/73 94 02/14/18 11:50 02/14/18 11:50 02/14/18 11:50 02/14/18 11:50 02/14/18 13:10 Internal Medicine: Result - Labs CBC & Chem 7: 02/14/18 03:09 02/14/18 03:09 Labs: Short CBC 02/14/18 Range/Units 03:09 WBC 9.3 (4.3-11.1) K/mcL Hgb 9.2 L (11.5-15.4) g/dL Hct 29.6 L (35.3-44.9) % Plt Count 121 L (140-400) K/mcL Neutrophils # 8.2 (1.6-8.9) K/mcL BMP 02/14/18 03:09 Sodium 140 Potassium 3.8 Chloride 107 Carbon Dioxide 28 BUN 21 Creatinine 0.62 Glucose 152 H Calcium 6.5 L - ABG Interpretation ABG results: ABG ABG pH 7.31 pH Units (7.32-7.45) L 02/11/18 11:02 ABG pCO2 42 mmHg (35-45) 02/11/18 11:02 ABG pO2 62 mmHg (85-104) L 02/11/18 11:02 ABG O2 Saturation 89 % (95-98) L 02/11/18 11:02 - Attending Attestation I performed a history and physical examination of the patient and discussed his/ her management with the resident. I reviewed the residents note and agree with the documented findings and plan of care.
[2018-02-14] MEDS: Budesonide/Formoterol 160/4.5 MDI IH SCH ×2 (10:09→21:22)
--- NOTE | 2018-02-14 10:24 | Pulmonology Progress Note ---
Date of Encounter: 02/14/18 Time of Encounter: 10:24 Assessment and Plan (1) Acute respiratory failure Current Visit: Yes Status: Acute This is suspected secondary to hydrostatic pulmonary edema from volume overload coupled with atelectasis from splinting secondary to abdominal pain. She does have a history of underlying COPD but I see no evidence that this is acutely exacerbated. Overall acceptable oxygenation today on nasal cannula. She will benefit from diuresis as tolerated by blood pressure and renal function. Also encouraged patient to use incentive spirometry out of bed to chair and early ambulation is tolerated to help mitigate the effects of VQ mismatching from atelectasis. Qualifiers: Respiratory failure complication: hypoxia Qualified Code(s): J96.01 - Acute respiratory failure with hypoxia (2) Acute pancreatitis Current Visit: No Status: Resolved Overall this appears to be improving. Management per primary medicine service Pulmonary we will sign off please call with any questions Qualifiers: Pancreatitis type: unspecified pancreatitis type Acute pancreatitis complication: unspecified Qualified Code(s): K85.90 - Acute pancreatitis without necrosis or infection, unspecified Subjective Principal diagnosis: Acute pancreatitis Interval history: No acute events overnight. The patient says that she is starting to feel a bit improved. She still having some labored breathing but has been able to be taken off BiPAP support and has acceptable oxygenation on nasal cannula O2. Objective PUL Vital signs: Last Vital Signs Temp 98.3 F 02/14/18 09:30 Pulse 100 02/14/18 09:30 Resp 17 02/14/18 10:09 BP 146/70 02/14/18 09:30 Pulse Ox 92 02/14/18 10:09 General appearance: no acute distress Auscultation: bilateral: rales Cardiovascular: regular rate and rhythm Gastrointestinal: tender Extremities: edema mood appropriate Results - Laboratory Findings CBC and BMP: 02/14/18 03:09 02/14/18 03:09 ABG ABG pH 7.31 pH Units (7.32-7.45) L 02/11/18 11:02 ABG pCO2 42 mmHg (35-45) 02/11/18 11:02 ABG pO2 62 mmHg (85-104) L 02/11/18 11:02 ABG O2 Saturation 89 % (95-98) L 02/11/18 11:02 Abnormal lab findings: Abnormal lab results RBC 3.10 M/mcL (3.82-4.97) L 02/14/18 03:09 Hgb 9.2 g/dL (11.5-15.4) L 02/14/18 03:09 Hct 29.6 % (35.3-44.9) L 02/14/18 03:09 MCHC 31.1 g/dL (31.6-35.5) L 02/14/18 03:09 RDW 16.8 % (11.5-14.5) H 02/14/18 03:09 Plt Count 121 K/mcL (140-400) L 02/14/18 03:09 Nucleated RBCs/100 WBC 0.8 /100 WBC (0) H 02/14/18 03:09 Smudge Cells Present (Not Present) A 02/12/18 04:20 Platelet Estimate Slight Decrease (Normal) L 02/12/18 04:20 Polychromasia 1+ (Not Present) A 02/11/18 04:48 Basophilic Stippling 2+ (Not Present) A 02/11/18 12:00 Anisocytosis 1+ (Not Present) A 02/12/18 04:20 Macrocytosis Present (Not Present) A 02/10/18 05:18 ABG pH 7.31 pH Units (7.32-7.45) L 02/11/18 11:02 ABG pO2 62 mmHg (85-104) L 02/11/18 11:02 ABG O2 Saturation 89 % (95-98) L 02/11/18 11:02 ABG Base Excess -5 mEq/L (-2 to 3) L 02/11/18 11:02 VBG pH 7.17 pH Units (7.32-7.42) L* 02/11/18 05:07 VBG pCO2 53 mmHg (41-51) H 02/11/18 05:07 VBG pO2 80 mmHg (25-50) H 02/11/18 05:07 VBG HCO3 19 mEq/L (21-27) L 02/11/18 05:07 BUN/Creatinine Ratio 34 (6-26) H 02/14/18 03:09 Glucose 152 mg/dL (70-105) H 02/14/18 03:09 POC Glucose 146 mg/dL (70-99) H 02/14/18 00:42 Calcium 6.5 mg/dL (8.6-10.3) L 02/14/18 03:09 Venous Ioniz Calcium 0.82 mmol/L (1.15-1.35) L 02/10/18 10:18 Magnesium 1.5 mg/dL (1.6-2.6) L 02/09/18 05:37 Creatine Kinase 1305 Units/L (30-223) H 02/11/18 16:30 Serum Total Protein 5.0 g/dL (6.4-8.9) L 02/12/18 04:20 Albumin 2.8 g/dL (3.5-5.7) L 02/12/18 04:20 Globulin 2.2 g/dL (2.4-3.5) L 02/12/18 04:20 HDL Cholesterol 62 mg/dL (40-59) H 02/09/18 05:37 Urine Protein 30 mg/dL (Neg-Trace) H 02/11/18 15:51 Urine Ketones 15 mg/dL (Negative) H 02/11/18 15:51 Urine Blood Small (Negative) H 02/11/18 15:51 Ur Leukocyte Esterase Trace (Negative) H 02/11/18 15:51 Ur Culture Indicated? YES (NO) A 02/11/18 15:51 - Microbiology Findings Microbiology Findings: Microbiology, Last 48 Hours 02/11/18 15:51 Urine Culture - Final Urine,Clean Catch No growth. - Clinical Findings Intake & Output: Intake & Output 02/13/18 02/14/18 02/14/18 23:59 07:59 15:59 Intake Total 320 / 320 200 / 200 Output Total 550 / 550 650 / 650 Balance -230 / -230 -450 / -450 Consult Discharge Plan - Plan Referrals: Eliud Quinn MD [Partnered Physician] - 03/12/18 8:15 am Chau Cadena MD [Primary Care Provider] - 02/19/18 9:00 am
[2018-02-14] MEDS ORDERED: Furosemide 40 MG/4 ML VIAL IVP ONE (15:22)
[2018-02-15] MEDS: methylPREDNISolone 125 MG/2 ML VIAL IVP SCH ×3 (00:19→17:17)
[2018-02-15] MEDS: MetroNIDAZOLE 500 MG/100 ML 500 MG/100 ML BAG IVPB SCH ×2 (00:19→08:41)
[2018-02-15] MEDS: Levalbuterol Neb 1.25 MG/3 ML IH SCH ×4 (03:38→21:31)
[2018-02-15 04:45] LABS: Hematocrit 31.6 % (35.3-44.9); Hemoglobin 9.9 g/dL (11.5-15.4); Mean Corpuscular HGB Conc 31.3 g/dL (31.6-35.5); Mean Corpuscular Volume 95.8 fL (83.0-100.0); Mean Platelet Volume 10.8 fL (9.4-12.4); Nucleated Red Blood Cells 0.9 /100 WBC (0); Platelet Count 159 K/mcL (140-400); Red Cell Distribution Width 16.7 % (11.5-14.5)
[2018-02-15 05:14] LABS: Lymphocytes # 1.5 K/mcL (0.6-4.6); Neutrophils # 9.3 K/mcL (1.6-8.9); Platelet Estimate Normal (Normal); Reactive Lymphocytes Present (Not Present)
[2018-02-15 05:28] LABS: BUN/Creatinine Ratio 37 (6-26); Blood Urea Nitrogen 25 mg/dL (8-23); Calcium 7.1 mg/dL (8.6-10.3); Carbon Dioxide 29 mEq/L (23-29); Chloride 108 mEq/L (98-107); Glucose 226 mg/dL (70-105); Osmolality,Calculated 305 (280-300); Potassium 3.9 mEq/L (3.5-5.1); Sodium 142 mEq/L (136-145); eGFR For African Americans > 60 (> 60); eGFR For Non-African Americans > 60 (> 60)
[2018-02-15] MEDS: *HR* Heparin 5,000 UNIT/ML VIAL SQ SCH ×2 (06:45→17:18)
--- NOTE | 2018-02-15 08:21 | Internal Med Progress Note ---
<Janel Yu - Last Filed: 02/15/18 13:24> Date of Encounter: 02/15/18 Time of Encounter: 08:21 - Assessment and plan (1) Acute pancreatitis Current Visit: No Status: Inactive Assessment and plan: Patient has acute pancreatitis demonstrated by CT abdomen and elevated lipase. She had sudden onset abdominal pain with nausea and vomiting. Liver ultrasound demonstrated cholelithiasis with no evidence of acute cholecystitis. No alcohol use. No history of pancreatitis. Lipid panel WNL, calcium. Lipase 84 (>1800) afebrile WBC 10.8 (25.6) -MRCP demonstrated pleural effusions, ascites, anasarca. No CBD obstruction. -Gastroenterology recommends pain control and IV fluids since no CBD obstruction. Also recommend surgery consultation for possible cholecystectomy once stable. -High risk due to Reynold criteria 7 -patient is clinically improving. She reports abdominal pain has resolved. Abdominal exam is soft, minimally tender, bowel sounds present, non-peritoneal. -Tolerated soft diet yesterday, transition to regular diet today -Zofran for nausea -Cipro and Flagyl Day 7. Will stop antibiotics today -Surgery will follow up outpatient in 4-6 weeks to discuss cholecystectomy patient is stable from ТАТЬЯНА and pancreatitis. Appointment is on 03/12/2018 at 8: 20 AM per surgery note. -hold fluids due to pleural effusions and hypoxia, give fluids if hypotensive -Marianna and/or oxycodone for pain Qualifiers: Pancreatitis type: unspecified pancreatitis type Acute pancreatitis complication: no infection or necrosis Qualified Code(s): K85.90 - Acute pancreatitis without necrosis or infection, unspecified (2) Hypoxia Current Visit: No Status: Acute Assessment and plan: Improving. Likely secondary to fluid overload due to treatment with IVF for pancreatitis. Along with splinting due to abdominal pain. Atelectasis CXR 02/10/2018: small pleural effusions with associated airspace disease indicating atelectasis vs pneumonia CXR 02/13/2018: stable by basilar airspace disease and left pleural effusion nasal cannula SPO2 95 -patient reports improvement of shortness of breath and wheezing - Improved from yesterday. Decreased breath sounds bilaterally with left sided rales at bases. -pulmonology consulted and recommendations are appreciated. -possible d/c tomorrow as we wean oxygen -incentive spirometry, encouraged ambulation today, PT/OT to evaluate patient -Supplemental oxygen as needed -will give Lasix -Solu-Medrol day 3 (3) Acute renal failure Current Visit: No Status: Acute Assessment and plan: Resolved Acute renal failure in setting of nausea, vomiting, dehydration. Also secondary to recent CT scan with contrast. Most likely prerenal. Cr 0.67 (1.59) improving I/O: 32140/62832 Balance -923. Appropriate urine output renal ultrasound demonstrating normal kidneys and bladder -d/c lux cath -monitor Scr -avoid nephrotoxic agents -consult nephrology about treatment of ТАТЬЯНА, recommendations are appreciated. Nephrology recommends avoid nephrotoxic Qualifiers: Acute renal failure type: unspecified Qualified Code(s): N17.9 - Acute kidney failure, unspecified (4) Leukocytosis Current Visit: No Status: Acute Assessment and plan: Resolved WBC 10.8 (25.6), most likely secondary to acute pancreatitis and dehydration. Liver ultrasound demonstrated cholelithiasis without cholecystitis. -Patient was empirically treated with Cipro and Flagyl Day 7. Will stop Antibiotics today Qualifiers: Leukocytosis type: leukemoid reaction Qualified Code(s): D72.823 - Leukemoid reaction (5) Hypocalcemia Current Visit: No Status: Acute Assessment and plan: Patient takes calcium supplements b.i.d. at home for hypocalcemia Calcium 7.1 improving -supplement calcium today and as needed -restart patient home calcium supplements -will continue to monitor (6) Hypertension Current Visit: No Status: Acute Assessment and plan: History of hypertension controlled with lisinopril. blood pressure stable will hold home medications due to variable blood pressure Qualifiers: Qualified Code(s): I10 - Essential (primary) hypertension (7) Rheumatoid arthritis Current Visit: No Status: Chronic Assessment and plan: Continue follow-up as outpatient -holding home medications Qualifiers: Rheumatoid arthritis location: unspecified site Rheumatoid factor presence : unspecified presence Qualified Code(s): M06.9 - Rheumatoid arthritis, unspecified (8) COPD (chronic obstructive pulmonary disease) Current Visit: Yes Status: Acute Assessment and plan: History of COPD. -continue symbicort -xopenex -requiring supplemental oxygen and BiPAP Qualifiers: Qualified Code(s): J44.9 - Chronic obstructive pulmonary disease, unspecified (9) DVT prophylaxis Current Visit: No Status: Acute Assessment and plan: Heparin subcutaneously (10) Diarrhea Current Visit: Yes Status: Acute Assessment and plan: Her nurse reported diarrhea 4x yesterday that was liquid. She tested C.diff negative. She is on flagyl which is likely cause. -gave imodium and diarrhea is improving Qualifiers: Qualified Code(s): R19.7 - Diarrhea, unspecified - Time Spent With Patient Total time spent is greater than 50% in coordination of care (as documented) at patient's floor/unit and/or counseling patient: - Subjective Interval history: 77-year-old female past medical history of COPD, RA, hypertension who presented as a transfer from [facility] due to acute pancreatitis demonstrated by CT and elevated lipase. She presented initially complaining of sudden epigastric abdominal pain with nausea and vomiting. Upon my examination she is alert and oriented times 3 in no acute distress on nasal cannula. She reports improvement and shortness of breath and wheezing. She reports she no longer has abdominal pain. She tolerated soft diet yesterday and will be transitioned to regular diet today. She is still having diarrhea but it is improving. She denies chest pain, nausea, vomiting, change in urination. - Constitutional Vitals: Temp Pulse Resp BP Pulse Ox 98.2 F 83 20 156/79 94 02/15/18 07:58 02/15/18 07:58 02/15/18 07:58 02/15/18 07:58 02/15/18 07:58 General appearance: Present: mild distress, A&O X 3, answers questions appropriately Exam: Gen.: Vitals noted. No acute distress. AAOx3 HEENT: oropharynx clear, Normocephalic, atraumatic Cardiac: RRR, no murmur, +S1/S2 Pulmonary: CTA bilaterally with rales, no wheezes rhonchi, equal chest expansion Abdomen: soft, nontender, Bowel sounds noted, no guarding MSK: ROM intact, no joint swelling noted Extremities: no BLE edema, nontender calf, no cyanosis or clubbing Neuro: A&Ox3, moves all extremities, no focal deficits Psych: Appropriate mood and behavior Internal Medicine: Result - Labs CBC & Chem 7: 02/15/18 04:09 02/15/18 04:09 Labs: Short CBC 02/15/18 Range/Units 04:09 WBC 10.8 (4.3-11.1) K/mcL Hgb 9.9 L (11.5-15.4) g/dL Hct 31.6 L (35.3-44.9) % Plt Count 159 (140-400) K/mcL Neutrophils # 9.3 H (1.6-8.9) K/mcL BMP 02/15/18 04:09 Sodium 142 Potassium 3.9 Chloride 108 H Carbon Dioxide 29 BUN 25 H Creatinine 0.67 Glucose 226 H Calcium 7.1 L - ABG Interpretation ABG results: ABG ABG pH 7.31 pH Units (7.32-7.45) L 02/11/18 11:02 ABG pCO2 42 mmHg (35-45) 02/11/18 11:02 ABG pO2 62 mmHg (85-104) L 02/11/18 11:02 ABG O2 Saturation 89 % (95-98) L 02/11/18 11:02 Consult Discharge Plan - Plan Referrals: Eliud Quinn MD [Partnered Physician] - 03/12/18 8:15 am Chau Cadena MD [Primary Care Provider] - 02/19/18 9:00 am <Quincy Zheng - Last Filed: 02/15/18 17:06> Date of Encounter: 02/15/18 - Assessment and plan (1) Acute pancreatitis Current Visit: No Status: Inactive Qualifiers: Pancreatitis type: unspecified pancreatitis type Acute pancreatitis complication: no infection or necrosis Qualified Code(s): K85.90 - Acute pancreatitis without necrosis or infection, unspecified (2) Acute renal failure Current Visit: No Status: Acute Qualifiers: Acute renal failure type: unspecified Qualified Code(s): N17.9 - Acute kidney failure, unspecified (3) Leukocytosis Current Visit: No Status: Acute Qualifiers: Leukocytosis type: leukemoid reaction Qualified Code(s): D72.823 - Leukemoid reaction (4) Rheumatoid arthritis Current Visit: No Status: Chronic Qualifiers: Rheumatoid arthritis location: unspecified site Rheumatoid factor presence : unspecified presence Qualified Code(s): M06.9 - Rheumatoid arthritis, unspecified (5) DVT prophylaxis Current Visit: No Status: Acute (6) Hypertension Current Visit: No Status: Acute Qualifiers: Qualified Code(s): I10 - Essential (primary) hypertension (7) Hypocalcemia Current Visit: No Status: Acute (8) Hypoxia Current Visit: No Status: Acute (9) COPD (chronic obstructive pulmonary disease) Current Visit: Yes Status: Acute Qualifiers: Qualified Code(s): J44.9 - Chronic obstructive pulmonary disease, unspecified (10) Diarrhea Current Visit: Yes Status: Acute Qualifiers: Qualified Code(s): R19.7 - Diarrhea, unspecified - Time Spent With Patient Total time spent is greater than 50% in coordination of care (as documented) at patient's floor/unit and/or counseling patient: - Constitutional Vitals: Temp Pulse Resp BP Pulse Ox 97.8 F 85 18 157/97 99 02/15/18 11:45 02/15/18 15:55 02/15/18 16:08 02/15/18 11:45 02/15/18 16:08 Internal Medicine: Result - Labs CBC & Chem 7: 02/15/18 04:09 02/15/18 04:09 Labs: Short CBC 02/15/18 Range/Units 04:09 WBC 10.8 (4.3-11.1) K/mcL Hgb 9.9 L (11.5-15.4) g/dL Hct 31.6 L (35.3-44.9) % Plt Count 159 (140-400) K/mcL Neutrophils # 9.3 H (1.6-8.9) K/mcL BMP 02/15/18 04:09 Sodium 142 Potassium 3.9 Chloride 108 H Carbon Dioxide 29 BUN 25 H Creatinine 0.67 Glucose 226 H Calcium 7.1 L - ABG Interpretation ABG results: ABG ABG pH 7.31 pH Units (7.32-7.45) L 02/11/18 11:02 ABG pCO2 42 mmHg (35-45) 02/11/18 11:02 ABG pO2 62 mmHg (85-104) L 02/11/18 11:02 ABG O2 Saturation 89 % (95-98) L 02/11/18 11:02 - Attending Attestation I performed a history and physical examination of the patient and discussed his/ her management with the resident. I reviewed the residents note and agree with the documented findings and plan of care.
[2018-02-15] MEDS ORDERED: Furosemide 40 MG/4 ML VIAL IVP ONE (08:22)
[2018-02-15 09:24] LABS: Phosphorous 1.4 mg/dL (2.7-4.5)
[2018-02-15] MEDS: Budesonide/Formoterol 160/4.5 MDI IH SCH ×2 (11:20→21:31)
[2018-02-15] MEDS ORDERED: *HR* Dextrose 50 % in Water (Syg) 50 ML SYRINGE IVP PRN (12:34)
[2018-02-15] MEDS ORDERED: Dextrose Gel 15 GM/37.5 ML TUBE PO PRN ×2 (12:34)
[2018-02-15] MEDS ORDERED: D5% in Water 1,000 ML IVC PRN (12:34)
[2018-02-15] MEDS ORDERED: Furosemide 40 MG TABLET PO ONE (16:30)
[2018-02-15] MEDS: Insulin LISPRO 300 UNITS/3 ML VIAL SQ SCH ×2 (17:18→20:08)
[2018-02-15] MEDS: Dexmedetomidine HCl 400 MCG/100 ML MLS IVC SCH (19:52)
[2018-02-16] MEDS: Levalbuterol Neb 1.25 MG/3 ML IH SCH ×4 (04:26→21:40)
[2018-02-16 05:43] LABS: Hematocrit 35.4 % (35.3-44.9); Hemoglobin 11.1 g/dL (11.5-15.4); Mean Corpuscular HGB Conc 31.4 g/dL (31.6-35.5); Mean Corpuscular Hemoglobin 30.1 pg (28.0-33.3); Mean Corpuscular Volume 95.9 fL (83.0-100.0); Mean Platelet Volume 10.7 fL (9.4-12.4); Nucleated Red Blood Cells 1.2 /100 WBC (0); Platelet Count 197 K/mcL (140-400); Red Blood Count 3.69 M/mcL (3.82-4.97); Red Cell Distribution Width 16.9 % (11.5-14.5)
[2018-02-16 06:00] LABS: BUN/Creatinine Ratio 36 (6-26); Blood Urea Nitrogen 25 mg/dL (8-23); Calcium 7.2 mg/dL (8.6-10.3); Carbon Dioxide 29 mEq/L (23-29); Chloride 105 mEq/L (98-107); Glucose 250 mg/dL (70-105); Osmolality,Calculated 309 (280-300); Potassium 3.9 mEq/L (3.5-5.1); Sodium 143 mEq/L (136-145); eGFR For African Americans > 60 (> 60); eGFR For Non-African Americans > 60 (> 60)
[2018-02-16] MEDS: *HR* Heparin 5,000 UNIT/ML VIAL SQ SCH ×2 (06:13→17:30)
[2018-02-16 06:42] LABS: Lymphocytes # 1.6 K/mcL (0.6-4.6); Monocytes # 0.6 K/mcL (0.0-1.3)
[2018-02-16 06:43] LABS: Neutrophils # 13.4 K/mcL (1.6-8.9); Platelet Estimate Normal (Normal)
[2018-02-16] MEDS: Insulin LISPRO 300 UNITS/3 ML VIAL SQ SCH ×4 (07:54→22:31)
[2018-02-16] MEDS: predniSONE 20 MG TABLET PO SCH (07:55)
[2018-02-16] MEDS: Budesonide/Formoterol 160/4.5 MDI IH SCH ×2 (10:44→21:40)
[2018-02-16] MEDS ORDERED: *HR* Metoprolol 5 MG/5 ML VIAL IVP ONE (11:43)
--- NOTE | 2018-02-16 15:48 | Internal Med Progress Note ---
Date of Encounter: 02/16/18 Time of Encounter: 15:44 - Assessment and plan (1) Acute pancreatitis Current Visit: Yes Status: Acute Assessment and plan: Acute pancreatitis. Etiology uncertain but she did have cholelithiasis on ultrasound. Surgery recommended outpatient evaluation to discuss laparoscopic cholecystectomy in 4-6 weeks. Clinically she does not have any abdominal pain. Tolerating diet well. Qualifiers: Pancreatitis type: idiopathic Acute pancreatitis complication: no infection or necrosis Qualified Code(s): K85.00 - Idiopathic acute pancreatitis without necrosis or infection (2) Acute renal failure Current Visit: Yes Status: Resolved Assessment and plan: Renal function has returned to baseline. Creatinine is 0.69 today. Qualifiers: Acute renal failure type: unspecified Qualified Code(s): N17.9 - Acute kidney failure, unspecified (3) Leukocytosis Current Visit: Yes Status: Acute Assessment and plan: WBC count 16 today. Likely related to steroid use. She did complete antibiotic course yesterday. Qualifiers: Leukocytosis type: leukemoid reaction Qualified Code(s): D72.823 - Leukemoid reaction (4) Rheumatoid arthritis Current Visit: No Status: Chronic Assessment and plan: Could be contributing to overall weakness and difficulty walking. Continue home medications. Placement to skilled rehabilitation for physical therapy. Qualifiers: Rheumatoid arthritis location: unspecified site Rheumatoid factor presence : unspecified presence Qualified Code(s): M06.9 - Rheumatoid arthritis, unspecified (5) Hypertension Current Visit: Yes Status: Acute Assessment and plan: Uncontrolled. Blood pressure elevated today. Apparently she felt cold and chilly yesterday when she received hydralazine. As such she received Lopressor this afternoon with improvement in blood pressure. We will resume her Zestril now that her renal function has normalized. Continue to monitor blood pressure closely. Qualifiers: Hypertension type: essential hypertension Qualified Code(s): I10 - Essential (primary) hypertension (6) DVT prophylaxis Current Visit: Yes Status: Acute Assessment and plan: Continue subcutaneous heparin (7) Hypocalcemia Current Visit: No Status: Acute Assessment and plan: Improving. 7.2 today. Continue oral calcium supplements (8) Hypoxia Current Visit: No Status: Acute (9) COPD (chronic obstructive pulmonary disease) Current Visit: Yes Status: Acute Assessment and plan: On prednisone. On bronchodilators. Symptoms are improving. On 2 L nasal cannula. We will taper steroids. Qualifiers: COPD type: COPD with acute exacerbation Qualified Code(s): J44.1 - Chronic obstructive pulmonary disease with (acute) exacerbation (10) Diarrhea Current Visit: Yes Status: Acute Assessment and plan: Likely related to antibiotic use. Stool for C. difficile negative. We will place her on lactobacillus. Qualifiers: Qualified Code(s): R19.7 - Diarrhea, unspecified - Time Spent With Patient Total time spent is greater than 50% in coordination of care (as documented) at patient's floor/unit and/or counseling patient: - Subjective Interval history: Patient seen earlier this morning. Was awake and alert. Appears anxious but denies anxiety. Denies any chest pain. Feels bloated in her abdomen. Has been having bowel movements. Denies any hematochezia or hematemesis. No nausea or vomiting. No headaches. Patient does report generalized weakness since hospitalization here. She has not been up on her own and has been having difficulty walking even with physical therapy. - Constitutional Vitals: Temp Pulse Resp BP Pulse Ox 98.3 F 96 17 152/64 93 02/16/18 11:00 02/16/18 13:19 02/16/18 13:19 02/16/18 13:19 02/16/18 13:19 General appearance: Present: cooperative, A&O X 3, pleasant, no acute distress, answers questions appropriately - Neck Neck exam general surgery: Present: supple, trachea midline. Absent: lymphadenopathy - Respiratory Respiratory exam: Present: CTAB. Absent: accessory muscle use, rales, rhonchi, wheezes - Cardiovascular Cardiovascular exam: Present: RRR, +S1, +S2, tachycardia. Absent: diastolic murmur, gallop, rubs, systolic murmur - GI/Abdominal GI/Abdominal exam: Present: normal bowel sounds, soft, no peritoneal signs. Absent: distended, tenderness - Extremities Exam Extremities exam: Present: warm, radial pulses palpable and symmetrical. Absent : calf tenderness, cyanotic, pedal edema - Neurological Exam Neurological exam: Present: alert, oriented X3, no focal deficits. Absent: facial droop, speech deficit Internal Medicine: Result - Labs CBC & Chem 7: 02/16/18 04:20 02/16/18 04:20 Labs: Short CBC 02/16/18 Range/Units 04:20 WBC 16.0 H (4.3-11.1) K/mcL Hgb 11.1 L (11.5-15.4) g/dL Hct 35.4 (35.3-44.9) % Plt Count 197 (140-400) K/mcL Neutrophils # 13.4 H (1.6-8.9) K/mcL BMP 02/16/18 04:20 Sodium 143 Potassium 3.9 Chloride 105 Carbon Dioxide 29 BUN 25 H Creatinine 0.69 Glucose 250 H Calcium 7.2 L - ABG Interpretation ABG results: ABG ABG pH 7.31 pH Units (7.32-7.45) L 02/11/18 11:02 ABG pCO2 42 mmHg (35-45) 02/11/18 11:02 ABG pO2 62 mmHg (85-104) L 02/11/18 11:02 ABG O2 Saturation 89 % (95-98) L 02/11/18 11:02 - VTE Documentation of Mechanical Device: Intermittent pneumatic compression device Consult Discharge Plan - Plan Referrals: Eliud Quinn MD [Partnered Physician] - 03/12/18 8:15 am Chau Cadena MD [Primary Care Provider] - 02/19/18 9:00 am
[2018-02-16] MEDS ORDERED: Furosemide 40 MG/4 ML VIAL IVP ONE (16:04)
[2018-02-16] MEDS: Lactobacillus 1 EACH CAP.SPRINK PO SCH (20:14)
[2018-02-17] MEDS: Levalbuterol Neb 1.25 MG/3 ML IH SCH ×4 (04:14→21:47)
[2018-02-17 04:48] LABS: Basophils # 0.1 K/mcL (0.0-0.2); Basophils % 0.3 %; Eosinophils % 0.1 %; Hematocrit 33.9 % (35.3-44.9); Hemoglobin 10.8 g/dL (11.5-15.4); Immature Granulocytes % 3.1 % (0-4); Lymphocytes # 2.3 K/mcL (0.6-4.6); Lymphocytes % 12.9 %; Mean Corpuscular HGB Conc 31.9 g/dL (31.6-35.5); Mean Corpuscular Volume 94.2 fL (83.0-100.0); Mean Platelet Volume 10.6 fL (9.4-12.4); Monocytes # 1.1 K/mcL (0.0-1.3); Monocytes % 6.4 %; Neutrophils # 13.6 K/mcL (1.6-8.9); Nucleated Red Blood Cells 0.7 /100 WBC (0); Platelet Count 179 K/mcL (140-400); Red Cell Distribution Width 17.2 % (11.5-14.5); Segmented Neutrophils % 77.2 %
[2018-02-17 05:06] LABS: BUN/Creatinine Ratio 32 (6-26); Blood Urea Nitrogen 20 mg/dL (8-23); Calcium 6.9 mg/dL (8.6-10.3); Carbon Dioxide 32 mEq/L (23-29); Chloride 106 mEq/L (98-107); Glucose 151 mg/dL (70-105); Osmolality,Calculated 306 (280-300); Potassium 3.5 mEq/L (3.5-5.1); Sodium 145 mEq/L (136-145); eGFR For African Americans > 60 (> 60); eGFR For Non-African Americans > 60 (> 60)
[2018-02-17] MEDS: *HR* Heparin 5,000 UNIT/ML VIAL SQ SCH ×2 (06:48→17:19)
[2018-02-17] MEDS: Insulin LISPRO 300 UNITS/3 ML VIAL SQ SCH ×4 (08:17→20:27)
[2018-02-17] MEDS: predniSONE 20 MG TABLET PO SCH (08:17)
[2018-02-17] MEDS: Lactobacillus 1 EACH CAP.SPRINK PO SCH ×2 (08:17→20:26)
[2018-02-17] MEDS: Budesonide/Formoterol 160/4.5 MDI IH SCH ×2 (10:59→21:47)
--- NOTE | 2018-02-17 14:44 | Discharge Summary ---
- NOTES TO OUTPATIENT PROVIDER Notes to Outpatient Provider: Patient admitted with acute pancreatitis and acute renal failure. Patient does have cholelithiasis and is recommended outpatient laparoscopic cholecystectomy. She was also treated for acute on chronic respiratory failure and COPD. She is now doing better overall. Will be discharged to skilled rehabilitation facility. Orders not resulted at time of discharge: Pending orders 02/10/18 07:30 Ionized Calcium,venous blood Routine Date of Encounter: 02/17/18 Time of Encounter: 11:00 - Discharge Diagnosis (1) Acute pancreatitis Priority: Primary Status: Acute Qualifiers: Pancreatitis type: idiopathic Acute pancreatitis complication: no infection or necrosis Qualified Code(s): K85.00 - Idiopathic acute pancreatitis without necrosis or infection (2) Acute renal failure Priority: Secondary Status: Resolved Qualifiers: Acute renal failure type: unspecified Qualified Code(s): N17.9 - Acute kidney failure, unspecified (3) Leukocytosis Priority: Secondary Status: Acute Qualifiers: Leukocytosis type: leukemoid reaction Qualified Code(s): D72.823 - Leukemoid reaction (4) Rheumatoid arthritis Priority: Secondary Status: Chronic Qualifiers: Rheumatoid arthritis location: unspecified site Rheumatoid factor presence : unspecified presence Qualified Code(s): M06.9 - Rheumatoid arthritis, unspecified (5) Hypertension Priority: Secondary Status: Chronic Qualifiers: Hypertension type: essential hypertension Qualified Code(s): I10 - Essential (primary) hypertension (6) DVT prophylaxis Priority: Secondary Status: Acute (7) Hypocalcemia Priority: Secondary Status: Acute (8) Hypoxia Priority: Secondary Status: Acute (9) COPD (chronic obstructive pulmonary disease) Priority: Secondary Status: Acute Qualifiers: COPD type: COPD with acute exacerbation Qualified Code(s): J44.1 - Chronic obstructive pulmonary disease with (acute) exacerbation (10) Diarrhea Priority: Secondary Status: Acute Qualifiers: Diarrhea type: functional diarrhea Qualified Code(s): K59.1 - Functional diarrhea Hospital course: Ms. Og is a 77 year old female patient with history of COPD, hypertension, rheumatoid arthritis and osteoporosis who was admitted here with acute pancreatitis and acute renal failure after presenting to the ER at [facility] with complaints of abdominal pain, vomiting. She was treated with IV fluids. Kept nothing by mouth initially. Underwent MRCP which did not show any obstruction. Patient does have cholelithiasis and was recommended outpatient laparoscopic cholecystectomy. Her pancreatitis symptoms improved with conservative management and she is no longer having abdominal pain. She is tolerating oral diet well. She did receive IV antibiotics initially and has completed antibiotic course. She was also treated for acute on chronic respiratory failure and COPD. she is doing much better overall. She is clinically stable for discharge from a medical standpoint. She remains weak and was recommended placement for skilled rehabilitation. She will be discharged to skilled rehabilitation once she is accepted there. Discharge discussed with: patient, nurse, social work - Time Spent with Patient Total time spent providing and/or coordinating discharge services: Greater than 30 minutes (35 min) - Discharge Medications Prescriptions: Budesonide/Formoterol 160/4.5 [Symbicort 160/4.5] 2 puff IH BIDR #1 inhaler Cholecalciferol (Vitamin D3) [Vitamin D] 1,000 unit PO DAILY #30 capsule predniSONE [PredniSONE] 10 mg PO DAILY 6 Days tablet Home Medications: Denosumab [Prolia (For Outpatient Infusion)] 60 mg IJ Q6M 06/01/17 [History] Lisinopril [Zestril] 10 mg PO DAILY 06/01/17 [History] Hydroxychloroquine [Plaquenuil] 300 mg PO [id number] 07/17/17 [History] Sulfasalazine [Azulfidine] 1,000 mg PO BID 07/17/17 [History] Folic Acid 1 mg PO DAILY #30 tablet 01/18/18 [Rx] Adalimumab [Humira] 40 mg SQ Q2W 02/08/18 [History] Ferrous Sulfate [Iron] 325 mg PO BID 02/08/18 [History] Hydroxychloroquine [Plaquenuil] 400 mg PO SUSA 02/09/18 [History] Budesonide/Formoterol 160/4.5 [Symbicort 160/4.5] 2 puff IH BIDR #1 inhaler 12/06 [Rx] Calcium Carbonate [Tums] 1,000 mg PO BID #0 tab.chew 02/17/18 [Rx] Cholecalciferol (Vitamin D3) [Vitamin D] 1,000 unit PO DAILY #30 capsule [Rx] Lactobacillus [Culturelle] 1 each PO BID cap.sprink 02/17/18 [Rx] Loperamide [Imodium] 2 mg PO Q4HR PRN capsule 02/17/18 [Rx] predniSONE [PredniSONE] 10 mg PO DAILY 6 Days tablet 02/17/18 [Rx] Allergies/Adverse Reactions: 3 Allergy/AdvReac Type Severity Reaction Status Date / Time alendronate sodium Allergy Vomiting Verified 11/10/17 13:26 Penicillins [PCN] Allergy Anaphylaxis Verified 11/10/17 13:26 Date of admission: 02/08/18 21:52 Primary care physician: Chau Cadena MD Consults: 02/09/18 11:45 Consult to Gastroenterology [CONS] Routine Consulting Provider: [facility] Reason for Consult: acute pancreatitis demonstrated by abd CT. colelithiasis on U/S liver w/o cholecystitis Call Completed: No 02/10/18 12:24 Consult to Pulmonology [CONS] Routine Consulting Provider: [facility] Reason for Consult: Acute respiratory failure Call Completed: Yes 02/11/18 13:25 Consult to Nephrology [CONS] Routine Consulting Provider: [facility]/BRENDA/MILIND/CRISTAL Reason for Consult: ТАТЬЯНА most likely pre-renal in setting of acute pancreatitis. recs on tx of ТАТЬЯНА Call Completed: Yes 02/12/18 13:36 Consult to Surgery [CONS] Routine Consulting Provider: [facility] Reason for Consult: Acute pancreatitis. No obstruction on MRCP. Possible cholecystectomy Call Completed: Yes 02/14/18 08:12 Consult to Occupational Therapy [CONS] Routine Comment: Evaluate, develop and implement POC Reason for Consult: Work on Strength due to weakness Does patient have active BEDREST order?: No Is patient medically & hemodynamically stable?: Yes Consult to Physical Therapy [CONS] Routine Comment: Evaluate, develop and implement POC Reason for Consult: Work on Strength due to weakness Does patient have active BEDREST order?: No Is patient medically & hemodynamically stable?: Yes 02/14/18 19:02 Consult to Hot Iron Worker [CONS] Routine Reason for SW Consult: D/C PLANNING. FROM HOME. POSSIBLE NEED FOR HOME O2/ HOME HEALTH. Discharging clinician: Pema Early Anticipated date of discharge: 02/17/18 - Constitutional Vitals: Temp Pulse Resp BP Pulse Ox 98.3 F 105 23 138/64 88 02/17/18 11:28 02/17/18 11:28 02/17/18 11:28 02/17/18 11:28 02/17/18 11:28 General appearance: Present: cooperative, A&O X 3, pleasant, no acute distress, answers questions appropriately - Neck Neck exam general surgery: Present: supple, trachea midline. Absent: lymphadenopathy - Respiratory Respiratory exam: Present: prolonged expiratory phase. Absent: accessory muscle use, rales, rhonchi, wheezes - Cardiovascular Cardiovascular exam: Present: RRR, +S1, +S2. Absent: diastolic murmur, gallop, rubs, systolic murmur - GI/Abdominal GI/Abdominal exam: Present: normal bowel sounds, soft, no peritoneal signs. Absent: distended, tenderness - Extremities Exam Extremities exam: Present: warm, radial pulses palpable and symmetrical. Absent : calf tenderness, cyanotic, pedal edema - Neurological Exam Neurological exam: Present: CN II-XII intact, oriented X3, no focal deficits. Absent: facial droop, speech deficit - Skin Skin exam: Present: dry, intact - Patient Status Disposition: Transfer SNF Condition: Fair Functional capacity at discharge: bed bound Overall status at discharge: patient is progressing back to baseline - Discharge Instructions Instructions: Acute Respiratory Distress Syndrome (DC), Pancreatitis (DC), Acute Kidney Injury (DC), Chronic Obstructive Pulmonary Disease (DC) Follow Up With: Eliud Quinn MD [Partnered Physician] - 03/12/18 8:15 am Chau Cadena MD [Primary Care Provider] - 02/19/18 9:00 am - Diet and Activity Activity: increase activity as tolerated Diet: diabetic diet, low fat, low cholesterol, low salt diet - VTE Documentation of Mechanical Device: Intermittent pneumatic compression device
--- NOTE | 2018-02-17 14:53 | Physician Discharge Referral ---
ExtendedCare Referral Info Provider in Charge after Transfer: PCP Institutional Level of Care: Skilled - Diagnosis (1) Acute pancreatitis Priority: Primary Status: Acute (2) Acute renal failure Priority: Secondary Status: Resolved (3) Leukocytosis Priority: Secondary Status: Acute (4) Rheumatoid arthritis Priority: Secondary Status: Chronic (5) Hypertension Priority: Secondary Status: Chronic (6) DVT prophylaxis Priority: Secondary Status: Acute (7) Hypocalcemia Priority: Secondary Status: Acute (8) Hypoxia Priority: Secondary Status: Acute (9) COPD (chronic obstructive pulmonary disease) Priority: Secondary Status: Acute (10) Diarrhea Priority: Secondary Status: Acute Prognosis: Fair Aware of Diagnosis: Patient, Family Aware of Prognosis: Patient, Family - Transfer Medications Prescriptions: Budesonide/Formoterol 160/4.5 [Symbicort 160/4.5] 2 puff IH BIDR #1 inhaler Cholecalciferol (Vitamin D3) [Vitamin D] 1,000 unit PO DAILY #30 capsule predniSONE [PredniSONE] 10 mg PO DAILY 6 Days tablet Home Medications: Denosumab [Prolia (For Outpatient Infusion)] 60 mg IJ Q6M 06/01/17 [History] Lisinopril [Zestril] 10 mg PO DAILY 06/01/17 [History] Hydroxychloroquine [Plaquenuil] 300 mg PO MOTUWETHFR 07/17/17 [History] Sulfasalazine [Azulfidine] 1,000 mg PO BID 07/17/17 [History] Folic Acid 1 mg PO DAILY #30 tablet 01/18/18 [Rx] Adalimumab [Humira] 40 mg SQ Q2W 02/08/18 [History] Ferrous Sulfate [Iron] 325 mg PO BID 02/08/18 [History] Hydroxychloroquine [Plaquenuil] 400 mg PO SUSA 02/09/18 [History] Budesonide/Formoterol 160/4.5 [Symbicort 160/4.5] 2 puff IH BIDR #1 inhaler 12/06 [Rx] Calcium Carbonate [Tums] 1,000 mg PO BID #0 tab.chew 02/17/18 [Rx] Cholecalciferol (Vitamin D3) [Vitamin D] 1,000 unit PO DAILY #30 capsule [Rx] Lactobacillus [Culturelle] 1 each PO BID cap.sprink 02/17/18 [Rx] Loperamide [Imodium] 2 mg PO Q4HR PRN capsule 02/17/18 [Rx] predniSONE [PredniSONE] 10 mg PO DAILY 6 Days tablet 02/17/18 [Rx] Allergies/Adverse Reactions: 3 Allergy/AdvReac Type Severity Reaction Status Date / Time alendronate sodium Allergy Vomiting Verified 11/10/17 13:26 Penicillins [PCN] Allergy Anaphylaxis Verified 11/10/17 13:26 - Respiratory Orders Oxygen / L per min (2) Smoking Cessation: Smoking cessation has been advised. For more information, call the [place] Tobacco Quit Line at 3-835-XUNM-NOW. - Ancillary Orders May consult with Dentist, Formula Clerk, Associate Professor Of Theology PRN - Advance Directives Code Status: Full Code - Mobility Orders Other (per PT) - Rehabiliation Orders Rehab Potential: Fair Rehab Orders: Evaluation for Physical Therapy, Evaluation for Occupational Therapy - Diet Orders No Concentrated Sweets (diabetic), Cardiac CERTIFICATION: I certify that the transfer of the above named patient to an Extended Care Facility is necessary for the continuing treatment of the diagnosis listed. The above information is true and accurate reflection of patient's current condition. Confidential - Redisclosure prohibited without a patient's written consent.
[2018-02-18] MEDS: Levalbuterol Neb 1.25 MG/3 ML IH SCH ×2 (03:36→10:47)
[2018-02-18] MEDS: *HR* Heparin 5,000 UNIT/ML VIAL SQ SCH (05:04)
[2018-02-18] MEDS: Lactobacillus 1 EACH CAP.SPRINK PO SCH (07:55)
[2018-02-18] MEDS: Insulin LISPRO 300 UNITS/3 ML VIAL SQ SCH ×2 (07:56→12:10)
[2018-02-18] MEDS ORDERED: predniSONE 10 MG TABLET PO SCH (09:00)
[2018-02-18] MEDS: Budesonide/Formoterol 160/4.5 MDI IH SCH (10:47)
[2018-02-18 11:26] VITALS: BP 131/58
--- NOTE | 2018-02-18 11:42 | Internal Med Progress Note ---
Date of Encounter: 02/18/18 Time of Encounter: 11:40 - Assessment and plan (1) Acute pancreatitis Current Visit: Yes Status: Acute Assessment and plan: Resolved. Outpatient laparoscopic cholecystectomy. Follow up with surgery. Patient will be discharged to skilled rehabilitation today for physical therapy Qualifiers: Pancreatitis type: idiopathic Acute pancreatitis complication: no infection or necrosis Qualified Code(s): K85.00 - Idiopathic acute pancreatitis without necrosis or infection (2) Acute renal failure Current Visit: Yes Status: Resolved Qualifiers: Acute renal failure type: unspecified Qualified Code(s): N17.9 - Acute kidney failure, unspecified (3) Leukocytosis Current Visit: Yes Status: Acute Assessment and plan: Patient treated with antibiotics initially. Completed 7 day antibiotic course. Persistent leukocytosis likely related to steroid use. Should improve with tapering course of steroids. Qualifiers: Leukocytosis type: leukemoid reaction Qualified Code(s): D72.823 - Leukemoid reaction (4) Rheumatoid arthritis Current Visit: No Status: Chronic Qualifiers: Rheumatoid arthritis location: unspecified site Rheumatoid factor presence : unspecified presence Qualified Code(s): M06.9 - Rheumatoid arthritis, unspecified (5) Hypertension Current Visit: Yes Status: Chronic Assessment and plan: Well-controlled continue home medications Qualifiers: Hypertension type: essential hypertension Qualified Code(s): I10 - Essential (primary) hypertension (6) DVT prophylaxis Current Visit: Yes Status: Acute (7) Hypocalcemia Current Visit: No Status: Acute (8) Hypoxia Current Visit: No Status: Acute Assessment and plan: Continue O2 supplementation to keep sats greater than 88% (9) COPD (chronic obstructive pulmonary disease) Current Visit: Yes Status: Acute Assessment and plan: Treating with tapering course of steroids and bronchodilators. Qualifiers: COPD type: COPD with acute exacerbation Qualified Code(s): J44.1 - Chronic obstructive pulmonary disease with (acute) exacerbation (10) Diarrhea Current Visit: Yes Status: Acute Assessment and plan: Noninfectious. Could be antibiotic related. Continue lactobacillus and use Imodium as needed Qualifiers: Diarrhea type: functional diarrhea Qualified Code(s): K59.1 - Functional diarrhea - Time Spent With Patient Total time spent is greater than 50% in coordination of care (as documented) at patient's floor/unit and/or counseling patient: - Subjective Interval history: Doing better overall. Denies any new complaints at this time. Tolerating diet well. No shortness of breath. No chest pain. Awaiting placement to skilled rehabilitation - Constitutional Vitals: Temp Pulse Resp BP Pulse Ox 97.5 F L 95 18 131/58 90 02/18/18 11:21 02/18/18 11:21 02/18/18 11:21 02/18/18 11:21 02/18/18 11:21 General appearance: Present: cooperative, A&O X 3, pleasant, no acute distress, answers questions appropriately - Neck Neck exam general surgery: Present: supple, trachea midline. Absent: lymphadenopathy - Respiratory Respiratory exam: Present: CTAB. Absent: accessory muscle use, rales, rhonchi, wheezes - Cardiovascular Cardiovascular exam: Present: RRR, +S1, +S2. Absent: diastolic murmur, gallop, rubs, systolic murmur - GI/Abdominal GI/Abdominal exam: Present: normal bowel sounds, soft, no peritoneal signs. Absent: distended, tenderness - Extremities Exam Extremities exam: Present: warm, radial pulses palpable and symmetrical. Absent : calf tenderness, cyanotic, pedal edema Internal Medicine: Result - Labs CBC & Chem 7: 02/17/18 04:37 02/17/18 04:37 - ABG Interpretation ABG results: ABG ABG pH 7.31 pH Units (7.32-7.45) L 02/11/18 11:02 ABG pCO2 42 mmHg (35-45) 02/11/18 11:02 ABG pO2 62 mmHg (85-104) L 02/11/18 11:02 ABG O2 Saturation 89 % (95-98) L 02/11/18 11:02 - VTE Documentation of Mechanical Device: Intermittent pneumatic compression device Consult Discharge Plan - Plan Instructions: Acute Respiratory Distress Syndrome (DC), Pancreatitis (DC), Acute Kidney Injury (DC), Chronic Obstructive Pulmonary Disease (DC) Referrals: Akil Peck MD [Non-Partnered Physician] - 02/26/18 3:10 pm Chau Cadena MD [Primary Care Provider] - [facility] Prescriptions: Budesonide/Formoterol 160/4.5 [Symbicort 160/4.5] 2 puff IH BIDR #1 inhaler Cholecalciferol (Vitamin D3) [Vitamin D] 1,000 unit PO DAILY #30 capsule predniSONE [PredniSONE] 10 mg PO DAILY 6 Days tablet
== END 2018-02-18 13:14 | DRG 438 ==
LOC: SUATTDRO 21:52 → 3ANU 21:52 → UNDODISIN 02-10 15:30 → 2NNU 02-10 16:22
PROVIDERS: ADMIT Student in an Organized Health Care Education/Training Program; ATTEND Internal Medicine